=== PATIENT | male | born 1995 | race Caucasian/White ===

== ENCOUNTER → 2017-05-13 | Outpatient (CLI) | payer OTHER, SELFPAY | PROVIDERS: Family Provider Family Medicine; Visit Provider Family Medicine | DX: M79.641 Pain in right hand (principal) | CPT/HCPCS: 73130 ==

== ENCOUNTER 2017-08-09 09:43 | Emergency (ER) | payer OTHER, SELFPAY ==
[2017-08-09 09:54] VITALS: BMI 26.3
--- NOTE | 2017-08-09 09:55 | XR_ITS ---
XR wrist LT min 3V HISTORY: Pain following injury ITS.REASON: S/P FALL ORDERING PHYSICIAN: Misty Chase PATIENT AGE: 22 years COMPARISON: None FINDINGS: No acute fracture or dislocation. No lytic or blastic change. There is normal mineralization.. The joint spaces are well-preserved. No significant degenerative/arthritic changes. No erosive changes evident.. 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 IMPRESSION: 1. No acute fracture. 2. 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
--- NOTE | 2017-08-09 09:55 | XR_ITS ---
XR hand LT min 3V HISTORY: Pain following injury ITS.REASON: S/P FALL ORDERING PHYSICIAN: Misty Chase PATIENT AGE: 22 years COMPARISON: None FINDINGS: No fracture or dislocation. No lytic or blastic change. There is normal mineralization.. The joint spaces are well-preserved. No significant degenerative/arthritic changes. No erosive changes evident.. IMPRESSION: Negative, no acute finding
[2017-08-09 09:56] VITALS: BP 143/94; PULSE 96; RESP 20; TEMP 36.8; O2SAT 98; BMI 26.3
--- NOTE | 2017-08-09 10:28 | HMH.EDUTC ---
[facility] [place]ression: Wrist fracture, left Qualifiers: Encounter type: initial encounter Fracture type: closed Qualified Code(s): S62.102A - Fracture of unspecified carpal bone, left wrist, initial encounter for closed fracture Disposition: Home, Self-Care Condition on Discharge: Good Instructions: DI for Wrist Fracture, How To Perform RICE (Rest, Ice, Compress, Elevate) Additional Instructions: *RICE, Rest the extremity, Ice 15-20 minutes 3-4 times daily, Compress- wear the jeffy wrap as discussed as much as possible to help reduce swelling and pain, Elevate the extremity when at rest *Jeffy wrap is for support and help control swelling, use it except in the shower. Be sure that is not to tight but not to loose either *Elevate when resting *Ibuprofen every 6-8 hours as needed for pain an inflammation. If need something more can take Tylenol in between doses of Ibuprofen to help Immediately follow up for new or worsening of symptoms, or no noticeable improvement over the next 3-5 days I addded a lortab 7.5 mg po bid prn q 12 # 6 neurovasular check every hpur while awake. Call for appointment with Dr matthews at orthopedic in AM call Dr Granados in AM for a recheck on final x ray report. Referrals: Jignesh Granados MD [Primary Care Provider] - (On Thursday for further treatment/referral ) Yoseph Munoz MD [Staff Physician] - Ming Silva MD [Staff Physician] - Forms: Work/School Release Time of Disposition: 10:48 Medical Decision Making - Medical Records Medical records reviewed: Yes: I reviewed the patient's medical records. - Parviz Inquiry Pt receiving controlled substance: No Parviz was queried for this patient: No Vital Signs: 08/09/17 09:56 Temperature 98.2 F Temperature Source Oral Pulse Rate [Right Brachial] 96 H Respiratory Rate 20 Blood Pressure [Right Arm] 143/94 Blood Pressure Mean [Right Arm] 110 Blood Pressure Source [Right Arm] Automatic Cuff Blood Pressure Position [Right Arm] Sitting 02 Sat by Pulse Oximetry 98 Oxygen Delivery Method Room Air - Radiology Data #1 Image(s): Wrist ulna fracture (questionable new or old fracture) - Reevaluation(s) Time: 10:44 Reevaluation #1: Consulted with Dr Sadek ER physican and agreed apply velcro splint place patient in arm sling and have him follow up with orthopedics/hand surgery at where patient was previously seen for old fracture. Called hand awaiting call back for appointment and patient undergoing evaluation by Dr Waggoner [facility] [place] - General Stated complaint: ao [id number] hurt left hand Time Seen by Provider: 08/09/17 10:10 Mode of Arrival: Family Vehicle Source of Information: Patient Limitations: No Limitations Description of Symptoms (Recalled from Triage Doc. by RN): S/P FALL C/O PAIN LEFT WRIST/HAND HEENT Symptoms (Recalled from RN notes): No Resp Symptoms (Recalled from RN notes): No Skin Symptoms (Recalled from RN notes): No MS Symptoms (Recalled from RN notes): Yes Functional Status (Recalled from RN notes): N/A - History of Present Illness Provider Complaint: Patient was helping younger siblings and was playing in the snow with them when he slipped and fell and landed on his left hand/wrist State that he felt it pop state that he immediately begin to have swelling and tenderness in the wrist and knew he had broken it State that he has broken his arm before and this felt the same - Related Data Home Medications Medication Instructions Recorded Confirmed No Known Home Medications [No 08/09/17 08/09/17 Known Home Medications] Allergies Allergy/AdvReac Type Severity Reaction Status Date / Time No Known Allergies Allergy Verified 08/09/17 09:53 - Worker's Comp Is this a Worker's Comp case?: No [facility] History I have reviewed the patient's past medical history: Yes Laterality Cases: Bilateral: Tonsillectomy - Social History Alcohol Intake: never - Psychiatric Hist
--- NOTE | 2017-08-09 10:32 | ED_ITS ---
[facility] [place] Clinical Impression: Wrist fracture, left Qualifiers: Encounter type: initial encounter Fracture type: closed Qualified Code(s): S62.102A - Fracture of unspecified carpal bone, left wrist, initial encounter for closed fracture Disposition: Home, Self-Care Condition on Discharge: Good Instructions: DI for Wrist Fracture, How To Perform RICE (Rest, Ice, Compress, Elevate) Additional Instructions: *RICE, Rest the extremity, Ice 15-20 minutes 3-4 times daily, Compress- wear the jeffy wrap as discussed as much as possible to help reduce swelling and pain, Elevate the extremity when at rest *Jeffy wrap is for support and help control swelling, use it except in the shower. Be sure that is not to tight but not to loose either *Elevate when resting *Ibuprofen every 6-8 hours as needed for pain an inflammation. If need something more can take Tylenol in between doses of Ibuprofen to help Immediately follow up for new or worsening of symptoms, or no noticeable improvement over the next 3-5 days I addded a lortab 7.5 mg po bid prn q 12 # 6 neurovasular check every hpur while awake. Call for appointment with Dr matthews at orthopedic in AM call Dr Granados in AM for a recheck on final x ray report. Referrals: Jignesh Granados MD [Primary Care Provider] - (On Thursday for further treatment/ referral ) Yoseph Munoz MD [Staff Physician] - Ming Silva MD [Staff Physician] - Forms: Work/School Release Time of Disposition: 10:48 Medical Decision Making - Medical Records Medical records reviewed: Yes: I reviewed the patient's medical records. - Parviz Inquiry Pt receiving controlled substance: No Parviz was queried for this patient: No Vital Signs: 08/09/17 09:56 Temperature 98.2 F Temperature Source Oral Pulse Rate [Right Brachial] 96 H Respiratory Rate 20 Blood Pressure [Right Arm] 143/94 Blood Pressure Mean [Right Arm] 110 Blood Pressure Source [Right Arm] Automatic Cuff Blood Pressure Position [Right Arm] Sitting 02 Sat by Pulse Oximetry 98 Oxygen Delivery Method Room Air - Radiology Data #1 Image(s): Wrist ulna fracture (questionable new or old fracture) - Reevaluation(s) Time: 10:44 Reevaluation #1: Consulted with Dr Sadek ER physican and agreed apply velcro splint place patient in arm sling and have him follow up with orthopedics/hand surgery at where patient was previously seen for old fracture. Called hand awaiting call back for appointment and patient undergoing evaluation by Dr Waggoner [facility] [place] HPI - General Stated complaint: ao [id number] hurt left hand Time Seen by Provider: 08/09/17 10:10 Mode of Arrival: Family Vehicle Source of Information: Patient Limitations: No Limitations Description of Symptoms (Recalled from Triage Doc. by RN): S/P FALL C/O PAIN LEFT WRIST/HAND HEENT Symptoms (Recalled from RN notes): No Resp Symptoms (Recalled from RN notes): No Skin Symptoms (Recalled from RN notes): No MS Symptoms (Recalled from RN notes): Yes Functional Status (Recalled from RN notes): N/A - History of Present Illness Provider Complaint: Patient was helping younger siblings and was playing in the snow with them when he slipped and fell and landed on his left hand/wrist State that he felt it pop state that he immediately begin to have swelling and tenderness in the wrist and knew he had broken it State that he has broken his arm before and this felt the same - Related Data Home
--- NOTE | 2017-08-09 11:01 | HMH.EDUPEXT ---
ED Disposition Clinical Impression: Wrist fracture, left Qualifiers: Encounter type: initial encounter Fracture type: closed Qualified Code(s): S62.102A - Fracture of unspecified carpal bone, left wrist, initial encounter for closed fracture Disposition: Home, Self-Care Condition on Discharge: Fair Instructions: DI for Wrist Fracture, How To Perform RICE (Rest, Ice, Compress, Elevate) Additional Instructions: *RICE, Rest the extremity, Ice 15-20 minutes 3-4 times daily, Compress- wear the jeffy wrap as discussed as much as possible to help reduce swelling and pain, Elevate the extremity when at rest *Jeffy wrap is for support and help control swelling, use it except in the shower. Be sure that is not to tight but not to loose either *Elevate when resting *Ibuprofen every 6-8 hours as needed for pain an inflammation. If need something more can take Tylenol in between doses of Ibuprofen to help Immediately follow up for new or worsening of symptoms, or no noticeable improvement over the next 3-5 days I addded a lortab 7.5 mg po bid prn q 12 # 6 neurovasular check every hpur while awake. Call for appointment with Dr pete at orthopedic in AM call Dr Granados in AM for a recheck on final x ray report. Referrals: Yoseph Munoz MD [Staff Physician] - Ming Silva MD [Staff Physician] - Jignesh Granados MD [Primary Care Provider] - (On Thursday for further treatment/referral ) - Critical Care Critical Care Time: No Attestation: On 08/09/17, the high probability of a clinically significant, sudden or life threatening deterioration of the following system(s) required my full and direct attention, intervention and personal management. The time I documented below is in addition to time spent performing reported procedures but includes the following listed in this critical care notation. Medical Decision Making - Parviz Inquiry Pt receiving controlled substance: No Parviz was queried for this patient: No Vital Signs: 08/09/17 09:56 Temperature 98.2 F Temperature Source Oral Pulse Rate [Right Brachial] 96 H Respiratory Rate 20 Blood Pressure [Right Arm] 143/94 Blood Pressure Mean [Right Arm] 110 Blood Pressure Source [Right Arm] Automatic Cuff Blood Pressure Position [Right Arm] Sitting 02 Sat by Pulse Oximetry 98 Oxygen Delivery Method Room Air - Radiology Data #1 Image(s): Wrist, Hand Image Reviewed: Yes I reviewed the patient's radiology image Preliminary Findings: Abnormal Nondisplaced ulnar styloid fracture, carpal, metacarpal and phalangeal bones were intact. Intact radial ulnar lunate line. Medical Decision Narrative: Prior to discharge the patient was reevaluated he remained neurovascularly intact. Motor was 5/5, intact pinprick sensation, and cap refill was ne second. I spke with Dr Romero the hand surgeon who wanted me to discuss with [facility] trauma. I called Dr Pete who agreed to see the patient in the clinic [phone]. I faxed the patient face sheet to [facility] and gave the patient the contact number to call for an apppointment in am. Upper Extremity HPI - General Stated Complaint: ao [id number] hurt left hand Time Seen by Provider: 08/09/17 10:10 Mode of Arrival: Family Vehicle Source of Information: Patient Limitations: No Limitations Description of Symptoms (Recalled from ER Triage Doc. by RN): S/P FALL C/O PAIN LEFT WRIST/HAND - History of Present Illness HPI narrative: 22 years old white male with a prior history of for mild fracture is patient of Dr. Lindsay at orthopedic surgery. This morning, the patient was building a snowman with his brother and sister when he slipped on ice landed on the hyperextended wrist with a result of pain and swelling all over the left fifth metacarpal region. There is no loss of movement there is no color change. He complains of a small area of numbness over the left fourth middle phalanges. But he has intact sensation on t
--- NOTE | 2017-08-09 11:04 | ED_ITS ---
ED Disposition Clinical Impression: Wrist fracture, left Qualifiers: Encounter type: initial encounter Fracture type: closed Qualified Code(s): S62.102A - Fracture of unspecified carpal bone, left wrist, initial encounter for closed fracture Disposition: Home, Self-Care Condition on Discharge: Fair Instructions: DI for Wrist Fracture, How To Perform RICE (Rest, Ice, Compress, Elevate) Additional Instructions: *RICE, Rest the extremity, Ice 15-20 minutes 3-4 times daily, Compress- wear the jeffy wrap as discussed as much as possible to help reduce swelling and pain, Elevate the extremity when at rest *Jeffy wrap is for support and help control swelling, use it except in the shower. Be sure that is not to tight but not to loose either *Elevate when resting *Ibuprofen every 6-8 hours as needed for pain an inflammation. If need something more can take Tylenol in between doses of Ibuprofen to help Immediately follow up for new or worsening of symptoms, or no noticeable improvement over the next 3-5 days I addded a lortab 7.5 mg po bid prn q 12 # 6 neurovasular check every hpur while awake. Call for appointment with Dr pete at orthopedic in AM call Dr Granados in AM for a recheck on final x ray report. Referrals: Yoseph Munoz MD [Staff Physician] - Ming Silva MD [Staff Physician] - Jignesh Granados MD [Primary Care Provider] - (On Thursday for further treatment/ referral ) - Critical Care Critical Care Time: No Attestation: On 08/09/17, the high probability of a clinically significant, sudden or life threatening deterioration of the following system(s) required my full and direct attention, intervention and personal management. The time I documented below is in addition to time spent performing reported procedures but includes the following listed in this critical care notation. Medical Decision Making - Parviz Inquiry Pt receiving controlled substance: No Parviz was queried for this patient: No Vital Signs: 08/09/17 09:56 Temperature 98.2 F Temperature Source Oral Pulse Rate [Right Brachial] 96 H Respiratory Rate 20 Blood Pressure [Right Arm] 143/94 Blood Pressure Mean [Right Arm] 110 Blood Pressure Source [Right Arm] Automatic Cuff Blood Pressure Position [Right Arm] Sitting 02 Sat by Pulse Oximetry 98 Oxygen Delivery Method Room Air - Radiology Data #1 Image(s): Wrist, Hand Image Reviewed: Yes I reviewed the patient's radiology image Preliminary Findings: Abnormal Nondisplaced ulnar styloid fracture, carpal, metacarpal and phalangeal bones were intact. Intact radial ulnar lunate line. Medical Decision Narrative: Prior to discharge the patient was reevaluated he remained neurovascularly intact. Motor was 5/5, intact pinprick sensation, and cap refill was ne second. I spke with Dr Romero the hand surgeon who wanted me to discuss with [facility] trauma. I called Dr Pete who agreed to see the patient in the clinic [phone]. I faxed the patient face sheet to [facility] and gave the patient the contact number to call for an apppointment in am. Upper Extremity HPI - General Stated Complaint: ao [id number] hurt left hand Time Seen by Provider: 08/09/17 10:10 Mode of Arrival: Family Vehicle Source of Information: Patient Limitations: No Limitations Description of Symptoms (Recalled from ER Triage Doc. by RN): S/P FALL C/O PAIN LEFT WRIST/HAND - History of Present Illness HPI narrati
[2017-08-09 11:35] VITALS: BP 140/88; PULSE 90; RESP 20; TEMP 36.6; O2SAT 97
== END 2017-08-09 11:37 | disposition home or self-care (01) ==
PROVIDERS: Emergency Provider Nurse Practitioner; Family Provider Family Medicine; PCP Family Medicine
DX: S62.102A Fracture of unspecified carpal bone, left wrist, initial encounter for closed fracture (principal); W00.0XXA Fall on same level due to ice and snow, initial encounter; Y92.018 Other place in single-family (private) house as the place of occurrence of the external cause
CPT/HCPCS: 73110; 73130; 99203

== ENCOUNTER 2019-11-08 13:01 | Emergency (ER) | payer OTHER, SELFPAY ==
[2019-11-08 13:01] VITALS: BP 148/89; PULSE 86; RESP 16; TEMP 38.1; O2SAT 97; BMI 25.0
--- NOTE | 2019-11-08 13:17 | HMH.EDUTC ---
[facility] [place] Impression: Upper respiratory infection Qualifiers: URI type: unspecified URI Qualified Code(s): J06.9 - Acute upper respiratory infection, unspecified Disposition: Home, Self-Care Condition on Discharge: Good Instructions: Sore Throat, DI for Sinusitis, DI for Cough -- Adult, DI for Fever (Symptom) -- Adult, Preventing the Spread of Coronavirus Discharge Instructions Additional Instructions: *Monitor Temp, Over the counter Motrin or Tylenol as directed/as needed Tylenol every 4 hours and Motrin every 6 hours (as long as your family doctor has told you that you can take it) for fever or pain. and straight to ER if unable to lower temp less than 101.0 after medication given *Warm salt water gargles may help to soothe the throat *Throat Lozenges *Warm fluids like tea with honey may help to soothe the throat *Sleep elevated *Humidifier/Vaporizer Make sure to take medication as prescribed You may call back tomorrow evening for your test results of your COVID19 test Go home and self quarantine as advised in [facility], no return to work until COVID19 test back with a negative result You was given handout with instructions, make sure that you are at home self isolating and not being out around other people Your throat swab was sent for culture. Those results are typically sent to your primary care. Be sure to follow up in 2-3 days with your family doctor/primary care physician if no improvement so they can review those result and treat if necessary. If you don?t have a primary care doctor, I recommend you get one but in the mean time, you will have to return to a walk in clinic Follow up IMMEDIATELY for new or worsening symptoms or no Noticeable improvement over the next 48-72 hours. 911 for difficulty breathing or swallowing Prescriptions: Benzonatate [Tessalon Perle 100mg Cap*] 100 mg PO TID PRN #15 cap PRN Reason: Cough Transmission Status: Sent to [facility] Azithromycin [Z-Jose Juan 250mg Tab] 250 mg PO DIRECTED #6 tab Transmission Status: Sent to [facility] Referrals: Catracho Sage MD [Primary Care Provider] - As needed Forms: Work/School Release Time of Disposition: 13:36 Medical Decision Making - Parviz Inquiry Pt receiving controlled substance: No Parviz was queried for this patient: No Vital Signs: 11/08/19 13:01 Temperature 100.5 F H Temperature Source Oral Pulse Rate [Left Radial] 86 Respiratory Rate 16 Blood Pressure [Right Arm] 148/89 H Blood Pressure Mean [Right Arm] 108 Blood Pressure Source [Right Arm] Automatic Cuff Blood Pressure Position [Right Arm] Sitting 02 Sat by Pulse Oximetry 97 Oxygen Delivery Method Room Air - Lab Data Lab results reviewed: Yes: I reviewed the patient's lab results. Lab Results 11/08/19 13:14: Strep Scn Rapid Clinic Negative Orders (Tests/Meds): ED MEDICATIONS Discontinued Medications Generic Name Dose Route Start Last Admin Trade Name Aminata PRN Reason Stop Dose Admin Ibuprofen 600 mg 11/08/19 13:19 11/08/19 13:22 Motrin 600mg Tablet PO 11/08/19 13:20 Not Given ONCE ONE Ibuprofen 400 mg 11/08/19 13:21 11/08/19 13:22 Motrin 400mg Tablet PO 11/08/19 13:22 400 mg ONCE ONE Administration ORDERS Category Date Time Status SARS-CoV-2, TOMI Stat Lab 11/08/19 13:25 Ordered Strep Screen Confirmation Stat Micro 11/08/19 13:14 Ordered [facility] [place]PI - General Stated complaint: sore throat,vomiting Time Seen by Provider: 11/08/19 13:17 Mode of Arrival: Ambulatory Source of Information: Patient Limitations: No Limitations Description of Symptoms (Recalled from Triage Doc. by RN): pt stated he has had a sore throat and cough for the past two days and vomited once while in a coughing fit HEENT Symptoms (Recalled from RN notes): Yes Resp Symptoms (Recalled from RN notes): Yes Skin Symptoms (Recalled from RN notes): No MS Symptoms (Recalled from RN notes): No Functional Status (Recalled from RN
[2019-11-08 13:28] LABS: UTC Strep Screen (Rapid) Negative (Negative)
[2019-11-08 13:47] VITALS: BP 137/87; PULSE 87; RESP 16; TEMP 37.8; O2SAT 98
[2019-11-09 15:16] LABS: Covid-19 Nasal PCR Sendout Lex Not Detected
== END 2019-11-08 13:49 | disposition home or self-care (01) ==
PROVIDERS: Emergency Provider Nurse Practitioner; PCP Family Medicine
DX: J06.9 Acute upper respiratory infection, unspecified (principal)
CPT/HCPCS: 87880; 99201; U0004

== ENCOUNTER 2020-01-26 15:00 | Emergency (ER) | payer OTHER, SELFPAY ==
[2020-01-26 15:47] VITALS: BMI 25.7
--- NOTE | 2020-01-26 15:48 | XR_ITS ---
PROCEDURE: XR CHEST 2V CLINICAL HISTORY: PAIN WITH BREATHING COMPARISON: No exams were available for comparison FINDINGS: The cardiomediastinal silhouette and pulmonary vascularity are within normal limits. The lungs are clear without infiltrates, suspicious nodules, or pleural effusions. No acute bony abnormalities. IMPRESSION: No acute findings. Dictated by: Xiang Washington MD 01/26/2020 16:15 Xiang Washington MD in OV 01/26/2020 16:15
[2020-01-26 15:56] VITALS: BP 139/70; PULSE 88; RESP 16; TEMP 36.7; O2SAT 97; BMI 25.7
--- NOTE | 2020-01-26 16:02 | HMH.EDUTC ---
[facility] [place] Disposition Clinical Impression: Upper respiratory infection Qualifiers: URI type: unspecified URI Qualified Code(s): J06.9 - Acute upper respiratory infection, unspecified Disposition: Home, Self-Care Condition on Discharge: Good Instructions: DI for Acute Bronchitis, Acute Bronchitis, Sore Throat Additional Instructions: *Monitor Temp, Over the counter Motrin or Tylenol as directed/as needed Tylenol every 4 hours and Motrin every 6 hours (as long as your family doctor has told you that you can take it) for fever or pain. and straight to ER if unable to lower temp less than 101.0 after medication given *Warm salt water gargles may help to soothe the throat *Throat Lozenges *Warm fluids like tea with honey may help to soothe the throat *Sleep elevated *Humidifier/Vaporizer Take medication as prescribed Return if needed Follow up IMMEDIATELY for new or worsening symptoms or no Noticeable improvement over the next 48-72 hours. 911 for difficulty breathing or swallowing Prescriptions: methylPREDNISolone [Medrol 4mg tab] 4 mg PO DIRECTED #21 tab Transmission Status: Sent to [facility] Azithromycin [Z-Jose Juan 250mg Tab] 250 mg PO DIRECTED #6 tab Transmission Status: Sent to [facility] Referrals: Jignesh Granados MD [Primary Care Provider] - As needed Time of Disposition: 16:23 Medical Decision Making - Parviz Inquiry Pt receiving controlled substance: No Parviz was queried for this patient: No Vital Signs: 01/26/20 15:56 Temperature 98.1 F Temperature Source Oral Pulse Rate [Right Brachial] 88 Respiratory Rate 16 Blood Pressure [Right Arm] 139/70 Blood Pressure Mean [Right Arm] 93 Blood Pressure Source [Right Arm] Automatic Cuff Blood Pressure Position [Right Arm] Sitting 02 Sat by Pulse Oximetry 97 Oxygen Delivery Method Room Air [facility] [place] HPI - General Stated complaint: Chest congestion Time Seen by Provider: 01/26/20 16:02 Mode of Arrival: Ambulatory Source of Information: Patient Limitations: No Limitations Description of Symptoms (Recalled from Triage Doc. by RN): PATIENT STATES HE WAS EXPOSED TO CONCRETE DUST AT WORK APPROX 2 WEEKS AGO AND C/O PAIN IN HIS CHEST WITH DEEP BREATHS SINCE HEENT Symptoms (Recalled from RN notes): No Resp Symptoms (Recalled from RN notes): Yes Skin Symptoms (Recalled from RN notes): No MS Symptoms (Recalled from RN notes): No Functional Status (Recalled from RN notes): WNL - History of Present Illness Provider Complaint: Patient states that he was exposed to concrete dust about 2 weeks ago States that he has been having coughing and chest congestion and hurts at times when he takes a deep breath or coughs States that he was worried that he may have bronchitis - Related Data Previous Rx's Medication Instructions Recorded Azithromycin [Z-Jose Juan 250mg Tab] 250 mg PO DIRECTED #6 tab 01/26/20 methylPREDNISolone [Medrol 4mg 4 mg PO DIRECTED #21 tab 01/26/20 tab] Allergies Allergy/AdvReac Type Severity Reaction Status Date / Time No Known Allergies Allergy Verified 11/08/19 13:17 - Worker's Comp Is this a Worker's Comp case?: No [facility] History - Hepatitis A Screen Drug use history?: No High risk sexual behaviors?: No History of sexually transmitted infection?: No Currently employed?: No Childcare worker?: No Do you have indoor plumbing?: Yes Do you have electricity?: Yes Attestation statement:: This patient has been screened for Hepatitis A risk factors. I have reviewed the patient's past medical history: Yes Laterality Cases: Bilateral: Tonsillectomy - Social History Alcohol Intake: never Occupational Status: other ROS Obtained: Yes All systems reviewed & no additional complaints, Yes Systems reviewed as appropriate & no additional complaints - Constitutional Constitutional: Reports system reviewed and no additional complaints, except as docu - ENT Ears, Nose, Mouth, and Throat: Reports nasal congestio
[2020-01-26 16:31] VITALS: BP 139/70; PULSE 88; RESP 16; TEMP 36.7; O2SAT 97
== END 2020-01-26 16:34 | disposition home or self-care (01) ==
PROVIDERS: Emergency Provider Nurse Practitioner; PCP Family Medicine
DX: J06.9 Acute upper respiratory infection, unspecified (principal)
CPT/HCPCS: 71046; 99201

== ENCOUNTER 2020-03-19 09:25 | Emergency (ER) | payer SELFPAY ==
[2020-03-19 09:40] VITALS: BP 136/92; PULSE 75; RESP 20; TEMP 36.7; O2SAT 98; BMI 25.0
--- NOTE | 2020-03-19 09:59 | HMH.EDUTC ---
[facility] [place] Clinical Impression: Viral syndrome Pharyngitis Qualifiers: Pharyngitis/tonsillitis etiology: unspecified etiology Qualified Code(s): J02.9 - Acute pharyngitis, unspecified Disposition: Home, Self-Care Condition on Discharge: Good Instructions: DI for Viral Syndrome Additional Instructions: Drink plenty of fluids. Take tylenol for pain or fever. Take the medications as directed. Follow up with your regular doctor. GO TO THE ER FOR ANY WORSENING SYMPTOMS Prescriptions: Ondansetron [Zofran 4mg ODT] 4 mg PO Q8HP PRN #9 tab.rapdis PRN Reason: Nausea Transmission Status: Received by [facility] Azithromycin [Z-Jose Juan 250mg Tab*] 250 mg PO UD DOSE PK #6 tab Transmission Status: Received by [facility] Referrals: Jignesh Granados MD [Primary Care Provider] - Forms: Work/School Release Time of Disposition: 10:19 Medical Decision Making - Medical Records Medical records reviewed: No: I reviewed the patient's medical records. - Parviz Inquiry Pt receiving controlled substance: No Vital Signs: 03/19/20 09:40 03/19/20 10:23 Temperature 98.0 F 98.0 F Temperature Source Oral Pulse Rate 75 Pulse Rate [Right Brachial] 75 Respiratory Rate 20 20 Blood Pressure 136/92 H Blood Pressure [Right Arm] 136/92 H Blood Pressure Mean [Right Arm] 106 Blood Pressure Source [Right Arm] Automatic Cuff Blood Pressure Position [Right Arm] Sitting 02 Sat by Pulse Oximetry 98 Oxygen Delivery Method Room Air - Lab Data Lab results reviewed: Yes: I reviewed the patient's lab results. Orders (Tests/Meds): ORDERS Category Date Time Status Covid-19 Nasal PCR ([facility]) Routine Lab 03/19/20 10:24 Ordered [facility] [place] - General Stated complaint: possible covid exposure Time Seen by Provider: 03/19/20 09:59 - History of Present Illness Provider Complaint: He states that he began running a fever up to 100.5 and feeling bad for the past 3 days. His girlfriend has simialar symptoms. - Related Data Previous Rx's Medication Instructions Recorded Azithromycin [Z-Jose Juan 250mg Tab] 250 mg PO DIRECTED #6 tab 01/26/20 methylPREDNISolone [Medrol 4mg 4 mg PO DIRECTED #21 tab 01/26/20 tab] Azithromycin [Z-Jose Juan 250mg Tab*] 250 mg PO UD DOSE PK #6 tab 03/19/20 Ondansetron [Zofran 4mg ODT] 4 mg PO Q8HP PRN #9 tab.rapdis 03/19/20 Allergies Allergy/AdvReac Type Severity Reaction Status Date / Time No Known Allergies Allergy Verified 11/08/19 13:17 [facility] History - Hepatitis A Screen Attestation statement:: This patient has been screened for Hepatitis A risk factors. I have reviewed the patient's past medical history: Yes Laterality Cases: Bilateral: Tonsillectomy - Social History Alcohol Intake: never Occupational Status: other ROS Obtained: Yes All systems reviewed & no additional complaints - Constitutional Constitutional: Reports chills, Reports fever(s), Reports poor appetite, Reports malaise - Eyes Eyes: Denies eye discharge - ENT Ears, Nose, Mouth, and Throat: Denies dizziness, Denies otalgia, Reports sore throat - Cardiovascular Cardiovascular: Denies chest pain - Respiratory Respiratory: No chest congestion, Yes cough, No dyspnea, No stridor, No wheezing - Gastrointestinal Gastrointestingal: Reports: nausea. Denies: abdominal pain, diarrhea, vomiting Physical Exam - General General appearance: alert, in no apparent distress - Head Head exam: atraumatic, normocephalic, normal inspection - Eye Eye exam: Present: normal appearance, PERRL, EOMI - ENT ENT exam: Present: mucous membranes moist, normal external ear exam - Expanded ENT Exam TM/Canal exam: Bilateral TM: erythema, bulging Mouth exam: Present: normal external inspection Teeth exam: Present: normal inspection Throat exam: Present: tonsillar erythema, tonsillomegaly. Absent: tonsillar exudate, R peritonsillar mass, L peritonsillar mass - Neck Ne
[2020-03-19 10:23] VITALS: BP 136/92; PULSE 75; RESP 20; TEMP 36.7; O2SAT 98
[2020-03-19 19:02] LABS: UTC Influenza A Antigen Negative (Negative); UTC Strep Screen (Rapid) Negative (Negative)
[2020-03-19 19:03] LABS: UTC Influenza B Antigen Negative (Negative)
== END 2020-03-19 10:27 | disposition home or self-care (01) ==
PROVIDERS: Emergency Provider Nurse Practitioner Family; PCP Family Medicine
DX: Z20.828 Contact with and (suspected) exposure to other viral communicable diseases (principal); B34.9 Viral infection, unspecified; J02.9 Acute pharyngitis, unspecified
CPT/HCPCS: 87804; 87880; 99202; U0003

== ENCOUNTER 2020-05-08 11:50 | Emergency (ER) | payer SELFPAY ==
[2020-05-08 11:50] VITALS: BP 133/83; PULSE 79; RESP 18; TEMP 36.9; O2SAT 99; BMI 24.4
--- NOTE | 2020-05-08 12:01 | HMH.EDUTC ---
[facility] [place] Clinical Impression: Acute hemorrhoid Disposition: Home, Self-Care Condition on Discharge: Good Instructions: Hemorrhoids (Alternative Therapy), Hemorrhoids (Alternative Therapy), Hemorrhoids, Polyethylene Glycol 3350, Hydrocortisone Rectal Additional Instructions: Take a sitz bath. Fill a bathtub with 4 to 6 inches of warm water. You may also use a sitz bath moon that fits inside a toilet bowl. Sit in the sitz bath for 15 minutes. Do this 3 times a day, and after each bowel movement. The warm water can help decrease pain and swelling. Keep your anal area clean. Gently wash the area with warm water daily. Soap may irritate the area. After a bowel movement, wipe with moist towelettes or wet toilet paper. Dry toilet paper can irritate the area. Prevent hemorrhoids: Do not strain to have a bowel movement. Do not sit on the toilet too long. These actions can increase pressure on the tissues in your rectum and anus. Drink plenty of liquids. Liquids can help prevent constipation. Ask how much liquid to drink each day and which liquids are best for you. Eat a variety of high-fiber foods. Do not have anal sex. Anal sex can weaken the skin around your rectum and anus. Avoid heavy lifting. This can cause straining and increase your risk for another hemorrhoid. Over the counter Motrin may help with inflammation and pain Use medication as prescribed if no improvement follow up with your Family Doctor for further evaluation and examination Straight to ER if any life threatening symptoms Prescriptions: polyethylene glycoL 3350 [Miralax 17gm Packet] 17 gm PO DAILY #30 packet Transmission Status: Pending to [facility] Hydrocortisone [Proctosol-Hc] 1 applicatio TP BID #1 tube Transmission Status: Pending to [facility] Referrals: Jignesh Granados MD [Primary Care Provider] - As needed Forms: Work/School Release Time of Disposition: 12:10 Medical Decision Making - Parviz Inquiry Pt receiving controlled substance: No Parviz was queried for this patient: No Vital Signs: 05/08/20 11:50 Temperature 98.4 F Temperature Source Oral Pulse Rate [Left Brachial] 79 Respiratory Rate 18 Blood Pressure [Left Arm] 133/83 Blood Pressure Mean [Left Arm] 99 Blood Pressure Source [Left Arm] Automatic Cuff Blood Pressure Position [Left Arm] Sitting 02 Sat by Pulse Oximetry 99 Oxygen Delivery Method Room Air [facility] [place] - General Stated complaint: hemoroids Time Seen by Provider: 05/08/20 11:55 Mode of Arrival: Ambulatory Source of Information: Patient Limitations: No Limitations Description of Symptoms (Recalled from Triage Doc. by RN): PATIENT C/O HEMORRHOIDS X 1 WEEK HEENT Symptoms (Recalled from RN notes): No Resp Symptoms (Recalled from RN notes): No Skin Symptoms (Recalled from RN notes): No MS Symptoms (Recalled from RN notes): No Functional Status (Recalled from RN notes): WNL - History of Present Illness Provider Complaint: Patient states that he has had a hemorrhoid for about a week and has tried several over the counter medications and wipes and they have not helped so he come in to see if there was something else he could get States that today it was itching and felt swollen again - Related Data Previous Rx's Medication Instructions Recorded Hydrocortisone [Proctosol-Hc] 1 applicatio TP BID #1 tube 05/08/20 polyethylene glycoL 3350 [Miralax 17 gm PO DAILY #30 packet 05/08/20 17gm Packet] Allergies Allergy/AdvReac Type Severity Reaction Status Date / Time No Known Allergies Allergy Verified 11/08/19 13:17 - Worker's Comp Is this a Worker's Comp case?: No [facility] History - Hepatitis A Screen Drug use history?: No High risk sexual behaviors?: No History of sexually transmitted infection?: No Currently employed?: No Childcare worker?: No Do you have indoor plumbing?: Yes Do you have electricity?: Yes Attestation statement:: This patient has been screened for Hepatitis
[2020-05-08 12:14] VITALS: BP 133/83; PULSE 79; RESP 18; TEMP 36.9; O2SAT 99
== END 2020-05-08 12:15 | disposition home or self-care (01) ==
PROVIDERS: Emergency Provider Nurse Practitioner; PCP Family Medicine
DX: K64.4 Residual hemorrhoidal skin tags (principal)
CPT/HCPCS: 99201

== ENCOUNTER 2021-06-26 18:13 | Emergency (ER) | payer OTHER, SELFPAY ==
--- NOTE | 2021-06-26 18:10 | ECG_ITS ---
APPROVED REPORT Exam: Resting ECG HR:94 bpm ECG Measurements Heart Rate 94 AXES PA 153 P 73 QRSd 102 QRS 62 QT 344 T 50 QTc 396 Conclusion SINUS RHYTHM NORMAL ECG UNCONFIRMED REPORT Electronically signed by : Jignesh Crawford MD 06/27/2021 18:49:07
[2021-06-26 18:14] VITALS: BP 154/100; PULSE 94; RESP 18; TEMP 36.7; O2SAT 99; BMI 58.1
--- NOTE | 2021-06-26 18:25 | XR_ITS ---
PROCEDURE INFORMATION: Exam: XR Chest Exam date and time: 06/26/2021 6:25 PM Age: 26 years old Clinical indication: Pain; Chest pressure; Additional info: Cp , PT suzanne TECHNIQUE: Imaging protocol: XR of the chest. Views: 1 view. COMPARISON: CR XR CHEST 2V 01/26/2020 3:52 PM FINDINGS: Lungs: Lungs are clear. Pleural spaces: No pleural effusion. No pneumothorax. Heart/Mediastinum: Cardiomediastinal silouhette is within normal limits. Bones/joints: No acute osseous abnormality. Soft tissues: Unremarkable. IMPRESSION: No acute findings.
--- NOTE | 2021-06-26 18:26 | HMH.EDGENADL ---
ED Disposition Condition on Discharge: Good - Critical Care Critical Care Time: No <Sebastien Liao - Last Filed: 06/26/21 19:14> <Bradly Kelly - Last Filed: 06/26/21 21:54> Clinical Impression: Atypical chest pain Disposition: Home, Self-Care Instructions: DI for Atypical Chest Pain Additional Instructions: see pcp for follow up Referrals: Provider,Referral, MD [Primary Care Provider] - Attestation: On 06/26/21, the high probability of a clinically significant, sudden or life threatening deterioration of the following system(s) required my full and direct attention, intervention and personal management. The time I documented below is in addition to time spent performing reported procedures but includes the following listed in this critical care notation. Medical Decision Making - Medical Records Medical records reviewed: Yes: I reviewed the patient's medical records. - Parviz Inquiry Pt receiving controlled substance: No Parviz was queried for this patient: No - Lab Data Result diagrams: 06/26/21 18:16 06/26/21 18:16 <YanniSebastien - Last Filed: 06/26/21 19:14> - Lab Data Lab results reviewed: Yes: I reviewed the patient's lab results. Result diagrams: 06/26/21 18:16 06/26/21 18:16 - Radiology Data #1 Image(s): Chest Image Reviewed: Yes I have reviewed radiologist's interpretation Preliminary Findings: Normal/NAD - DEXTER Score for Non-Stemi Age of Patient: <30 years old Heart Rate: 90-109 bpm Systolic Blood Pressure: 140-159 mmHg Serum Creatinine: 0.80-1.19 mg/dl CHF Killip Class: I-No CHF Other Risk Factors: None Non-Stemi Risk Score: 46 <Bradly Kelly - Last Filed: 06/26/21 21:54> Vital Signs: 06/26/21 18:14 06/26/21 18:30 06/26/21 19:00 Temperature 98.0 F Temperature Source Oral Pulse Rate 85 75 Pulse Rate [Right Brachial] 94 H Respiratory Rate 18 14 14 Blood Pressure 145/98 H 135/91 H Blood Pressure [Right Arm] 154/100 H Blood Pressure Mean Blood Pressure Mean [Right Arm] 118 Blood Pressure Source [Right Arm] Automatic Cuff Blood Pressure Position [Right Arm] Supine 02 Sat by Pulse Oximetry 99 97 95 Oxygen Delivery Method Room Air 06/26/21 20:30 06/26/21 21:00 Temperature Temperature Source Pulse Rate 73 84 Pulse Rate [Right Brachial] Respiratory Rate 16 Blood Pressure 131/91 H 137/80 Blood Pressure [Right Arm] Blood Pressure Mean 94 Blood Pressure Mean [Right Arm] Blood Pressure Source [Right Arm] Blood Pressure Position [Right Arm] 02 Sat by Pulse Oximetry 96 97 Oxygen Delivery Method Room Air - Lab Data Lab Results 06/26/21 18:16: WBC 8.2, RBC 5.24, Hgb 16.0, Hct 47.9, MCV 91.4, MCH 30.5, MCHC 33.4, RDW 13.1, Plt Count 210, MPV 9.7, Neut % (Auto) 68.2, Lymph % (Auto) 25.0, Sully % (Auto) 5.1, Eos % (Auto) 1.0, Baso % (Auto) 0.7, Neut # (Auto) 5.6, Lymph # (Auto) 2.0, Sully # (Auto) 0.4, Eos # (Auto) 0.1, Baso # (Auto) 0.1 06/26/21 18:16: Sodium 139, Potassium 4.1, Chloride 96 L, Carbon Dioxide 28, Anion Gap 19.1 H, BUN 17, Creatinine 0.90, Estimated Creat Clear 139, Estimated GFR 101, Est GFR ( Amer) 122, Glucose 101 H, Calcium 10.3 H, Total Bilirubin 0.8, AST 64 H, ALT 58, Alkaline Phosphatase 81, Troponin I < 0.01, Total Protein 8.6 H, Albumin 5.5 H, Globulin 3.1, Albumin/Globulin Ratio 1.8 06/26/21 20:55: Troponin I < 0.01 Orders (Tests/Meds): ED MEDICATIONS Discontinued Medications Generic Name Dose Route Start Last Admin Trade Name Freq PRN Reason Stop Dose Admin Belladonna Alkaloids 60 ml 06/26/21 18:25 06/26/21 18:40 Gi Cocktail 60ml Udc PO 06/26/21 18:26 60 ml ONCE ONE Administration Ketorolac Tromethamine 30 mg 06/26/21 19:13 06/26/21 19:47 Ketorolac 30mg/Ml Vial IV 06/26/21 19:14 30 mg ONCE ONE Administration ORDERS Category Date Time Status Troponin I Q3H Lab 06/27/21 00:30 Ordered Medical Decision Narrative: ekg by me nsr, qr
[2021-06-26 18:30] VITALS: BP 145/98; PULSE 85; RESP 14; O2SAT 97
[2021-06-26 18:32] LABS: Basophils # 0.1 K/mm3 (0-0.2); Basophils % 0.7 % (0.1-2.0); Eosinophils # 0.1 K/mm3 (0.0-0.4); Hematocrit 47.9 % (42.0-52.0); Mean Corpuscular HGB Conc 33.4 g/dL (31.8-35.4); Mean Corpuscular Hemoglobin 30.5 pg (27.0-31.2); Mean Corpuscular Volume 91.4 fl (80-94); Mean Platelet Volume 9.7 fl (7.4-10.4); Monocytes # 0.4 K/mm3 (0.1-1.0); Monocytes % 5.1 % (1.7-9.3); Neutrophils # 5.6 K/mm3 (1.8-7.8); Neutrophils % 68.2 % (37.0-80.0); Platelet Count 210 K/mm3 (142-424); Red Blood Count 5.24 M/mm3 (4.60-6.20); Red Cell Distribution Width 13.1 % (11.5-17.5); White Blood Count 8.2 K/mm3 (4.8-10.8)
[2021-06-26 18:42] LABS: Alanine Aminotransferase 58 U/L (12-78); Albumin Level 5.5 g/dl (3.5-5.0); Albumin/Globulin Ratio 1.8 (1.1-1.8); Alkaline Phosphatase 81 U/L (38-126); Anion Gap 19.1 mEq/L (5-15); Aspartate Amino Transferase 64 U/L (17-59); Bilirubin,Total 0.8 mg/dl (0.2-1.3); Blood Urea Nitrogen 17 mg/dl (9-20); Calcium 10.3 mg/dl (8.4-10.2); Carbon Dioxide 28 mmol/L (22.0-30.0); Chloride 96 mmol/L (98-107); Creatinine Clearance Estimated 139 mL/min (50-200); Estimated Glomerular Filt Rate 101 ml/min (>60); GFR (African American) 122 ML/MIN (>60); Globulin 3.1 g/dL (1.3-3.2); Glucose 101 mg/dl (74-100); Potassium 4.1 mmoL/L (3.5-5.1); Sodium 139 mmol/L (136-145); Total Protein,Serum 8.6 g/dl (6.3-8.2)
[2021-06-26 18:57] LABS: Troponin I < 0.01 ng/ml (0.00-0.034)
[2021-06-26 19:00] VITALS: BP 135/91; PULSE 75; RESP 14; O2SAT 95
[2021-06-26 20:30] VITALS: BP 131/91; PULSE 73; RESP 16; O2SAT 96
[2021-06-26 21:00] VITALS: BP 137/80; PULSE 84; O2SAT 97
[2021-06-26 21:52] LABS: Troponin I < 0.01 ng/ml (0.00-0.034)
[2021-06-26 22:00] VITALS: BP 125/78; PULSE 80; RESP 20; TEMP 36.8; O2SAT 98
== END 2021-06-26 22:05 | disposition home or self-care (01) ==
PROVIDERS: Emergency Medicine; Emergency Provider Emergency Medicine
DX: R07.89 Other chest pain (principal)
CPT/HCPCS: 36415; 71045; 80053; 84484; 85025; 93005; 96375; 99282

== ENCOUNTER 2021-10-29 07:05 | Emergency (ER) | payer OTHER, SELFPAY ==
[2021-10-29] VITALS (8 sets, daily range): BP systolic 140–174; BP diastolic 88–116; PULSE 74–136; RESP 18–20; TEMP 36.9; O2SAT 98–99; BMI 24.4
--- NOTE | 2021-10-29 07:19 | CT_ITS ---
FINAL REPORT CLINICAL HISTORY: abd pain, vomiting COMPARISON: February 03, 2016 FINDINGS: CT OF THE ABDOMEN AND PELVIS WITH CONTRAST Axial CT images of the abdomen and pelvis were obtained after the administration of intravenous contrast. Coronal reformatted images were also obtained and reviewed.This study was performed with techniques to keep radiation doses as low as reasonably achievable (ALARA). Individualized dose reduction techniques using automated exposure control or adjustment of mA and/or kV according to the patient's size were employed. Abdomen: There is a calcified granuloma in the left lung base. The heart is normal in size. The liver is mildly fatty infiltrated. There is no evidence of mass or biliary ductal dilatation. There are questionable stones or sludge in the gallbladder. The spleen is unremarkable. No adrenal mass is present. The pancreas has an unremarkable appearance. The kidneys are normal, without evidence of mass or hydronephrosis. The aorta is normal in caliber. There is no free fluid or adenopathy. No mass or abnormal fluid collection is seen. There is mild wall thickening of the ascending colon and hepatic flexure of uncertain significance. Pelvis: The appendix is normal. The urinary bladder is unremarkable. No inflammatory process is seen. There is no evidence of mass or adenopathy. There is no evidence of bowel obstruction. IMPRESSION: Questionable stones or sludge in the gallbladder. Mild wall thickening of the ascending colon and hepatic flexure of uncertain significance may represent mild colitis. Mild fatty infiltration of the liver. Reviewed, Interpreted and Dictated by Bolivar Ojeda III, MD Transcribed by Heladio Miner Authenticated and [facility]
[2021-10-29 07:27] LABS: Microscopic, Urine URINE MICROSCOPIC (MICROSCOPIC)
[2021-10-29 07:28] LABS: Appearance,Urine CLEAR (Clear); Bilirubin,Urine Negative (Negative); Blood, Urine Negative (Negative); Color,Urine YELLOW (Yellow); Glucose,Urine (UA) Negative (Negative); Ketones,Urine Negative (Negative); Leukocyte Esterase,Urine Negative (Negative); Nitrate,Urine Negative (Negative); Protein,Urine Negative (Negative); Urobilinogen,Urine 0.2 EU/dl (0.2)
[2021-10-29 07:30] LABS: Chloride 100 mmol/L (98-107)
[2021-10-29 07:31] LABS: Potassium 3.8 mmoL/L (3.5-5.1); Sodium 135 mmol/L (136-145)
--- NOTE | 2021-10-29 07:31 | HMH.EDNVD ---
ED Disposition Clinical Impression: Colitis Abdominal pain Qualifiers: Abdominal location: upper abdomen, unspecified Qualified Code(s): R10.10 - Upper abdominal pain, unspecified Disposition: Home, Self-Care Condition on Discharge: Good Instructions: DI for Colitis Additional Instructions: fluids and trial of meds Prescriptions: Dicyclomine HCl [Bentyl 10mg capsule] 10 mg PO TID #21 cap Transmission Status: Pending to [facility] levoFLOXacin [Levaquin 500mg tab] 500 mg PO DAILY #7 tab Transmission Status: Pending to [facility] metroNIDAZOLE [metroNIDAZOLE 500mg Tablet] 500 mg PO TID #30 tab Transmission Status: Pending to [facility] Referrals: Provider,Referral, MD [Primary Care Provider] - - Critical Care Critical Care Time: No Attestation: On 10/29/21, the high probability of a clinically significant, sudden or life threatening deterioration of the following system(s) required my full and direct attention, intervention and personal management. The time I documented below is in addition to time spent performing reported procedures but includes the following listed in this critical care notation. Medical Decision Making - Medical Records Medical records reviewed: Yes: I reviewed the patient's medical records. - Parviz Inquiry Pt receiving controlled substance: No Vital Signs: 10/29/21 07:06 10/29/21 07:24 10/29/21 07:30 Temperature 98.4 F Temperature Source Oral Pulse Rate 89 86 Pulse Rate [Radial] 136 H Respiratory Rate 20 Blood Pressure 174/104 H 167/104 H Blood Pressure [Right Arm] 173/116 H Blood Pressure Mean 125 Blood Pressure Mean [Right Arm] 135 Blood Pressure Position Sitting Blood Pressure Position [Right Arm] Sitting 02 Sat by Pulse Oximetry 98 98 Oxygen Delivery Method Room Air Room Air 10/29/21 08:00 10/29/21 08:30 10/29/21 09:00 Temperature Temperature Source Pulse Rate 78 81 74 Pulse Rate [Radial] Respiratory Rate Blood Pressure 140/100 H 144/101 H 149/98 H Blood Pressure [Right Arm] Blood Pressure Mean 113 118 113 Blood Pressure Mean [Right Arm] Blood Pressure Position Blood Pressure Position [Right Arm] 02 Sat by Pulse Oximetry 99 99 99 Oxygen Delivery Method Room Air Room Air Room Air 10/29/21 10:47 Temperature Temperature Source Pulse Rate 78 Pulse Rate [Radial] Respiratory Rate Blood Pressure 140/88 Blood Pressure [Right Arm] Blood Pressure Mean 106 Blood Pressure Mean [Right Arm] Blood Pressure Position Blood Pressure Position [Right Arm] 02 Sat by Pulse Oximetry 99 Oxygen Delivery Method - Lab Data Lab results reviewed: Yes: I reviewed the patient's lab results. Lab Results 10/29/21 07:10: Urine Color Yellow, Urine Appearance Clear, Urine pH 6.0, Ur Specific [place] 1.020, Urine Protein Negative, Urine Glucose (UA) Negative, Urine Ketones Negative, Urine Blood Negative, Urine Nitrate Negative, Urine Bilirubin Negative, Urine Urobilinogen 0.2, Ur Leukocyte Esterase Negative, Urine RBC None, Urine WBC None, Ur Squamous Epith Cells Occasional, Urine Bacteria Trace 10/29/21 07:20: WBC 6.2, RBC 5.19, Hgb 16.5, Hct 48.0, MCV 92.6, MCH 31.7 H, MCHC 34.2, RDW 13.0, Plt Count 228, MPV 9.1, Neut % (Auto) 47.8, Lymph % (Auto) 42.2, [place] % (Auto) 7.4, Eos % (Auto) 1.4, Baso % (Auto) 1.2, Neut # (Auto) 2.9, Lymph # (Auto) 2.6, [place] # (Auto) 0.5, Eos # (Auto) 0.1, Baso # (Auto) 0.1 10/29/21 07:20: Sodium 135 L, Potassium 3.8, Chloride 100, Carbon Dioxide 26, Anion Gap 12.8, BUN 10, Creatinine 1.00, Estimated Creat Clear 132, Estimated GFR 90, Est GFR ( Amer) 108, Glucose 108 H, Calcium 9.7, Total Bilirubin 1.2, AST 123 H, ALT 81 H, Alkaline Phosphatase 83, Total Protein 7.7, Albumin 4.7, Globulin 3.0, Albumin/Globulin Ratio 1.6, Lipase 49 Result diagrams: 10/29/21 07:20 10/29/21 07:20 Orders (Tests/Meds): ED MEDICATIONS Generic Name Dose Route Start Last Admin
[2021-10-29 07:32] LABS: Basophils # 0.1 K/mm3 (0-0.2); Basophils % 1.2 % (0.1-2.0); Eosinophils # 0.1 K/mm3 (0.0-0.4); Eosinophils % 1.4 % (0.1-12.0); Hemoglobin 16.5 g/dL (14.1-18.0); Lymphocytes # 2.6 K/mm3 (0.7-4.5); Lymphocytes % 42.2 % (10-50); Mean Corpuscular HGB Conc 34.2 g/dL (31.8-35.4); Mean Corpuscular Hemoglobin 31.7 pg (27.0-31.2); Mean Corpuscular Volume 92.6 fl (80-94); Mean Platelet Volume 9.1 fl (7.4-10.4); Monocytes # 0.5 K/mm3 (0.1-1.0); Monocytes % 7.4 % (1.7-9.3); Neutrophils # 2.9 K/mm3 (1.8-7.8); Neutrophils % 47.8 % (37.0-80.0); Platelet Count 228 K/mm3 (142-424); Red Blood Count 5.19 M/mm3 (4.60-6.20); White Blood Count 6.2 K/mm3 (4.8-10.8)
[2021-10-29 07:33] LABS: Alanine Aminotransferase 81 U/L (12-78); Alkaline Phosphatase 83 U/L (38-126); Anion Gap 12.8 mEq/L (5-15); Aspartate Amino Transferase 123 U/L (17-59); Bilirubin,Total 1.2 mg/dl (0.2-1.3); Blood Urea Nitrogen 10 mg/dl (9-20); Carbon Dioxide 26 mmol/L (22.0-30.0); Creatinine Clearance Estimated 132 mL/min (50-200); Estimated Glomerular Filt Rate 90 ml/min (>60); GFR (African American) 108 ML/MIN (>60); Lipase 49 U/L (23-300)
[2021-10-29 07:34] LABS: Albumin Level 4.7 g/dl (3.5-5.0); Albumin/Globulin Ratio 1.6 (1.1-1.8); Calcium 9.7 mg/dl (8.4-10.2); Glucose 108 mg/dl (74-100); Total Protein,Serum 7.7 g/dl (6.3-8.2)
[2021-10-29 07:41] LABS: Bacteria,Urine Trace /lpf; Squamous Epithelial Cell,Urine Occasional #/hpf (0-5)
--- NOTE | 2021-10-29 07:43 | PC.NURSE ---
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
--- NOTE | 2021-10-29 07:47 | PC.NURSE ---
to ct per wheelchair
--- NOTE | 2021-10-29 08:03 | PC.NURSE ---
checked on pt at this time, pt states no needs at this time.
--- NOTE | 2021-10-29 08:31 | PC.NURSE ---
pt states improvement in pain. updated on plan of care
--- NOTE | 2021-10-29 09:28 | US_ITS ---
FINAL REPORT CLINICAL HISTORY: pain FINDINGS: Sonographic images of the right upper quadrant were obtained. The pancreas is obscured.The liver has increased echogenicity.The gallbladder appears normal without evidence of gallstones.There is no evidence of biliary ductal dilatation.The common duct measures 3 mm. Limited images of the right kidney are unremarkable. IMPRESSION: Fatty liver. Reviewed, Interpreted and Dictated by Bolivar Ojeda III, MD Transcribed by Heladio Miner Authenticated and [facility]
--- NOTE | 2021-10-29 09:50 | PC.NURSE ---
ultrasound staff at
--- NOTE | 2021-10-29 09:55 | PC.NURSE ---
waiting financial institution treasurer back from dr. mcbride from office. Rad staff stated gallbladder u/s was negative was calling to update dr. mcbride
--- NOTE | 2021-10-29 10:47 | PC.NURSE ---
Pt updated on POC, denies any pain at this time
--- NOTE | 2021-10-29 11:22 | PC.NURSE ---
Talked with Dr. Kelly, pt needs to fu with primary care doctor, list giving to pt for physicians
[2021-10-29 12:11] LABS: C-Reactive Protein < 0.3 mg/L (0-4)
[2021-10-29 12:14] LABS: Erythrocyte Sedimentation Rate 4 mm/hr (0-15)
== END 2021-10-29 11:44 | disposition home or self-care (01) ==
PROVIDERS: Emergency Provider Emergency Medicine
DX: R10.10 Upper abdominal pain, unspecified (principal); R11.2 Nausea with vomiting, unspecified; Z79.82 Long term (current) use of aspirin; Z79.899 Other long term (current) drug therapy
CPT/HCPCS: 74177; 76705; 80053; 81001; 83690; 85025; 85651; 86140; 96361; 96374; 96375; 99285; J2405; Q9967

== ENCOUNTER 2022-01-16 08:44 | Observation (INO) | payer OTHER, SELFPAY ==
[2022-01-16] VITALS (16 sets, daily range): BP systolic 117–175; BP diastolic 82–101; PULSE 101–134; RESP 14–18; TEMP -7.7–37.1; O2SAT 96–100; BMI 23.7; BMI 23.1
[2022-01-16 09:14] LABS: Microscopic, Urine URINE MICROSCOPIC (MICROSCOPIC)
--- NOTE | 2022-01-16 09:15 | HMH.EDGENADL ---
Discharge Plan Disposition Patient Disposition: Admitted As Inpatient Condition: Good Chief Complaint: PAIN Prescriptions Prescriptions: No Action polyethylene glycol 3350 17 GM powder in packet 17 gm PO DAILY Qty: 30 0RF hydrocortisone 28.35 GM cream with perineal applicator 1 applicatio TP BID Qty: 1 0RF metronidazole 500 MG tablet 500 mg PO TID Qty: 30 0RF levofloxacin 500 MG tablet 500 mg PO DAILY Qty: 7 0RF dicyclomine 10 MG capsule 10 mg PO TID Qty: 21 0RF Referrals Follow up/Referrals: Jignesh Granados MD [Primary Care Provider] - See instructions Clinical Impressions Clinical Impression: Acute alcoholic pancreatitis, Abdominal pain Discharge ED Provider: Ernst Candelaria General Adult HPI General Chief complaint: PAIN Stated complaint: abd pain,vomiting,headache Time Seen by Provider: 01/16/22 09:00 Mode of Arrival: Ambulatory Source of Information: Patient Limitations: No Limitations Description of Symptoms (Recalled from ER Triage Doc. by RN): pt to ed c/o epigastric pain that radiates to bilateral flank. pt reports thursday he had diarrhea and one episode of emesis. pt denies nausea on arrival to ed. pt reports standing makes the pain betterand movement makes the pain worse. History of Present Illness HPI narrative: This is a 26-year-old male with history of colitis who is presenting with acute onset abdominal pain. Patient states that 3 days prior to arrival, he began having abdominal pain while he was sitting on the couch. It was mild, burning at first, but has progressed to 10 out of 10, stabbing/burning pain that radiates to his back and bilateral flanks. He is presenting to the ED today because he has had inability to tolerate any food or drink by mouth. Denies bilious or bloody vomiting. Has associated dark urine without hematuria or dysuria. Patient has not had diarrhea, fevers, chills, constipation, blood in his stool, cough, shortness of breath, chest pain, recent travel, or any other concerning history. Related Data Previous Rx's Medication Instructions Recorded hydrocortisone 2.5 % topical cream 1 applicatio TP BID #1 tube 05/08/20 with perineal applicator polyethylene glycol 3350 17 gram 17 gm PO DAILY #30 packets 05/08/20 oral powder packet dicyclomine 10 mg capsule 10 mg PO TID #21 caps 10/29/21 levofloxacin 500 mg tablet 500 mg PO DAILY #7 tabs 10/29/21 metronidazole 500 mg tablet 500 mg PO TID #30 tabs 10/29/21 Allergies Allergy/AdvReac Type Severity Reaction Status Date / Time No Known Allergies Allergy Verified 11/08/19 13:17 [facility] Social History Smoking Status: Never smoker alcohol intake: never current occupational status: other Travel in the last 8 weeks: None ROS Obtained: Yes All systems reviewed & no additional complaints except as documented Physical Exam General General appearance: alert and in no apparent distress Head Head exam: atraumatic, normocephalic and normal inspection Eye Eye exam: Present normal appearance, PERRL and EOMI ENT ENT exam: Present normal exam, normal oropharynx, mucous membranes moist, TM's normal bilaterally and normal external ear exam Neck Neck exam: Present normal inspection, full ROM and trachea midline; Absent meningismus or lymphadenopathy Chest Chest inspection: Present normal inspection and symmetric chest wall rise; Absent tenderness Respiratory Respiratory exam: Present normal lung sounds bilaterally; Absent respiratory distress Cardiovascular Cardiovascular exam: Present regular rate and normal rhythm; Absent JVD Abdominal Exam Abdominal exam: Present soft, tenderness, guarding and normal bowel sounds; Absent distention, rebound or rigidity Abdominal tenderness: Present epigastrium and moderate Extremities Exam Extremities exam: Present normal inspection, full ROM and normal capillary refill; Absent calf tenderness Back Exam Back exam: Present normal inspection; Absent t
--- NOTE | 2022-01-16 09:16 | CT_ITS ---
FINAL REPORT CLINICAL HISTORY: severe epigastric and periumbillical pain COMPARISON: October 29, 2021 FINDINGS: CT OF THE ABDOMEN AND PELVIS WITH CONTRAST Axial CT images of the abdomen and pelvis were obtained after the administration of contrast. Coronal reformatted images were also obtained and reviewed.This study was performed with techniques to keep radiation doses as low as reasonably achievable (ALARA). Individualized dose reduction techniques using automated exposure control or adjustment of mA and/or kV according to the patient's size were employed. Abdomen: The lung bases are clear. The heart is normal in size. The liver is fatty infiltrated. The gallbladder is present. There is peripancreatic fat stranding and fluid which extends into the anterior para renal space, left greater than right. Findings are consistent with acute pancreatitis. There is no evidence of pancreatic necrosis, abscess, or pseudocyst. No adrenal mass is present. The spleen is normal size. The kidneys are normal, without evidence of mass or hydronephrosis. The aorta is normal in caliber. There are areas of wall thickening of the colon that is likely secondary inflammatory change. No mass or abnormal fluid collection is seen. Pelvis: The appendix is normal The urinary bladder is unremarkable. No inflammatory process is seen. There is no evidence of mass or adenopathy. There is no evidence of bowel obstruction. IMPRESSION: Acute pancreatitis without pancreatic necrosis, abscess or pseudocyst. Reviewed, Interpreted and Dictated by Bolivar Ojeda III, MD Transcribed by Heladio Miner Authenticated and [facility]
[2022-01-16 09:26] LABS: Basophils % 0.3 % (0.1-2.0); Eosinophils # 0.1 K/mm3 (0.0-0.4); Eosinophils % 0.7 % (0.1-12.0); Hematocrit 48.2 % (42.0-52.0); Hemoglobin 15.9 g/dL (14.1-18.0); Lymphocytes # 1.2 K/mm3 (0.7-4.5); Lymphocytes % 9.8 % (10-50); Mean Corpuscular Hemoglobin 32.2 pg (27.0-31.2); Mean Corpuscular Volume 97.5 fl (80-94); Mean Platelet Volume 10.3 fl (7.4-10.4); Monocytes # 0.5 K/mm3 (0.1-1.0); Monocytes % 3.6 % (1.7-9.3); Neutrophils # 10.7 K/mm3 (1.8-7.8); Neutrophils % 85.6 % (37.0-80.0); Platelet Count 162 K/mm3 (142-424); Red Blood Count 4.95 M/mm3 (4.60-6.20); Red Cell Distribution Width 14.4 % (11.5-17.5); White Blood Count 12.5 K/mm3 (4.8-10.8)
[2022-01-16 09:27] LABS: MANUAL DIFFERENTIAL MANUAL DIFFERENTIAL (MANUAL DIFF)
[2022-01-16 09:29] LABS: Appearance,Urine CLEAR (Clear); Bilirubin,Urine Negative (Negative); Blood, Urine TRACE-I (Negative); Color,Urine YELLOW (Yellow); Glucose,Urine (UA) Negative (Negative); Ketones,Urine Negative (Negative); Leukocyte Esterase,Urine Negative (Negative); Nitrate,Urine Negative (Negative); Protein,Urine 1+ (Negative); Specific Gravity, Urine 1.015 (1.005-1.030); Urobilinogen,Urine 0.2 EU/dl (0.2)
[2022-01-16 09:46] LABS: Alanine Aminotransferase 132 U/L (12-78); Albumin Level 3.8 g/dl (3.5-5.0); Albumin/Globulin Ratio 1.1 (1.1-1.8); Alkaline Phosphatase 179 U/L (38-126); Anion Gap 18.6 mEq/L (5-15); Aspartate Amino Transferase 122 U/L (17-59); Bilirubin,Total 1.9 mg/dl (0.2-1.3); Blood Urea Nitrogen 5 mg/dl (9-20); Calcium 8.8 mg/dl (8.4-10.2); Carbon Dioxide 21 mmol/L (22.0-30.0); Chloride 95 mmol/L (98-107); Creatinine Clearance Estimated 128 mL/min (50-200); Estimated Glomerular Filt Rate 90 ml/min (>60); GFR (African American) 108 ML/MIN (>60); Globulin 3.6 g/dL (1.3-3.2); Glucose 143 mg/dl (74-100); Lipase 339 U/L (23-300); Potassium 3.6 mmoL/L (3.5-5.1); Sodium 131 mmol/L (136-145); Total Protein,Serum 7.4 g/dl (6.3-8.2)
[2022-01-16 09:51] LABS: Bacteria,Urine Trace /lpf; RBC,Urine Occasional #/hpf (0-3); Squamous Epithelial Cell,Urine Occasional #/hpf (0-5)
[2022-01-16 10:00] LABS: Lymphocytes % 12 % (10-50); Monocytes % 2 % (2-9); Neutrophils % 86 % (42-76); Platelet Estimate Normal; RBC Morphology Normal; Total Cells Counted 100
--- NOTE | 2022-01-16 10:30 | PC.NURSE ---
PT AMBULATED TO BR
--- NOTE | 2022-01-16 10:36 | PC.NURSE ---
ALEAH MEDINA SPEAKING WITH RADIOLOGIST
--- NOTE | 2022-01-16 10:45 | PC.NURSE ---
LAB CALLED FOR ADDITIONAL LAB TEST
--- NOTE | 2022-01-16 10:58 | PC.NURSE ---
DR CHAMBERS PAGED FOR SERVICE PATIENT
--- NOTE | 2022-01-16 11:07 | PC.NURSE ---
CARE MANAGEMENT NOTIFIED OF ADMISSION
[2022-01-16 11:11] LABS: Triglycerides 2488 mg/dl (30-150)
[2022-01-16 11:31] LABS: Coronavirus 19, PCR Not Detected (NotDetected); Influenza A, PCR Not Detected (NotDetected); Influenza B, PCR Not Detected (NotDetected)
--- NOTE | 2022-01-16 11:38 | HMH.EDGENADL ---
Discharge Plan Disposition Patient Disposition: Admitted As Inpatient Condition: Good Clinical Impressions Clinical Impression: Acute alcoholic pancreatitis Qualifiers: Acute pancreatitis complication: no infection or necrosis Qualified Code(s): K85.20 - Alcohol induced acute pancreatitis without necrosis or infection Abdominal pain Qualifiers: Abdominal location: epigastric Qualified Code(s): R10.13 - Epigastric pain Discharge ED Provider: Ernst Candelaria General Adult HPI General Chief complaint: PAIN Stated complaint: abd pain,vomiting,headache Time Seen by Provider: 01/16/22 09:00 Mode of Arrival: Ambulatory Source of Information: Patient Limitations: No Limitations Description of Symptoms (Recalled from ER Triage Doc. by RN): pt to ed c/o epigastric pain that radiates to bilateral flank. pt reports thursday he had diarrhea and one episode of emesis. pt denies nausea on arrival to ed. pt reports standing makes the pain betterand movement makes the pain worse. Related Data Home Medications Medication Instructions Recorded Confirmed No Known Home Medications 01/16/22 01/16/22 Allergies Allergy/AdvReac Type Severity Reaction Status Date / Time No Known Allergies Allergy Verified 11/08/19 13:17 [facility] Social History (Updated 01/16/22 @ 13:37 by Stephy Stevenson RN) Smoking Status: Current some day smoker tobacco type: cigarettes and e-cigarettes alcohol intake: current current occupational status: employed and other Travel in the last 8 weeks: None household members: significant other housing: apartment lives independently: Yes marital status: single education level: high school service: No long-term: No well-balanced diet: daily or most days caffeine: No ROS Obtained: Yes All systems reviewed & no additional complaints except as documented Physical Exam General General appearance: alert and in no apparent distress Medical Decision Making Vital Signs: 01/16/22 09:04 01/16/22 09:00 01/16/22 09:31 Temperature 97.9 F Temperature Source Oral Pulse Rate 121 H 106 H Pulse Rate [Left Radial] 134 H Respiratory Rate 18 18 18 Blood Pressure 161/100 H 175/98 H Blood Pressure [Right Arm] 136/101 H Blood Pressure Mean 123 121 Blood Pressure Mean [Right Arm] 112 Blood Pressure Source [Right Arm] Blood Pressure Position [Right Arm] 02 Sat by Pulse Oximetry 96 98 100 Oxygen Delivery Method 01/16/22 10:00 01/16/22 10:35 01/16/22 11:00 Temperature Temperature Source Pulse Rate 108 H 107 H 114 H Pulse Rate [Left Radial] Respiratory Rate 18 18 Blood Pressure 160/94 H 161/98 H 157/100 H Blood Pressure [Right Arm] Blood Pressure Mean 116 116 107 Blood Pressure Mean [Right Arm] Blood Pressure Source [Right Arm] Blood Pressure Position [Right Arm] 02 Sat by Pulse Oximetry 99 100 98 Oxygen Delivery Method 01/16/22 11:30 01/16/22 12:00 01/16/22 13:13 Temperature 98.5 F Temperature Source Oral Pulse Rate 110 H 104 H Pulse Rate [Left Radial] 111 H Respiratory Rate 18 18 16 Blood Pressure 151/91 H 155/98 H Blood Pressure [Right Arm] 123/93 H Blood Pressure Mean 106 106 Blood Pressure Mean [Right Arm] 103 Blood Pressure Source [Right Arm] Automatic Cuff Blood Pressure Position [Right Arm] Supine 02 Sat by Pulse Oximetry 98 98 98 Oxygen Delivery Method Room Air 01/16/22 12:30 01/16/22 13:00 01/16/22 13:07 Temperature Temperature Source Pulse Rate 104 H 101 H 104 H Pulse Rate [Left Radial] Respiratory Rate 18 18 18 Blood Pressure 169/94 H 143/94 H 123/93 H Blood Pressure [Right Arm] Blood Pressure Mean 112 107 103 Blood Pressure Mean [Right Arm] Blood Pressure Source [Right Arm] Blood Pressure Position [Right Arm] 02 Sat by Pulse Oximetry 98 98 99 Oxygen Delivery Method Lab Data Lab Results 01/16/22 08:45: Urine Color Yellow, Urine Appearance
--- NOTE | 2022-01-16 13:20 | PC.NURSE ---
patient arrived to floor from ED in wheelchair at 13:11
--- NOTE | 2022-01-16 14:41 | P.CONPHA_ITS ---
[facility] Pharmacy VTE Monitoring Patient Demographics Admission date: 01/16/22 Report Date: 01/16/22 Time: 14:42 Patient Allergies No Known Allergies Allergy (Verified 11/08/19 13:17) Height: 1.85 m Weight: 79.605 kg Current Active Problems (Updated 01/16/22 @ 11:13 by Ernst Candelaria MD) Abdominal pain (Acute) Acute alcoholic pancreatitis (Acute) VTE Risk Labs: VTE Related Lab Results Hgb 15.9 g/dL (14.1-18.0) 01/16/22 09:00 Hct 48.2 % (42.0-52.0) 01/16/22 09:00 Plt Count 162 K/mm3 (142-424) 01/16/22 09:00 BUN 5 mg/dl (9-20) L 01/16/22 09:00 Creatinine 1.00 mg/dl (0.66-1.25) 01/16/22 09:00 Estimated Creat Clear 128 mL/min (50-200) 01/16/22 09:00 VTE Risk Level: Very Low Risk Clinical Trial Participant: No Prophylaxis VTE Prophylaxis Ordered?: Yes Types of VTE Prophylaxis: TEDS Knee High
--- NOTE | 2022-01-16 14:44 | P.CONPHA_ITS ---
[facility] Pharmacy VTE Monitoring Patient Demographics Admission date: 01/16/22 Report Date: 01/16/22 Time: 14:44 Patient Allergies No Known Allergies Allergy (Verified 11/08/19 13:17) Height: 1.85 m Weight: 79.605 kg Current Active Problems (Updated 01/16/22 @ 11:13 by Ernst Candelaria MD) Abdominal pain (Acute) Acute alcoholic pancreatitis (Acute) VTE Risk Labs: VTE Related Lab Results Hgb 15.9 g/dL (14.1-18.0) 01/16/22 09:00 Hct 48.2 % (42.0-52.0) 01/16/22 09:00 Plt Count 162 K/mm3 (142-424) 01/16/22 09:00 BUN 5 mg/dl (9-20) L 01/16/22 09:00 Creatinine 1.00 mg/dl (0.66-1.25) 01/16/22 09:00 Estimated Creat Clear 128 mL/min (50-200) 01/16/22 09:00 Was VTE Risk Assessment Performed: Yes VTE Risk Level: Very Low Risk Clinical Trial Participant: No Prophylaxis VTE Prophylaxis Ordered?: Yes Types of VTE Prophylaxis: TEDS Knee High Location of Applied Device: Bilateral Lower Extremeties
--- NOTE | 2022-01-16 16:00 | PC.NURSE ---
Patient VSS, pain level 11 states is better after receiving Protonix. Patient CIWA score <2, visitor at bedside and watching sports on TV. Shows no s/s of acute distress noted, bed is at lowest level for safety, call light within reach; will continue to monitor.
--- NOTE | 2022-01-16 20:48 | EXP.HP ---
History of Present Illness *Admission Date: 01/16/22 *Reason for visit:: Abdominal pain *History of present illness: Alfonso is a 26-year-old male who presented to the ER with a 3 day hx of abdominal pain.? Patient states that 3 days prior to arrival, he began having abdominal pain while he was sitting on the couch.? It was mild, burning at first, but has progressed to 10 out of 10, stabbing/burning pain that radiates to his back and bilateral flanks.? He has been unable tolerate any food or drink.? Denies bilious or bloody vomiting.? Has associated dark urine without hematuria or dysuria.? Patient has not had diarrhea, fevers, chills, constipation, blood in his stool, cough, shortness of breath, chest pain, recent travel, or any other concerning history. He does admit to drinking 1/2 to 1 pint of hard liquor per day. Report the findings consistent with pancreatitis. White count was mildly elevated as were his liver functions. Lipase elevated at 334. CT scan is consistent with acute pancreatitis with no necrosis or cystic formation. Also noted to have elevated triglycerides of 2200. [facility] Social History (Updated 01/16/22 @ 13:37 by Stephy Stevenson RN) Smoking Status: Current some day smoker tobacco type: cigarettes and e-cigarettes alcohol intake: current current occupational status: employed and other Travel in the last 8 weeks: None household members: significant other housing: apartment lives independently: Yes marital status: single education level: high school service: No chcf: No well-balanced diet: daily or most days caffeine: No Review of Systems Constitutional Constitutional: Reports system reviewed and no additional complaints, except as documented Eyes Eyes: Reports system reviewed and no additional complaints, except as documented ENT Ears, Nose, Mouth, and Throat: Reports system reviewed and no additional complaints, except as documented *Cardiovascular Cardiovascular: Denies chest pain and Denies dyspnea *Respiratory Respiratory: Denies chest congestion, Denies cough and Denies dyspnea *Gastrointestinal Gastrointestinal: Reports as per HPI *Genitourinary Genitourinary: Reports system reviewed and no additional complaints, except as documented *Musculoskeletal Musculoskeletal: Reports system reviewed and no additional complaints, except as documented *Neurologic Neurologic: Reports system reviewed and no additional complaints, except as documented Psychiatric Psychiatric: Reports system reviewed and no additional complaints, except as documented Meds Home Medications and Allergies Home Medications Medication Instructions Recorded Confirmed Type No Known Home Medications 01/16/22 01/16/22 History New Prescriptions to Start Prescriptions: Allergies Allergy/AdvReac Type Severity Reaction Status Date / Time No Known Allergies Allergy Verified 11/08/19 13:17 Exam Data for Last 24 hours Vital signs and Labs for Last 24 Hours: Temp Pulse Resp BP Pulse Ox 98.8 F 107 H 18 138/86 100 01/16/22 19:56 01/16/22 19:56 01/16/22 19:56 01/16/22 19:56 01/16/22 19:56 Laboratory Results - last 24 hr 01/16/22 08:45: Urine Color Yellow, Urine Appearance Clear, Urine pH 6.0, Ur Specific [place] 1.015, Urine Protein 1+, Urine Glucose (UA) Negative, Urine Ketones Negative, Urine Blood Trace-i, Urine Nitrate Negative, Urine Bilirubin Negative, Urine Urobilinogen 0.2, Ur Leukocyte Esterase Negative, Urine RBC Occasional, Urine WBC None, Ur Squamous Epith Cells Occasional, Urine Bacteria Trace 01/16/22 09:00: WBC 12.5 H, RBC 4.95, Hgb 15.9, Hct 48.2, MCV 97.5 H, MCH 32.2 H, MCHC 33.0, RDW 14.4, Plt Count 162, MPV 10.3, Neut % (Auto) 85.6 H, Lymph % (Auto) 9.8 L, [place] % (Auto) 3.6, Eos % (Auto) 0.7, Baso % (Auto) 0.3, Neut # (Auto) 10.7 H, Lymph # (Auto) 1.2, [place] # (Auto) 0.5, Eos # (Auto) 0.1, Baso # (Auto) 0.0, Total Counted 100, Neutrophils % (Manual) 86 H,
[2022-01-17 03:22] VITALS: BP 148/74; PULSE 106; RESP 18; TEMP 37.1; O2SAT 97
[2022-01-17 05:00] VITALS: BMI 23.3
--- NOTE | 2022-01-17 07:47 | PC.NURSE ---
Pt has remained a/ox4 t/o shift. Pt c/o LUQ abdominal pain 3x during shift rating it 10/10. Pt also c/o nausea 1x. PRN pain and nausea medication administered with favorable results. Around 0100, this RN entered room, pt states I think im going insane. When asked why he states he cannot stop moving his legs and every time he falls asleep, he jerks himself awake. With further assessment, pt also states he is a little nauseous, has a headache rating 4/10, and feels very anxious. Pt scored an 8 on CIWA scale. 1mg Ativan IV administered, pt states favorable results. Call light within reach.
[2022-01-17 07:49] LABS: Basophils % 0.4 % (0.1-2.0); Eosinophils # 0.1 K/mm3 (0.0-0.4); Eosinophils % 0.9 % (0.1-12.0); Hematocrit 43.1 % (42.0-52.0); Lymphocytes # 0.9 K/mm3 (0.7-4.5); Lymphocytes % 11.3 % (10-50); Mean Corpuscular HGB Conc 30.8 g/dL (31.8-35.4); Mean Corpuscular Hemoglobin 31.9 pg (27.0-31.2); Mean Corpuscular Volume 103.4 fl (80-94); Mean Platelet Volume 10.4 fl (7.4-10.4); Monocytes # 0.4 K/mm3 (0.1-1.0); Monocytes % 4.8 % (1.7-9.3); Neutrophils # 6.4 K/mm3 (1.8-7.8); Neutrophils % 82.5 % (37.0-80.0); Platelet Count 123 K/mm3 (142-424); Red Blood Count 4.17 M/mm3 (4.60-6.20); Red Cell Distribution Width 14.4 % (11.5-17.5); White Blood Count 7.8 K/mm3 (4.8-10.8)
[2022-01-17 08:00] VITALS: BP 141/86; PULSE 106; RESP 20; TEMP 37.9; O2SAT 96
[2022-01-17 08:15] LABS: Chloride 101 mmol/L (98-107); Potassium 3.9 mmoL/L (3.5-5.1); Sodium 135 mmol/L (136-145)
[2022-01-17 08:17] LABS: Alanine Aminotransferase 62 U/L (12-78); Aspartate Amino Transferase 77 U/L (17-59); Blood Urea Nitrogen 6 mg/dl (9-20); Creatinine Clearance Estimated 126 mL/min (50-200); Estimated Glomerular Filt Rate 90 ml/min (>60); GFR (African American) 108 ML/MIN (>60)
[2022-01-17 08:18] LABS: Albumin Level 3.2 g/dl (3.5-5.0); Albumin/Globulin Ratio 1.1 (1.1-1.8); Alkaline Phosphatase 130 U/L (38-126); Anion Gap 10.9 mEq/L (5-15); Bilirubin,Total 1.6 mg/dl (0.2-1.3); Calcium 8.3 mg/dl (8.4-10.2); Carbon Dioxide 27 mmol/L (22.0-30.0); Glucose 94 mg/dl (74-100); HDL Cholesterol 42 mg/dl (40-60); Lipase 83 U/L (23-300); Total Protein,Serum 6.2 g/dl (6.3-8.2)
--- NOTE | 2022-01-17 08:24 | EXP.PN ---
Subjective *Date: 01/17/22 *Time: 08:15 Interval history: Patient states he does not feel very well. He became anxious last night and received some Ativan which did help. He continues to have abdominal and left flank pain. He is voiding QS and urine is dark. Bowels have not moved. He would like to try some clear liquids. Lipase has normalized today. Triglycerides have improved to 480. Exam Data for Last 24 hours Vital signs and Labs for Last 24 Hours: Temp Pulse Resp BP Pulse Ox 98.7 F 106 H 18 148/74 H 97 01/17/22 03:22 01/17/22 03:22 01/17/22 03:22 01/17/22 03:22 01/17/22 03:22 Laboratory Results - last 24 hr 01/16/22 08:45: Urine Color Yellow, Urine Appearance Clear, Urine pH 6.0, Ur Specific [place] 1.015, Urine Protein 1+, Urine Glucose (UA) Negative, Urine Ketones Negative, Urine Blood Trace-i, Urine Nitrate Negative, Urine Bilirubin Negative, Urine Urobilinogen 0.2, Ur Leukocyte Esterase Negative, Urine RBC Occasional, Urine WBC None, Ur Squamous Epith Cells Occasional, Urine Bacteria Trace 01/16/22 09:00: WBC 12.5 H, RBC 4.95, Hgb 15.9, Hct 48.2, MCV 97.5 H, MCH 32.2 H, MCHC 33.0, RDW 14.4, Plt Count 162, MPV 10.3, Neut % (Auto) 85.6 H, Lymph % (Auto) 9.8 L, [place] % (Auto) 3.6, Eos % (Auto) 0.7, Baso % (Auto) 0.3, Neut # (Auto) 10.7 H, Lymph # (Auto) 1.2, [place] # (Auto) 0.5, Eos # (Auto) 0.1, Baso # (Auto) 0.0, Total Counted 100, Neutrophils % (Manual) 86 H, Lymphocytes % (Manual) 12, Monocytes % (Manual) 2, Platelet Estimate Normal, RBC Morphology Normal 01/16/22 09:00: Sodium 131 L, Potassium 3.6, Chloride 95 L, Carbon Dioxide 21 L, Anion Gap 18.6 H, BUN 5 L, Creatinine 1.00, Estimated Creat Clear 128, Estimated GFR 90, Est GFR ( Amer) 108, Glucose 143 H, Calcium 8.8, Total Bilirubin 1.9 H, AST 122 H, ALT 132 H, Alkaline Phosphatase 179 H, Total Protein 7.4, Albumin 3.8, Globulin 3.6 H, Albumin/Globulin Ratio 1.1, Lipase 339 H 01/16/22 09:00: Triglycerides 2488 H 01/16/22 09:50: Lactate 2.0 01/16/22 11:25: SARS-CoV-2 (PCR) Not detected, Influenza A Untype (PCR) Not detected, Influenza Type B (PCR) Not detected I & O for Last 24 hours: Intake & Output 01/14/22 01/15/22 01/16/22 01/17/22 11:59 11:59 11:59 11:59 Intake Total 2929 / 2929 Output Total 800 / 800 Balance 2128 / 2128 Weight 180 lb 176 lb 9 oz Constitutional Constitutional: no acute distress Comments: Seems to be uncomfortable with any movement. *Routine Respiratory Exam Respiratory: Present CTA bilaterally ( Anteriorly and posteriorly) *Routine Cardiovascular Exam Cardiovascular: Present RRR *Routine Abdominal Exam Abdominal: Present soft, normoactive bowel sounds ( hyperactive), tenderness, distended and guarding Comments: greater in the epigastrium and left upper quadrant and left flank. *Routine Extremities Exam Extremities: Present full ROM; Absent edema *Routine Neurological Exam Neurological: Present alert and oriented X3 Routine Psychiatric Exam Psychiatric: Present normal thought process, cooperative and anxious; Absent auditory hallucinations or visual hallucinations Assessment and Plan *Assessment and plan (1) Acute alcoholic pancreatitis: Status: Acute Qualifiers: Acute pancreatitis complication: no infection or necrosis Qualified Code(s): K85.20 - Alcohol induced acute pancreatitis without necrosis or infection Category: Medical Code(s): K85.20 - Alcohol induced acute pancreatitis without necrosis or infection (2) ETOH abuse: Status: Acute Category: Social Hx Code(s): F10.10 - Alcohol abuse, uncomplicated (3) Hypertriglyceridemia: Status: Acute Category: Medical Code(s): E78.1 - Pure hyperglyceridemia (4) Colitis: Status: Acute Category: Medical Code(s): K52.9 - Noninfective gastroenteritis and colitis, unspecified Plan Continue with IV fluids, Pain and nausea management, and Ativan for anxiety.
[2022-01-17 08:27] LABS: Chol/HDL Ratio 10.5 (1-3.5); Cholesterol 443 mg/dl (140-200); Triglycerides 480 mg/dl (30-150)
[2022-01-17 08:34] LABS: Hemoglobin 13.3 g/dL (14.1-18.0)
[2022-01-17 15:56] VITALS: BP 138/81; PULSE 108; RESP 18; TEMP 36.9; O2SAT 99
--- NOTE | 2022-01-17 17:00 | PC.NURSE ---
VSS, patient had 1 dose of Ativan for CIWA score >8 tolerated well; next CIWA <8. Patient had family at bedside this afternoon, took shower and tolerated clear liquid diet for supper. No acute distress noted at this time, call light within reach, bed at lowest level; will continue to monitor.
[2022-01-17 20:00] VITALS: BP 148/99; PULSE 112; RESP 16; TEMP 36.6; O2SAT 99
[2022-01-18 04:00] VITALS: BP 141/93; PULSE 91; RESP 16; TEMP 37.4; O2SAT 97
--- NOTE | 2022-01-18 04:26 | PC.NURSE ---
Pt is alert and oriented x4, pt has complained of pain 2 times this shift, treated prn per jul. Pt CIWA scored 8 on first score of shift, pt medicated prn per jul. Latest CIWA score of 1. Pt has slept most of the night. Pt is receiving NS @ 150. Pt O2 sat >90% on room air. Lung sounds clear, bowel sounds active, abdomen soft and nontender. Pt has had no complaints of nausea/vomiting this far in shift. Pt is independent in room. Call light in reach and functioning.
[2022-01-18 05:00] VITALS: BMI 24.3
[2022-01-18 07:55] LABS: Chloride 102 mmol/L (98-107); Potassium 4.2 mmoL/L (3.5-5.1); Sodium 136 mmol/L (136-145)
[2022-01-18 07:58] LABS: Alanine Aminotransferase 45 U/L (12-78); Alkaline Phosphatase 148 U/L (38-126); Anion Gap 9.2 mEq/L (5-15); Aspartate Amino Transferase 75 U/L (17-59); Bilirubin,Total 1.5 mg/dl (0.2-1.3); Blood Urea Nitrogen 4 mg/dl (9-20); Carbon Dioxide 29 mmol/L (22.0-30.0); Creatinine Clearance Estimated 163 mL/min (50-200); Estimated Glomerular Filt Rate 116 ml/min (>60); GFR (African American) 140 ML/MIN (>60)
[2022-01-18 07:59] LABS: Calcium 8.4 mg/dl (8.4-10.2); Glucose 102 mg/dl (74-100)
[2022-01-18 08:00] VITALS: BP 127/91; PULSE 103; RESP 16; TEMP 37.3; O2SAT 97; O2SAT 98
--- NOTE | 2022-01-18 09:08 | P.PN_ITS ---
Subjective *Date: 01/18/22 *Time: 08:35 Interval history: He slept better last night although states he had nightmares which she attributes to the IV Ativan. He required 1 dose of morphine through the night. Still complaining of pain mostly in left upper quadrant. He is tolerating the c lear liquids with no vomiting. No bowel movement Exam Data for Last 24 hours Vital signs and Labs for Last 24 Hours: Temp Pulse Resp BP Pulse Ox 99.2 F 103 H 16 127/91 H 98 01/18/22 08:00 01/18/22 08:00 01/18/22 08:00 01/18/22 08:00 01/18/22 08:00 Laboratory Results - last 24 hr 01/18/22 06:35: Sodium 136, Potassium 4.2, Chloride 102, Carbon Dioxide 29, Anion Gap 9.2, BUN 4 L D, Creatinine 0.80, Estimated Creat Clear 163, Estimated GFR 116, Est GFR ( Amer) 140 D, Glucose 102 H, Calcium 8.4, Total Bilirubin 1.5 H, AST 75 H, ALT 45 D, Alkaline Phosphatase 148 H, Total Protein 6.0 L, Albumin 3.0 L, Globulin 3.0, Albumin/Globulin Ratio 1.0 L I & O for Last 24 hours: Intake & Output 01/15/22 01/16/22 01/17/22 01/18/22 11:59 11:59 11:59 11:59 Intake Total 2929 / 2929 3179 / 3179 Output Total 800 / 800 1902 / 1902 Balance 2129 / 2129 1277 / 1277 Weight 180 lb 176 lb 9 oz 183 lb 3.2 oz Constitutional Comments: Awake and alert. Appears uncomfortable with movement. Lungs are clear. Abdomen is soft and nondistended. Normal bowel sounds. Moderate left upper quadrant tenderness with voluntary guarding Assessment and Plan *Assessment and plan (1) Acute alcoholic pancreatitis: Status: Acute Qualifiers: Acute pancreatitis complication: no infection or necrosis Qualified Code(s): K85.20 - Alcohol induced acute pancreatitis without necrosis or infection Category: Medical Code(s): K85.20 - Alcohol induced acute pancreatitis without necrosis or infection (2) ETOH abuse: Status: Acute Category: Social Hx Code(s): F10.10 - Alcohol abuse, uncomplicated (3) Hypertriglyceridemia: Status: Acute Category: Medical Code(s): E78.1 - Pure hyperglyceridemia Assessment and plan all Dx Assessment and Plan All Dx:: Slow clinical improvement but still having significant pain and requiring regular doses of IV morphine. He has tolerated the clear liquids and will advance to full liquid diet today. Possibly discharge home tomorrow
[2022-01-18 15:46] VITALS: BP 126/87; PULSE 98; RESP 14; TEMP 37.4; O2SAT 97
--- NOTE | 2022-01-18 18:51 | PC.NURSE ---
Patient VSS, still continues to have moderate to severe pain with burning; pain medication given per MAR and Mylanta. States chicken broth does not settle well due to spices. Call light in reach, bed at lowest level for safety; will continue to monitor.
[2022-01-18 20:00] VITALS: BP 118/89; PULSE 94; RESP 16; TEMP 38.3; O2SAT 97; O2SAT 98
--- NOTE | 2022-01-19 03:34 | PC.NURSE ---
Pt is alert and oriented x4, pt has complained of pain several times through the night. outbound call center representative MD notified of unrelieved pain, new order received for pain medicine, order read back and carried out with relief. Pt CIWA scores have been 3 and 1 this shift. Pt has not rested well through the night, has showered. Pt O2 sat >95% on room air. Lung sounds are clear, bowel sounds active, abdomen soft and nontender to touch. Pt independent in the room. Call light in reach and working.
[2022-01-19 03:59] VITALS: BP 102/66; PULSE 62; RESP 16; TEMP 37.1; O2SAT 95
[2022-01-19 05:00] VITALS: BMI 24.5
[2022-01-19 07:47] LABS: Alanine Aminotransferase 47 U/L (12-78); Albumin Level 2.8 g/dl (3.5-5.0); Alkaline Phosphatase 154 U/L (38-126); Anion Gap 5.7 mEq/L (5-15); Aspartate Amino Transferase 69 U/L (17-59); Bilirubin,Total 1.4 mg/dl (0.2-1.3); Blood Urea Nitrogen 2 mg/dl (9-20); Calcium 8.3 mg/dl (8.4-10.2); Carbon Dioxide 29 mmol/L (22.0-30.0); Chloride 105 mmol/L (98-107); Creatinine Clearance Estimated 220 mL/min (50-200); Estimated Glomerular Filt Rate 162 ml/min (>60); GFR (African American) 196 ML/MIN (>60); Globulin 2.8 g/dL (1.3-3.2); Glucose 93 mg/dl (74-100); Potassium 3.7 mmoL/L (3.5-5.1); Sodium 136 mmol/L (136-145); Total Protein,Serum 5.6 g/dl (6.3-8.2)
[2022-01-19 08:00] VITALS: BP 135/93; PULSE 86; RESP 16; TEMP 36.6; O2SAT 100
--- NOTE | 2022-01-19 09:28 | EXP.PN ---
Subjective *Date: 01/19/22 *Time: 09:28 Interval history: States his pain was worse throughout the day yesterday and through the night. May have been triggered by advancing his diet. Some nausea but no vomiting. States he is passing gas. No bowel movement Exam Data for Last 24 hours Vital signs and Labs for Last 24 Hours: Temp Pulse Resp BP Pulse Ox 97.9 F 86 16 135/93 H 100 01/19/22 08:00 01/19/22 08:00 01/19/22 08:00 01/19/22 08:00 01/19/22 08:00 Laboratory Results - last 24 hr 01/19/22 07:00: Sodium 136, Potassium 3.7, Chloride 105, Carbon Dioxide 29, Anion Gap 5.7, BUN 2 L D, Creatinine 0.60 L D, Estimated Creat Clear 220, Estimated GFR 162, Est GFR ( Amer) 196 D, Glucose 93, Calcium 8.3 L, Total Bilirubin 1.4 H, AST 69 H, ALT 47, Alkaline Phosphatase 154 H, Total Protein 5.6 L, Albumin 2.8 L, Globulin 2.8, Albumin/Globulin Ratio 1.0 L I & O for Last 24 hours: Intake & Output 01/16/22 01/17/22 01/18/22 01/19/22 11:59 11:59 11:59 11:59 Intake Total 2929 / 2929 3539 / 3539 3632 / 3632 Output Total 800 / 800 2602 / 2602 4200 / 4200 Balance 2129 / 2129 937 / 937 -568 / -568 Weight 180 lb 176 lb 9 oz 183 lb 3.2 oz 185 lb 6.4 oz Constitutional Comments: He appears uncomfortable but no acute distress. Lungs are clear. Abdomen is soft and nondistended with marked epigastric and left upper quadrant tenderness. Minimal bowel sounds. Assessment and Plan *Assessment and plan (1) Acute alcoholic pancreatitis: Status: Acute Qualifiers: Acute pancreatitis complication: no infection or necrosis Qualified Code(s): K85.20 - Alcohol induced acute pancreatitis without necrosis or infection Category: Medical Code(s): K85.20 - Alcohol induced acute pancreatitis without necrosis or infection (2) ETOH abuse: Status: Acute Category: Social Hx Code(s): F10.10 - Alcohol abuse, uncomplicated (3) Hypertriglyceridemia: Status: Acute Category: Medical Code(s): E78.1 - Pure hyperglyceridemia Assessment and plan all Dx Assessment and Plan All Dx:: Worsening pain likely from advancing his diet too early. We will back off to clear liquids today. Will order IV Phenergan to give along with his morphine dose to potentiate the effect. Labs continue to show steady improvement although alkaline phosphatase increased slightly.
[2022-01-19 15:48] VITALS: BP 131/80; PULSE 86; RESP 14; TEMP 36.8; O2SAT 98
--- NOTE | 2022-01-19 17:00 | PC.NURSE ---
Patient VSS, still continue to require coverage for pain and nausea. Patient shows no s/s of acute distress noted, call light within reach, bed at lowest level for safety; will continue to monitor.
[2022-01-19 20:00] VITALS: BP 134/98; PULSE 97; RESP 16; TEMP 36.6; O2SAT 98
[2022-01-20 04:00] VITALS: BP 132/68; PULSE 66; RESP 16; TEMP 36.9; O2SAT 96
[2022-01-20 05:00] VITALS: BMI 24.5
[2022-01-20 06:25] LABS: Basophils % 0.4 % (0.1-2.0); Eosinophils # 0.1 K/mm3 (0.0-0.4); Eosinophils % 0.9 % (0.1-12.0); Hematocrit 38.7 % (42.0-52.0); Hemoglobin 11.4 g/dL (14.1-18.0); Lymphocytes # 1.2 K/mm3 (0.7-4.5); Lymphocytes % 18.5 % (10-50); Mean Corpuscular HGB Conc 29.5 g/dL (31.8-35.4); Mean Corpuscular Hemoglobin 31.5 pg (27.0-31.2); Mean Corpuscular Volume 106.7 fl (80-94); Mean Platelet Volume 9.1 fl (7.4-10.4); Monocytes # 0.7 K/mm3 (0.1-1.0); Monocytes % 10.8 % (1.7-9.3); Neutrophils # 4.6 K/mm3 (1.8-7.8); Neutrophils % 69.4 % (37.0-80.0); Platelet Count 203 K/mm3 (142-424); Red Blood Count 3.62 M/mm3 (4.60-6.20); Red Cell Distribution Width 14.3 % (11.5-17.5); White Blood Count 6.6 K/mm3 (4.8-10.8)
[2022-01-20 06:33] LABS: Microscopic, Urine URINE MICROSCOPIC (MICROSCOPIC)
[2022-01-20 06:35] LABS: Appearance,Urine CLEAR (Clear); Bilirubin,Urine Negative (Negative); Blood, Urine Negative (Negative); Color,Urine YELLOW (Yellow); Glucose,Urine (UA) Negative (Negative); Ketones,Urine Negative (Negative); Leukocyte Esterase,Urine Negative (Negative); Nitrate,Urine Negative (Negative); PH,Urine 7.5 (5.0-8.5); Protein,Urine Negative (Negative); Specific Gravity, Urine 1.015 (1.005-1.030); Urobilinogen,Urine 0.2 EU/dl (0.2)
[2022-01-20 06:40] LABS: Alanine Aminotransferase 54 U/L (12-78); Albumin Level 3.1 g/dl (3.5-5.0); Alkaline Phosphatase 180 U/L (38-126); Anion Gap 7.8 mEq/L (5-15); Aspartate Amino Transferase 76 U/L (17-59); Bilirubin,Total 1.1 mg/dl (0.2-1.3); Blood Urea Nitrogen 3 mg/dl (9-20); Calcium 8.8 mg/dl (8.4-10.2); Carbon Dioxide 29 mmol/L (22.0-30.0); Chloride 105 mmol/L (98-107); Creatinine Clearance Estimated 220 mL/min (50-200); Estimated Glomerular Filt Rate 162 ml/min (>60); GFR (African American) 196 ML/MIN (>60); Globulin 3.2 g/dL (1.3-3.2); Glucose 95 mg/dl (74-100); Potassium 3.8 mmoL/L (3.5-5.1); Sodium 138 mmol/L (136-145); Total Protein,Serum 6.3 g/dl (6.3-8.2)
[2022-01-20 06:44] LABS: Amorphous Sediment,Urine Trace /lpf; Mucus,Urine Trace /lpf; Squamous Epithelial Cell,Urine Occasional #/hpf (0-5); WBC,Urine Occasional #/hpf (0-3)
--- NOTE | 2022-01-20 06:53 | PC.NURSE ---
Pt tolerated clear liquid well t/o night. Pt c/o pain 2x t/o shift, PRN Morphine administered per MAR with favorable results. Pt did c/o some anxiety t/o night and had moderate tremors. Ativan administered x1 with favorable results. Girlfriend at bedside. Call light within reach.
[2022-01-20 08:00] VITALS: BP 141/88; PULSE 77; RESP 16; TEMP 36.8; O2SAT 97
--- NOTE | 2022-01-20 09:48 | P.PN_ITS ---
Subjective *Date: 01/20/22 *Time: 09:48 Interval history: Patient progressing his diet to clear liquids, his pain has subjectively been a little better. Still requiring frequent doses of IV morphine. Some nausea but no vomiting. No bowel movement but passing gas. Exam Data for Last 24 hours Vital signs and Labs for Last 24 Hours: Temp Pulse Resp BP Pulse Ox 98.2 F 77 16 141/88 H 97 01/20/22 08:00 01/20/22 08:00 01/20/22 08:00 01/20/22 08:00 01/20/22 08:00 Laboratory Results - last 24 hr 01/20/22 00:49: Urine Color Yellow, Urine Appearance Clear, Urine pH 7.5, Ur Specific [place] 1.015, Urine Protein Negative, Urine Glucose (UA) Negative, Urine Ketones Negative, Urine Blood Negative, Urine Nitrate Negative, Urine Bilirubin Negative, Urine Urobilinogen 0.2, Ur Leukocyte Esterase Negative, Urine WBC Occasional, Ur Squamous Epith Cells Occasional, Amorphous Sediment Trace, Urine Mucus Trace 01/20/22 05:40: WBC 6.6, RBC 3.62 L, Hgb 11.4 L, Hct 38.7 L, MCV 106.7 H, MCH 31.5 H, MCHC 29.5 L, RDW 14.3, Plt Count 203 D, MPV 9.1, Neut % (Auto) 69.4, Lymph % (Auto) 18.5, [place] % (Auto) 10.8 H, Eos % (Auto) 0.9, Baso % (Auto) 0.4, Neut # (Auto) 4.6, Lymph # (Auto) 1.2, [place] # (Auto) 0.7, Eos # (Auto) 0.1, Baso # (Auto) 0.0 01/20/22 05:40: Sodium 138, Potassium 3.8, Chloride 105, Carbon Dioxide 29, Anion Gap 7.8, BUN 3 L D, Creatinine 0.60 L, Estimated Creat Clear 220, Estimated GFR 162, Est GFR ( Amer) 196, Glucose 95, Calcium 8.8, Total Bilirubin 1.1, AST 76 H, ALT 54, Alkaline Phosphatase 180 H, Total Protein 6.3, Albumin 3.1 L D, Globulin 3.2, Albumin/Globulin Ratio 1.0 L I & O for Last 24 hours: Intake & Output 09/02/22 09/03/22 09/04/22 09/05/22 11:59 11:59 11:59 11:59 Intake Total 2929 / 2929 3539 / 3539 3632 / 3632 3343 / 3343 Output Total 800 / 800 2602 / 2602 4200 / 4200 1225 / 1225 Balance 2128 / 2128 937 / 937 -568 / -568 2117 / 2117 Weight 176 lb 9 oz 183 lb 3.2 oz 185 lb 6.4 oz 185 lb 6.399 oz Constitutional Comments: He appears to feel a little better. Abdomen is soft and nondistended. Moderate epigastric and left upper quadrant tenderness with voluntary guarding. Bowel sounds present but diminished. Assessment and Plan *Assessment and plan (1) Acute alcoholic pancreatitis: Status: Acute Qualifiers: Acute pancreatitis complication: no infection or necrosis Qualified Code(s): K85.20 - Alcohol induced acute pancreatitis without necrosis or infection Category: Medical Code(s): K85.20 - Alcohol induced acute pancreatitis without necrosis or infection (2) ETOH abuse: Status: Acute Category: Social Hx Code(s): F10.10 - Alcohol abuse, uncomplicated (3) Hypertriglyceridemia: Status: Acute Category: Medical Code(s): E78.1 - Pure hyperglyceridemia Assessment and plan all Dx Assessment and Plan All Dx:: Subjectively feels a little better. Bilirubin is now normal but it is concerning that his alkaline phosphatase continues to increase. Will schedule for MRCP
--- NOTE | 2022-01-20 11:33 | DIET.NUTRFU ---
Admitted with Acute alcoholic pancreatitis secondary to EtOH. He does not trigger for nutritional consult. Diet was upgraded to clear liquids. Continue to advance as medically feasible to avoid wt loss. Continues on IVF and compazine. AST and alkaline phosphate elevated, most other labs improving. Will continue to monitor diet advancement and po intake.
[2022-01-20 15:59] VITALS: BP 152/98; PULSE 95; RESP 16; TEMP 37.2; O2SAT 99
--- NOTE | 2022-01-20 18:00 | PC.NURSE ---
Patient VSS, A&O x4, family came to visit. CIWA score >8 x 1 mostly for increased nausea, no vomiting note, pain medication has been administered per MAR every 4 hours. Patient did not like the way the [place] made him feel very cranky. Did recv v.o. from Dr. Yoon for Zofran 8mg IVP every 8 hours. No acute distress noted, call light within reach, bed at lowest level for safety; will continue to monitor.
[2022-01-20 20:00] VITALS: BP 136/96; PULSE 90; RESP 17; TEMP 37.3; O2SAT 99
[2022-01-21 04:00] VITALS: BP 135/75; PULSE 65; RESP 16; TEMP 37.1; O2SAT 98
[2022-01-21 04:34] VITALS: BMI 23.8
--- NOTE | 2022-01-21 05:01 | PC.NURSE ---
pt is alert and oriented X4. pt ambulates to and from bathroom independently. complaints of pain X1 this shift, given morphine per mar with satisfactory results. pt. has been NPO since midnight for upcoming ERCP today. pt had some tremors and anxiety, scoring 8 on CIWA, ativan was administered per mar. pt has rested well since then. CB in reach
[2022-01-21 07:14] LABS: Alanine Aminotransferase 52 U/L (12-78); Albumin Level 3.2 g/dl (3.5-5.0); Alkaline Phosphatase 171 U/L (38-126); Aspartate Amino Transferase 62 U/L (17-59); Bilirubin,Direct 0.8 mg/dl (0.0-0.4); Bilirubin,Indirect 0.2 mg/dL (0.0-0.9); Bilirubin,Unconjugated 0.2 mg/dL (0.0-1.1); Total Protein,Serum 6.3 g/dl (6.3-8.2)
[2022-01-21 08:00] VITALS: BP 145/75; PULSE 71; RESP 17; TEMP 36.7; O2SAT 98
--- NOTE | 2022-01-21 08:10 | MR_ITS ---
FINAL REPORT CLINICAL HISTORY: PANCREATITIS, ABD PAIN. COMPARISON: CT dated January 16, 2022 FINDINGS: Multiplanar MR imaging of the abdomen was performed using the MRCP protocol. 3-D images were also obtained and reviewed. No gallstones are seen within the gallbladder. There is no evidence of biliary ductal dilatation. No filling defect is seen within the biliary system to suggest a bile duct stone. There is no evidence of bile duct stricture. No abnormalities seen of the pancreatic duct. Review of the remainder of the abdomen reveals small right and small to moderate left pleural effusions at of increased in size since the prior CT. There is abnormal fluid in the anterior para renal spaces, left greater than right, partially surrounding the tail of the pancreas. Findings are similar to the prior CT and are consistent with acute pancreatitis. IMPRESSION: Acute pancreatitis. Left greater than right pleural effusions, increased from prior. Reviewed, Interpreted and Dictated by Bolivar Ojeda III, MD Transcribed by Heladio Miner Authenticated and [facility]
--- NOTE | 2022-01-21 08:51 | EXP.PN ---
Subjective *Date: 01/21/22 *Time: 08:25 Interval history: patient is n.p.o. for MRCP today. He states the pain is gradually improving but still requires medication. He is ambulated in the room. His bowels did move yesterday. He states they were quite difficult. He is voiding QS. Exam Data for Last 24 hours Vital signs and Labs for Last 24 Hours: Temp Pulse Resp BP Pulse Ox 98.0 F 71 17 145/75 H 98 01/21/22 08:00 01/21/22 08:00 01/21/22 08:00 01/21/22 08:00 01/21/22 08:00 Laboratory Results - last 24 hr 01/21/22 05:47: Total Bilirubin 1.0, Direct Bilirubin 0.8 H, Conjugated Bilirubin 0.0, Indirect Bilirubin 0.2, Unconjugated Bilirubin 0.2, AST 62 H, ALT 52, Alkaline Phosphatase 171 H, Total Protein 6.3, Albumin 3.2 L I & O for Last 24 hours: Intake & Output 01/18/22 01/19/22 01/20/22 01/21/22 11:59 11:59 11:59 11:59 Intake Total 3539 / 3539 3632 / 3632 3343 / 3343 4348 / 4348 Output Total 2602 / 2602 4200 / 4200 2525 / 2525 0 / 0 Balance 937 / 937 -568 / -568 818 / 818 4348 / 4348 Weight 183 lb 3.2 oz 185 lb 6.4 oz 185 lb 6.399 oz 180 lb Constitutional Constitutional: no acute distress Comments: appears comfortable *Routine Respiratory Exam Respiratory: Present CTA bilaterally ( anteriorly and posteriorly) *Routine Cardiovascular Exam Cardiovascular: Present RRR *Routine Abdominal Exam Abdominal: Present soft, normoactive bowel sounds and tenderness; Absent distended *Routine Extremities Exam Extremities: Absent edema or calf tenderness *Routine Neurological Exam Neurological: Present alert and oriented X3 Assessment and Plan *Assessment and plan (1) Acute alcoholic pancreatitis: Status: Acute Qualifiers: Acute pancreatitis complication: no infection or necrosis Qualified Code(s): K85.20 - Alcohol induced acute pancreatitis without necrosis or infection Category: Medical Code(s): K85.20 - Alcohol induced acute pancreatitis without necrosis or infection (2) ETOH abuse: Status: Acute Category: Social Hx Code(s): F10.10 - Alcohol abuse, uncomplicated (3) Hypertriglyceridemia: Status: Acute Category: Medical Code(s): E78.1 - Pure hyperglyceridemia Plan patient has made gradual improvement. Continues with some abdominal pain. We will do MRCP Today. Assessment and plan all Dx Assessment and Plan All Dx:: MRCP pending. Alk phos trending downward today. Decrease IVF.
--- NOTE | 2022-01-21 14:44 | PC.NURSE ---
rounded on patient. questions about labs and these results given to patient. no specific concerns. did request a change in diet, and primary nurse has call placed for md. states pain has remained consistent but he has tolerated his clears well. encouraged him to ring out with any needs or concerns.
[2022-01-21 16:00] VITALS: BP 143/80; PULSE 85; RESP 16; TEMP 37.1; O2SAT 97
--- NOTE | 2022-01-21 16:30 | PC.NURSE ---
Patient VSS, seems to have had better day, CIWA <8 x 4. Patient still c/o pain 11/24 medication seems to be given further apart; c/o increased nausea x 1 medication administered per JUL. Patient requested to have diet advanced, recvd v.o. from Dr. Sellers to advance diet to Full Liquid for Dinner. Patient shows no s/s of acute distress, call light within reach, bed at lowest level for safety; will continue to monitor.
[2022-01-21 20:00] VITALS: BP 144/96; PULSE 91; RESP 16; TEMP 36.6; O2SAT 100
[2022-01-22 04:00] VITALS: BP 123/80; PULSE 67; RESP 16; TEMP 36.6; O2SAT 98
[2022-01-22 05:00] VITALS: BMI 23.4
--- NOTE | 2022-01-22 05:12 | PC.NURSE ---
pt has complained of pain two times this shift and nausea once, was treated per JUL, CIWA score at 8 one time this shift and was treated per JUL, next CIWA score was 0, remains on room air
[2022-01-22 07:18] LABS: Alanine Aminotransferase 47 U/L (12-78); Alkaline Phosphatase 168 U/L (38-126); Aspartate Amino Transferase 55 U/L (17-59); Bilirubin,Direct 0.6 mg/dl (0.0-0.4); Bilirubin,Total 0.6 mg/dl (0.2-1.3); Bilirubin,Unconjugated 0.1 mg/dL (0.0-1.1); Total Protein,Serum 5.5 g/dl (6.3-8.2)
[2022-01-22 08:00] VITALS: BP 138/94; PULSE 74; RESP 16; TEMP 36.6; O2SAT 99
--- NOTE | 2022-01-22 08:20 | P.PN_ITS ---
Subjective *Date: 01/22/22 *Time: 13:28 Interval history: Patient states he is feeling a little bit better today. He did sleep well last night and has not had pain medication since midnight. He does have some epigastric abdominal discomfort this morning. He has not tried to eat any demond kfast. Medical Exam Vital signs and Labs for Last 24 Hours: Temp Pulse Resp BP Pulse Ox 98 F 67 16 123/80 98 01/22/22 04:00 01/22/22 04:00 01/22/22 04:00 01/22/22 04:00 01/22/22 04:00 Laboratory Results - last 24 hr 01/22/22 06:20: Total Bilirubin 0.6, Direct Bilirubin 0.6 H, Conjugated Bilirubin 0.0, Indirect Bilirubin 0.0, Unconjugated Bilirubin 0.1, AST 55, ALT 47, Alkaline Phosphatase 168 H, Total Protein 5.5 L, Albumin 3.0 L I & O for Labs for Last 24 Hours: Intake & Output 01/19/22 01/20/22 01/21/22 01/22/22 11:59 11:59 11:59 11:59 Intake Total 3632 / 3632 3343 / 3343 4348 / 4348 3220 / 3220 Output Total 4200 / 4200 2525 / 2525 0 / 0 500 / 500 Balance -568 / -568 818 / 818 4348 / 4348 2720 / 2720 Weight 185 lb 6.4 oz 185 lb 6.399 oz 180 lb 176 lb 12.8 oz Constitutional: no acute distress Respiratory: CTA bilaterally Cardiac: Reg Rate and Rhythm GI: soft, tenderness (epigastric area), guarding or rebound Extremities: tenderness or edema Assessment and Plan *Assessment and plan (1) Acute alcoholic pancreatitis: Status: Acute Qualifiers: Acute pancreatitis complication: no infection or necrosis Qualified Code(s): K85.20 - Alcohol induced acute pancreatitis without necrosis or infection Category: Medical Code(s): K85.20 - Alcohol induced acute pancreatitis without necrosis or infection (2) ETOH abuse: Status: Acute Category: Social Hx Code(s): F10.10 - Alcohol abuse, uncomplicated (3) Hypertriglyceridemia: Status: Acute Category: Medical Code(s): E78.1 - Pure hyperglyceridemia Plan Assessment and plan all Dx Assessment and Plan All Dx:: Abdominal MRI from yesterday continues to show changes of acute pancreatitis but no dilatation of the biliary or pancreatic ducts. No cysts or abscesses or necrosis.. The patient's bilirubin is decreasing and alk phos continues to trend down. Will discuss further care with Dr. Sellers. Patient seen and examined. Concur with above. He rested better overnight but still has pain this morning. We will try advancing his diet further today.
[2022-01-22 09:45] VITALS: BMI 23.4
--- NOTE | 2022-01-22 11:45 | PC.NURSE ---
I was notified by application development director that patient would like to advance his diet. I called Dr Sellers's office who stated that Dr Pete is delivery consultant for Dr Sellers today. I spoke with Dr Wilcox nurse and relayed patients request to advance diet. Awaiting call back at this time.
--- NOTE | 2022-01-22 14:46 | PC.NURSE ---
rounded on patient. no concerns or needs voiced. encouraged him to ring out as needed. patient is independent with call light within reach.
[2022-01-22 16:00] VITALS: BP 153/88; PULSE 78; RESP 16; TEMP 36.7; O2SAT 100
--- NOTE | 2022-01-22 16:53 | PC.NURSE ---
Pt is alert and oriented x4. He reports having some loose stools today. He requested immodium so Dr Sellers notified and immodium ordered prn. He also requested advancing his diet, bland diet ordered per Dr Sellers. PRN pain meds administered approx q4hrs for pt reports of pain. Zofran administered once for nausea. He reported relief on reassessments of both pain and nausea. He also reports having some anxiety about everyday life. He states he works 70 hours a week and just bought a house and is stressed about these things. He is currently resting in bed watching TV. Bed is locked and in the lowest position, call light is within reach.
[2022-01-22 18:58] LABS: Direct LDL Cholesterol 219 mg/dL (100-129)
[2022-01-22 20:00] VITALS: BP 122/76; PULSE 62; RESP 16; TEMP 36.6; O2SAT 99
[2022-01-23 04:00] VITALS: BP 119/80; PULSE 62; RESP 16; TEMP 36.6; O2SAT 100
--- NOTE | 2022-01-23 04:04 | PC.NURSE ---
Pt is alert and oriented x4, pt has been resting in the bed throughout the night. Pt has complained of pain one time, treated prn per jul. CIWA score of 0, then 8, treated with prn med per jul. Pt has had no other complaints this shift. Pt is independent in the room. Lung sounds clear, abdomen tender and soft, bowel sounds active. Pt remains on room air, O2 sat >90%. Call light in reach and functioning.
[2022-01-23 05:00] VITALS: BMI 23.3
[2022-01-23 08:00] VITALS: BP 140/100; PULSE 86; RESP 18; TEMP 36.7; O2SAT 100
[2022-01-23 08:07] VITALS: BP 138/85
--- NOTE | 2022-01-23 09:02 | EXP.ACUTE.PN ---
Subjective *Date: 01/23/22 *Time: 10:03 Interval history: Patient states he feels about the same today. He did tolerate food last night. He states the eggs this morning made him nauseated and he required some pain medication and Zofran. He is still having epigastric pain, but is anxious to go home as today is his birthday. He is also having diarrhea. Medical Exam Vital signs and Labs for Last 24 Hours: Temp Pulse Resp BP Pulse Ox 98.0 F 86 18 138/85 100 01/23/22 08:00 01/23/22 08:00 01/23/22 08:00 01/23/22 08:07 01/23/22 08:00 Laboratory Results - last 24 hr 01/17/22 07:40: LDL Cholesterol Direct 219 H I & O for Labs for Last 24 Hours: Intake & Output 01/20/22 01/21/22 01/22/22 01/23/22 11:59 11:59 11:59 11:59 Intake Total 3343 / 3343 4348 / 4348 3460 / 3460 3124 / 3124 Output Total 2525 / 2525 0 / 0 500 / 500 200 / 200 Balance 818 / 818 4348 / 4348 2960 / 2960 2924 / 2924 Weight 185 lb 6.399 oz 180 lb 176 lb 12.795 oz 176 lb 9.6 oz Constitutional: no acute distress Respiratory: CTA bilaterally Cardiac: Reg Rate and Rhythm GI: soft, tenderness (epigastric and LUQ), guarding, rebound and normal bowel sounds Assessment and Plan *Assessment and plan (1) Acute alcoholic pancreatitis: Status: Acute Qualifiers: Acute pancreatitis complication: no infection or necrosis Qualified Code(s): K85.20 - Alcohol induced acute pancreatitis without necrosis or infection Category: Medical Code(s): K85.20 - Alcohol induced acute pancreatitis without necrosis or infection (2) ETOH abuse: Status: Acute Category: Social Hx Code(s): F10.10 - Alcohol abuse, uncomplicated (3) Hypertriglyceridemia: Status: Acute Category: Medical Code(s): E78.1 - Pure hyperglyceridemia Plan Will discuss further care with Dr. Sellers. Patient may be able to discharge today. Assessment and plan all Dx Assessment and Plan All Dx:: Abdominal pain is improving daily. He is tolerating diet. Bowels are moving. He is stable for discharge and will f/u with his PCP.
--- NOTE | 2022-01-23 09:54 | HMH.PHAINT1 ---
Pharmacy Intervention Comments: DISCHARGE MEDICATION COUNSELING PROVIDED. DISCUSSED NEW OMEPRAZOLE (FOR REFLUX/UPSET STOMACH, TAKE DAILY PREFERRABLY 30-60 MINUTES BEFORE BREAKFAST, CAN CAUSE HEADACHE, GI UPSET) AND ZOFRAN (FOR NAUSEA/VOMITING, TAKE EVERY 6 HOURS NEEDED. PATIENT VERBALIZED NO QUESTIONS AT THIS TIME.
--- NOTE | 2022-01-23 17:01 | EXP.DC.SUM ---
General Admission date:: 01/16/22 Discharge date: 01/23/22 HPI HPI HPI: Alfonso is a 26-year-old male who presented to the ER with a 3 day hx of abdominal pain.? Patient states that 3 days prior to arrival, he began having abdominal pain while he was sitting on the couch.? It was mild, burning at first, but has progressed to 10 out of 10, stabbing/burning pain that radiates to his back and bilateral flanks.? He has been unable tolerate any food or drink.? Denies bilious or bloody vomiting.? Has associated dark urine without hematuria or dysuria.? Patient has not had diarrhea, fevers, chills, constipation, blood in his stool, cough, shortness of breath, chest pain, recent travel, or any other concerning history. He does admit to drinking 1/2 to 1 pint of hard liquor per day. Report the findings consistent with pancreatitis.? White count was mildly elevated as were his liver functions.? Lipase elevated at 334.? CT scan is consistent with acute pancreatitis with no necrosis or cystic formation.? Also noted to have elevated triglycerides of 2200. Hospital Course Hospital Course Hospital Course: The patient was admitted for treatment of his pancreatitis with IV fluids, bowel rest, pain medication, and antiemetics. It was felt he was at risk for alcohol withdrawal protocol and [facility] protocol was in place with as needed Ativan. His triglycerides did begin improving and his lipase normalized. He continued to have significant pain requiring pain medication. He was started on a clear liquid diet and had no vomiting. His diet was advanced to a full liquid diet. He did begin having some worsening pain after starting a diet. He was taken back to clear liquids and IV Phenergan was ordered to give along with his morphine. His alkaline phosphatase did begin increasing and he was scheduled for an MRCP. His MRCP showed changes of acute pancreatitis, but no dilatation of the biliary or pancreatic ducts. His bilirubin began decreasing as did his alk phos. His diet was advanced and he tolerated this with only minimal nausea. By 01/23/2022 he was feeling better and wanted to go home. He had developed some diarrhea. He was stable for discharge and will need to follow-up with his PCP. Exam Data for Last 24 hours Vital signs and Labs for Last 24 Hours: Temp Pulse Resp BP Pulse Ox 98.0 F 86 18 138/85 100 01/23/22 08:00 01/23/22 08:00 01/23/22 08:00 01/23/22 08:07 01/23/22 08:00 Laboratory Results - last 24 hr 01/17/22 07:40: LDL Cholesterol Direct 219 H I & O for Last 24 hours: Intake & Output 01/21/22 01/22/22 01/23/22 01/24/22 11:59 11:59 11:59 11:59 Intake Total 4348 / 4348 3460 / 3460 3124 / 3124 Output Total 0 / 0 500 / 500 200 / 200 Balance 4348 / 4348 2960 / 2960 2924 / 2924 Weight 180 lb 176 lb 12.795 oz 176 lb 9.6 oz Narrative: Constitutional: no acute distress Respiratory: CTA bilaterally Cardiac: Reg Rate and Rhythm GI: soft, tenderness (epigastric and LUQ), no guarding, no rebound and normal bowel sounds Results Data Completed and Pending Labs on day of discharge: Labs from last 24 hours 01/17/22 07:40 LDL Cholesterol Direct 219 H DS: Diagnosis Discharge Diagnosis (1) Acute alcoholic pancreatitis: Status: Acute (2) ETOH abuse: Status: Acute (3) Hypertriglyceridemia: Status: Acute Meds Home Medications and Allergies Home Medications Medication Instructions Recorded Confirmed Type omeprazole 40 mg capsule,delayed 40 mg PO DAILY 14 days #14 caps 01/23/22 Rx release ondansetron 4 mg disintegrating 4 mg PO Q6H PRN nausea and 01/23/22 Rx tablet vomiting #20 tabs New Prescriptions to Start Prescriptions: omeJason Leal ondansetron Jason Sellers Allergies Allergy/AdvReac Type Severity Reaction Status Date / Time No Known Allergies Allergy Verified 11/08/19 13:1
--- NOTE | 2022-01-24 13:29 | CARE MANAGER ---
Spoke with patient for post-discharge phone interview. Patient is ok and is aware of follow-up appointment.
== END 2022-01-23 09:53 | disposition home or self-care (01) ==
LOC: ER 11:13 → 2ND 12:05
PROVIDERS: Family Medicine; Admitting Provider Family Medicine; Emergency Provider Emergency Medicine; PCP Family Medicine; Visit Provider Family Medicine
DX: K85.20 Alcohol induced acute pancreatitis without necrosis or infection (principal); E78.1 Pure hyperglyceridemia; F10.10 Alcohol abuse, uncomplicated; F17.210 Nicotine dependence, cigarettes, uncomplicated
CPT/HCPCS: 36415; 74177; 74181; 76376; 80053; 80061; 80076; 81001; 83605; 83690; 84478; 85007; 85025; 99285; C9803; G0378; J2405; Q9967; U0003; U0005

== ENCOUNTER 2022-02-03 13:11 | Emergency (ER) | payer OTHER, SELFPAY ==
[2022-02-03] VITALS (8 sets, daily range): BP systolic 115–155; BP diastolic 73–91; PULSE 76–103; RESP 16–20; TEMP 36.8–37.1; O2SAT 97–100; BMI 24.1; BMI 23.1
[2022-02-03 13:39] LABS: UTC Strep Screen (Rapid) Negative (Negative)
--- NOTE | 2022-02-03 13:40 | EXP.UTC ---
Discharge Plan Disposition Patient Disposition: Home, Self-Care Condition: Good Prescriptions Prescriptions: No Action ondansetron 4 mg tablet,disintegrating 4 mg PO Q6H PRN (Reason: nausea and vomiting) Qty: 20 0RF lorazepam 0.5 mg tablet 0.5 mg PO DAILY omeprazole 40 mg capsule,delayed release(DR/EC) 40 mg PO DAILY Referrals Follow up/Referrals: Catracho Sage MD [Primary Care Provider] - See instructions Clinical Impressions Clinical Impression: Acute chest wall pain Instructions Patient Instructions: DI for Acute Abdominal Pain Print Language Print Language: [place] Islander Discharge ED Provider: Markus White [facility] [place] HPI <Misty Storm Salvatore, DANIELLA - Last Filed: 02/03/22 21:05> General Chief complaint: Abdominal Pain Stated complaint: side and lung pain Mode of Arrival: Ambulatory Source of Information: Patient Limitations: No Limitations Time Seen by Provider: 02/03/22 13:45 Description of Symptoms (Recalled from Triage Doc. by RN): pt comes in with c/o back pain on left side wrapping aroun from back to front. sore throat and pancreatic pain. symptoms began yesterday HEENT Symptoms (Recalled from RN notes): Yes Resp Symptoms (Recalled from RN notes): No Skin Symptoms (Recalled from RN notes): No MS Symptoms (Recalled from RN notes): No Functional Status (Recalled from RN notes): n/a History of Present Illness Provider Complaint: Patient states that he was recently in the hospital for pancreatitis and just got out about 11 days ago States that he started having pain in his left side that radiates around to his mid upper abdomen states that he is tender again in his upper abdomen like he was when he had pancreatitis a few weeks back and worried that it is back again Reports he is 19 days sober and pain has continued to get worse Related Data Home Medications Medication Instructions Recorded Confirmed lorazepam 0.5 mg tablet 0.5 mg PO DAILY Anxiety 02/03/22 02/03/22 omeprazole 40 mg capsule,delayed 40 mg PO DAILY GERD 02/03/22 02/03/22 release Previous Rx's Medication Instructions Recorded ondansetron 4 mg disintegrating 4 mg PO Q6H PRN nausea and 01/23/22 tablet vomiting #20 tabs Allergies Allergy/AdvReac Type Severity Reaction Status Date / Time No Known Allergies Allergy Verified 02/03/22 13:38 Worker's Comp Is this a Worker's Comp case?: No PFSH <Misty Chase APRN - Last Filed: 02/03/22 21:05> PFSH Medical History Acute hemorrhoid Wrist fracture, left Social History Smoking Status: Current every day smoker tobacco type: cigarettes and e-cigarettes alcohol intake: current current occupational status: employed and other Travel in the last 8 weeks: None household members: significant other housing: apartment lives independently: Yes marital status: single education level: high school service: No senior care: No well-balanced diet: daily or most days caffeine: No <Misty Chase APRN - Last Filed: 02/03/22 21:05> ROS Obtained: Yes All systems reviewed & no additional complaints except as documented ENT Ears, Nose, Mouth, and Throat: Reports system reviewed and no additional complaints, except as documented and Reports as per HPI <Markus White MD - Last Filed: 02/03/22 19:09> ROS Obtained: Yes Systems reviewed as appropriate & no additional complaints except as documented Constitutional Constitutional: Reports system reviewed and no additional complaints, except as documented Eyes Eyes: Reports system reviewed and no additional complaints, except as documented ENT Ears, Nose, Mouth, and Throat: Reports system reviewed and no additional complaints, except as documented Cardiovascular Cardiovascular: Reports system reviewed and no additional complaints, except as documented Respiratory Respiratory: Reports system reviewed and no
--- NOTE | 2022-02-03 14:11 | XR_ITS ---
FINAL REPORT TECHNIQUE: Chest PA & Lateral CLINICAL HISTORY: left chest wall pain COMPARISON: June 26, 2021 FINDINGS: TWO-VIEW CHEST 2 views of the chest were performed. The heart size is normal. The mediastinum is within normal limits. There is no acute cardiopulmonary process. There are no pleural effusions. There is no pneumothorax. The bony thorax appears intact. IMPRESSION: No acute cardiopulmonary process. Reviewed, Interpreted and Dictated by Yobani Vega MD Transcribed by Yovana Dunham Authenticated and [facility]
[2022-02-03 14:14] LABS: Microscopic, Urine URINE MICROSCOPIC (MICROSCOPIC)
[2022-02-03 14:17] LABS: Appearance,Urine CLEAR (Clear); Bilirubin,Urine Negative (Negative); Blood, Urine Negative (Negative); Color,Urine YELLOW (Yellow); Glucose,Urine (UA) Negative (Negative); Ketones,Urine Negative (Negative); Leukocyte Esterase,Urine Negative (Negative); Nitrate,Urine Negative (Negative); Protein,Urine Negative (Negative); Specific Gravity, Urine 1.015 (1.005-1.030); Urobilinogen,Urine 0.2 EU/dl (0.2)
[2022-02-03 14:40] LABS: Squamous Epithelial Cell,Urine Occasional #/hpf (0-5)
[2022-02-03 15:29] LABS: Alanine Aminotransferase 50 U/L (12-78); Albumin Level 4.3 g/dl (3.5-5.0); Albumin/Globulin Ratio 1.5 (1.1-1.8); Alkaline Phosphatase 107 U/L (38-126); Anion Gap 15.7 mEq/L (5-15); Aspartate Amino Transferase 45 U/L (17-59); Bilirubin,Total 0.2 mg/dl (0.2-1.3); Blood Urea Nitrogen 10 mg/dl (9-20); Calcium 9.1 mg/dl (8.4-10.2); Carbon Dioxide 28 mmol/L (22.0-30.0); Chloride 100 mmol/L (98-107); Creatinine Clearance Estimated 206 mL/min (50-200); Estimated Glomerular Filt Rate 160 ml/min (>60); GFR (African American) 194 ML/MIN (>60); Globulin 2.8 g/dL (1.3-3.2); Glucose 98 mg/dl (74-100); Lipase 98 U/L (23-300); Potassium 3.7 mmoL/L (3.5-5.1); Sodium 140 mmol/L (136-145); Total Protein,Serum 7.1 g/dl (6.3-8.2)
[2022-02-03 15:30] LABS: Basophils # 0.1 K/mm3 (0-0.2); Basophils % 0.6 % (0.1-2.0); Eosinophils # 0.1 K/mm3 (0.0-0.4); Hematocrit 35.3 % (42.0-52.0); Hemoglobin 11.4 g/dL (14.1-18.0); Lymphocytes # 1.4 K/mm3 (0.7-4.5); Lymphocytes % 17.5 % (10-50); Mean Corpuscular HGB Conc 32.1 g/dL (31.8-35.4); Mean Corpuscular Hemoglobin 31.5 pg (27.0-31.2); Mean Platelet Volume 8.8 fl (7.4-10.4); Monocytes # 0.5 K/mm3 (0.1-1.0); Monocytes % 5.8 % (1.7-9.3); Neutrophils # 5.9 K/mm3 (1.8-7.8); Platelet Count 400 K/mm3 (142-424); Red Blood Count 3.61 M/mm3 (4.60-6.20); Red Cell Distribution Width 13.6 % (11.5-17.5); White Blood Count 7.9 K/mm3 (4.8-10.8)
[2022-02-03 15:34] LABS: D-Dimer 0.81 ug/mL (0.0-0.5)
--- NOTE | 2022-02-03 15:37 | CT_ITS ---
FINAL REPORT TECHNIQUE: Thin section axial CT images were obtained from the lung apices to the upper abdomen. IV contrast was administered. MIP 3-D reformats were obtained. This study was performed with techniques to keep radiation doses as low as reasonably achievable (ALARA). Individualized dose reduction techniques using automated exposure control or adjustment of mA and/or kV according to the patient's size were employed. CLINICAL HISTORY: chest pain, elevated d-dimer FINDINGS: The heart size is normal. There is no adenopathy. There is no filling defect to suggest PE. There is no aortic dissection. There is no pericardial effusion. There is no suspicious infiltrate or nodule. No pleural effusion. Limited images of the upper abdomen demonstrate no acute abnormality. IMPRESSION: No pulmonary embolism or aortic dissection. Reviewed, Interpreted and Dictated by Yobani Vega MD Transcribed by Heladio Miner Authenticated and . [facility]
--- NOTE | 2022-02-03 16:48 | PC.NURSE ---
ED MD AT BEDSIDE TO DISCUSS POC WITH PT
== END 2022-02-03 17:25 | disposition home or self-care (01) ==
LOC: UTC 13:46 → ER 13:55
PROVIDERS: Nurse Practitioner; Emergency Provider Emergency Medicine; PCP Family Medicine
DX: R07.89 Other chest pain (principal)
CPT/HCPCS: 71046; 71275; 80053; 81001; 83690; 85025; 85378; 87880; 96361; 96374; 99284; Q9967

== ENCOUNTER 2022-03-26 12:08 | Inpatient (IN) | payer OTHER, SELFPAY ==
[2022-03-26] VITALS (10 sets, daily range): BP systolic 130–186; BP diastolic 96–125; PULSE 84–108; RESP 18–20; TEMP 36.7–37.2; O2SAT 98–100; BMI 22.4; BMI 23.6
--- NOTE | 2022-03-26 14:07 | HMH.EDGENADL ---
Discharge Plan Disposition Patient Disposition: Admitted As Inpatient Condition: Good Prescriptions Prescriptions: No Action omeprazole 40 mg capsule,delayed release(DR/EC) 40 mg PO DAILY Referrals Follow up/Referrals: Catracho Sage MD [Primary Care Provider] - See instructions Clinical Impressions Clinical Impression: Pancreatitis, alcoholic, acute Instructions Patient Instructions: DI for Diarrhea and Traveler's Diarrhea -- Adult, DI for Diarrhea and Traveler's Diarrhea -- Child, DI for Nausea -- Adult, DI for Nausea -- Child Discharge ED Provider: Enedelia Goins General Adult HPI General Chief complaint: Nausea/Vomiting/Diarrhea Stated complaint: Vomitting blood Time Seen by Provider: 03/26/22 13:45 Mode of Arrival: Ambulatory Source of Information: Patient Limitations: No Limitations Description of Symptoms (Recalled from ER Triage Doc. by RN): Pt reports vomited bright red blood this morning. Pt c/o upper abd pain and nausea. Pt reports unable to keep down food x4 days. Pt reports constant nausea. Pt reports has been drinking daily for approx 3 weeks. Pt reports he was previosly sober for 44 days and had been diagnosed with pancreatitis and hospitalized. Pt BUE is tremulous in nature. History of Present Illness HPI narrative: This patient is a 27-year-old male with a history of alcoholism and chronic alcoholic pancreatitis presenting to the emergency department for evaluation of epigastric pain, nausea, and vomiting x4 days. He states that he vomited up blood-streaked emesis this morning. He was previously sober for 44 days, but he has been drinking daily for the past 3 weeks. Last drink was last night. He states that this feels exactly the same as his prior bouts of pancreatitis. It is severe, constant, and nothing makes it better or worse. He denies any chest pain, shortness of breath, rashes, or swelling. Related Data Home Medications Medication Instructions Recorded Confirmed omeprazole 40 mg capsule,delayed 40 mg PO DAILY GERD 02/03/22 03/26/22 release Allergies Allergy/AdvReac Type Severity Reaction Status Date / Time No Known Allergies Allergy Verified 02/03/22 13:38 [facility] Medical History Acute hemorrhoid Wrist fracture, left Social History Smoking Status: Current every day smoker tobacco type: cigarettes and e-cigarettes alcohol intake: current current occupational status: employed and other Travel in the last 8 weeks: None household members: significant other housing: apartment lives independently: Yes marital status: single education level: high school service: No fdc: No well-balanced diet: daily or most days caffeine: No ROS Obtained: Yes All systems reviewed & no additional complaints except as documented 14 point review of systems obtained and negative except otherwise mentioned in HPI. Physical Exam General General appearance: alert and in no apparent distress Head Head exam: atraumatic and normocephalic Eye Eye exam: Present normal appearance, PERRL and EOMI ENT ENT exam: Present normal exam, normal oropharynx and mucous membranes moist Neck Neck exam: Present normal inspection and full ROM Chest Chest inspection: Present normal inspection and symmetric chest wall rise Respiratory Respiratory exam: Present normal lung sounds bilaterally; Absent respiratory distress or wheezes Cardiovascular Cardiovascular exam: Present regular rate and normal rhythm Abdominal Exam Abdominal exam: Present soft and tenderness (Epigastric); Absent distention, guarding, rebound or rigidity Extremities Exam Extremities exam: Present normal inspection, full ROM and tenderness Back Exam Back exam: Present normal inspection and full ROM; Absent tenderness Neurological Exam Neurological exam: Present alert, oriented X3 and
--- NOTE | 2022-03-26 14:25 | PC.NURSE ---
notified ER pt just reported to me that he has also been having blood in his stool for approx 1 week.
--- NOTE | 2022-03-26 14:45 | ECG_ITS ---
APPROVED REPORT Exam: Resting ECG HR:82 bpm ECG Measurements Heart Rate 82 AXES LA 151 P 50 QRSd 95 QRS 77 QT 358 T 75 QTc 397 Conclusion SINUS RHYTHM NORMAL ECG UNCONFIRMED REPORT Electronically signed by : Jignesh Crawford MD 03/27/2022 19:50:29
--- NOTE | 2022-03-26 14:59 | HMH.PHAINT1 ---
Pharmacy Intervention Comments: MEDICATION RECONCILIATION COMPLETED ON PATIENT USING EXTERNAL FILL HISTORY FROM PHARMACY AND [facility] REPORT. -MICHAEL CHAPIN, SUSAND
[2022-03-26 15:02] LABS: Alanine Aminotransferase 50 U/L (12-78); Albumin Level 4.8 g/dl (3.5-5.0); Albumin/Globulin Ratio 1.5 (1.1-1.8); Alkaline Phosphatase 281 U/L (38-126); Anion Gap 24.3 mEq/L (5-15); Aspartate Amino Transferase 111 U/L (17-59); Blood Urea Nitrogen 10 mg/dl (9-20); Calcium 9.2 mg/dl (8.4-10.2); Carbon Dioxide 17 mmol/L (22.0-30.0); Chloride 98 mmol/L (98-107); Creatinine Clearance Estimated 133 mL/min (50-200); Estimated Glomerular Filt Rate 100 ml/min (>60); GFR (African American) 122 ML/MIN (>60); Globulin 3.2 g/dL (1.3-3.2); Glucose 117 mg/dl (74-100); Potassium 4.3 mmoL/L (3.5-5.1); Sodium 135 mmol/L (136-145)
[2022-03-26 15:26] LABS: Lactic Acid 2.7 mmol/L (0.7-2.1)
[2022-03-26 15:45] LABS: Basophils % 0.6 % (0.1-2.0); Eosinophils # 0.1 K/mm3 (0.0-0.4); Eosinophils % 1.5 % (0.1-12.0); Hematocrit 49.1 % (42.0-52.0); Hemoglobin 16.1 g/dL (14.1-18.0); Lymphocytes # 1.5 K/mm3 (0.7-4.5); Lymphocytes % 27.5 % (10-50); Mean Corpuscular HGB Conc 32.8 g/dL (31.8-35.4); Mean Corpuscular Hemoglobin 30.1 pg (27.0-31.2); Mean Corpuscular Volume 91.8 fl (80-94); Mean Platelet Volume 10.5 fl (7.4-10.4); Monocytes # 0.2 K/mm3 (0.1-1.0); Monocytes % 3.9 % (1.7-9.3); Neutrophils # 3.7 K/mm3 (1.8-7.8); Neutrophils % 66.5 % (37.0-80.0); Platelet Count 177 K/mm3 (142-424); Red Blood Count 5.34 M/mm3 (4.60-6.20); Red Cell Distribution Width 13.4 % (11.5-17.5); White Blood Count 5.5 K/mm3 (4.8-10.8)
--- NOTE | 2022-03-26 16:48 | PC.NURSE ---
contacted lab to check on status of lipase results, states has approx 8 minutes left until result.
--- NOTE | 2022-03-26 16:52 | PC.NURSE ---
covid swab sent to lab at this time.
[2022-03-26 16:55] LABS: Coronavirus 19, PCR Not Detected (NotDetected); Influenza A, PCR Not Detected (NotDetected); Influenza B, PCR Not Detected (NotDetected)
[2022-03-26 17:33] LABS: Lipase 219 U/L (23-300)
--- NOTE | 2022-03-26 18:02 | CT_ITS ---
PROCEDURE INFORMATION: Exam: CT Abdomen And Pelvis With Contrast Exam date and time: 03/26/2022 7:30 PM Age: 27 years old Clinical indication: Abdominal pain; Generalized; Additional info: Possible pancreatitis TECHNIQUE: Imaging protocol: Computed tomography of the abdomen and pelvis with contrast. Radiation optimization: All CT scans at this facility use at least one of these dose optimization techniques: automated exposure control; mA and/or kV adjustment per patient size (includes targeted exams where dose is matched to clinical indication); or iterative reconstruction. Contrast material: ISOVUE; Contrast volume: 75 ml; Contrast route: IV; COMPARISON: MR ABDOMEN WO CON 01/21/2022 8:29 AM FINDINGS: Lungs: Lung bases are unremarkable. Liver: No focal hepatic lesions. Gallbladder and bile ducts: Normal. No calcified stones. No ductal dilation. Pancreas: Improved but persistent minimal peripancreatic inflammatory changes particularly along the pancreatic head. No peripancreatic collection. Spleen: Click gallbladderNo splenomegaly. Adrenal glands: Normal. No mass. Kidneys and ureters: Normal. No hydronephrosis. Stomach and bowel: Unremarkable. No obstruction. No mucosal thickening. Appendix: A normal appendix is identified. Intraperitoneal space: Unremarkable. No free air. No significant fluid collection. Vasculature: Superior mesenteric vein is patent. Splenic portal confluence is unremarkable. Aorta is nonaneurysmal. Lymph nodes: Unremarkable. No enlarged lymph nodes. Urinary bladder: Urinary bladder is unremarkable. Reproductive: Unremarkable as visualized. Bones/joints: Unremarkable. No acute fracture. Soft tissues: Unremarkable. IMPRESSION: Improved but persistent minimal peripancreatic inflammatory changes. No discrete collection.
[2022-03-26 18:08] LABS: Ethyl Alcohol 113 mg/dl (0-10)
[2022-03-26 18:42] LABS: Reflex Lactic Add Lactic Reflex
[2022-03-26 19:36] LABS: Barbiturates Screen,Urine Positive ng/ml (<200)
[2022-03-26 19:37] LABS: Amphetamine/Metha Screen,Urine Negative ng/ml (<1000); Benzodiazepines Screen,Urine Negative ng/ml (<200)
[2022-03-26 19:38] LABS: Cocaine Screen,Urine Negative ng/ml (<300)
[2022-03-26 19:39] LABS: Cannabinoid Screen,Urine Negative ng/ml (<50); Methadone Screen,Urine Negative ng/ml (<300)
[2022-03-26 19:40] LABS: Opiate Screen,Urine Positive ng/ml (<300); Phencyclidine Screen,Urine Negative ng/ml (<25)
--- NOTE | 2022-03-26 19:50 | PC.NURSE ---
per hospitalist assistant reading teacher states admitting pt for alcohol withdraw
--- NOTE | 2022-03-26 19:51 | PC.NURSE ---
vat house laborer notified of admission
--- NOTE | 2022-03-26 20:03 | PC.NURSE ---
shift change report given to jeanrn
--- NOTE | 2022-03-26 20:28 | PC.NURSE ---
pt report called to Cecily LAMB @2010
--- NOTE | 2022-03-26 20:31 | PC.NURSE ---
pastient up to floor via wheelchair @ this time.
[2022-03-26 20:39] LABS: Chol/HDL Ratio 3.6 (1-3.5); Cholesterol 183 mg/dl (140-200); HDL Cholesterol 51 mg/dl (40-60)
[2022-03-26 20:52] LABS: Direct LDL Cholesterol < 30.00 mg/dL (100-129); Triglycerides 1398 mg/dl (30-150)
--- NOTE | 2022-03-26 22:21 | EXP.HP ---
History of Present Illness *Admission Date: 03/26/22 *Reason for visit:: abdominal pain *History of present illness: This is a 27-year-old male with a past medical history of alcoholic pancreatitis who presents emergency department today with complaints of abdominal pain. He reports being hospitalized approximately 1 month ago for 8 days secondary to alcohol withdrawal and pancreatitis. He reports at that time he was sober for approximately 42 days but has been drinking 1/5 of fireball a day recently. He reports his last drink was last night. He presents today with continued epigastric pain, anorexia and generalized unwell feeling. Emergency department work-up mostly unremarkable. Anion gap 24, lactic of 2.7. CT of the abdomen shows continued inflammatory changes around the pancreas but improved from prior imaging. Due to patient's tremulousness, tachycardia and mild hallucinations he will be admitted to the hospital service for further evaluation and management. [facility] Medical History Acute hemorrhoid Wrist fracture, left Family History Other Family history of hypertension Social History Smoking Status: Current every day smoker tobacco type: cigarettes and e-cigarettes alcohol intake: current current occupational status: employed and other Travel in the last 8 weeks: None household members: significant other housing: apartment lives independently: Yes marital status: single education level: high school service: No fpc: No well-balanced diet: daily or most days caffeine: No Review of Systems Constitutional Constitutional: Reports body ache(s), Reports chills, Reports excessive sweating and Reports poor appetite Eyes Eyes: Reports system reviewed and no additional complaints, except as documented ENT Ears, Nose, Mouth, and Throat: Reports system reviewed and no additional complaints, except as documented *Cardiovascular Cardiovascular: Reports palpitations *Respiratory Respiratory: Reports system reviewed and no additional complaints, except as documented *Gastrointestinal Gastrointestinal: Reports abdominal pain and Reports cramping *Genitourinary Genitourinary: Reports system reviewed and no additional complaints, except as documented *Musculoskeletal Musculoskeletal: Reports system reviewed and no additional complaints, except as documented Integumentary/Breasts Skin/Breast: Reports system reviewed and no additional complaints, except as documented *Neurologic Comments: Visual hallucinations Psychiatric Psychiatric: Reports anxiety, Reports irritability and Reports visual hallucinations Endocrine Endocrine: Reports excessive sweating and Reports palpitations Meds Home Medications and Allergies Home Medications Medication Instructions Recorded Confirmed Type omeprazole 40 mg capsule,delayed 40 mg PO DAILY GERD 02/03/22 03/26/22 History release New Prescriptions to Start Prescriptions: Allergies Allergy/AdvReac Type Severity Reaction Status Date / Time No Known Allergies Allergy Verified 02/03/22 13:38 Exam Data for Last 24 hours Vital signs and Labs for Last 24 Hours: Temp Pulse Resp BP Pulse Ox 98.3 F 108 H 18 186/125 H 98 03/26/22 20:35 03/26/22 20:35 03/26/22 20:35 03/26/22 20:35 03/26/22 20:35 Laboratory Results - last 24 hr 03/26/22 14:30: Sodium 135 L, Potassium 4.3, Chloride 98, Carbon Dioxide 17 L, Anion Gap 24.3 H, BUN 10, Creatinine 0.90, Estimated Creat Clear 133, Estimated GFR 100, Est GFR ( Amer) 122, Glucose 117 H, Calcium 9.2, Total Bilirubin 2.0 H, AST 111 H, ALT 50, Alkaline Phosphatase 281 H, Total Protein 8.0, Albumin 4.8, Globulin 3.2, Albumin/Globulin Ratio 1.5, Lipase 219 03/26/22 14:30: Lactate 2.7 H 03/26/22 15:37: WBC 5.5, RB
[2022-03-27] VITALS: BP 158/104; PULSE 94; RESP 18; TEMP 37.3; O2SAT 98
--- NOTE | 2022-03-27 01:48 | PC.NURSE ---
pt is now resting after medication administratin for withdrawal symptoms. pt reports he drinks 1/5 of fireball daily for the last three weeks but has been unable to maintain any length of sobriety in prior attempts. C/o poor appetite and not being able to keep liquids down. He is resting comfortably at this time. latest CIWA was a 9.
[2022-03-27 03:59] VITALS: BP 188/88; PULSE 83; RESP 18; TEMP 36.8; O2SAT 100
[2022-03-27 05:22] LABS: Chloride 96 mmol/L (98-107); Potassium 3.3 mmoL/L (3.5-5.1); Sodium 136 mmol/L (136-145)
[2022-03-27 05:24] LABS: Lipase 324 U/L (23-300)
[2022-03-27 05:25] LABS: Anion Gap 17.3 mEq/L (5-15); Blood Urea Nitrogen 6 mg/dl (9-20); Calcium 9.1 mg/dl (8.4-10.2); Carbon Dioxide 26 mmol/L (22.0-30.0); Creatinine Clearance Estimated 140 mL/min (50-200); Estimated Glomerular Filt Rate 100 ml/min (>60); GFR (African American) 122 ML/MIN (>60); Glucose 97 mg/dl (74-100); Magnesium 1.8 mg/dl (1.6-2.3); Phosphorous 3.5 mg/dl (2.5-4.5)
[2022-03-27 07:08] LABS: Basophils % 0.6 % (0.1-2.0); Eosinophils % 0.4 % (0.1-12.0); Hemoglobin 15.3 g/dL (14.1-18.0); Lymphocytes # 2.3 K/mm3 (0.7-4.5); Lymphocytes % 30.2 % (10-50); Mean Corpuscular HGB Conc 33.4 g/dL (31.8-35.4); Mean Corpuscular Volume 92.8 fl (80-94); Mean Platelet Volume 10.4 fl (7.4-10.4); Monocytes # 0.4 K/mm3 (0.1-1.0); Neutrophils # 4.8 K/mm3 (1.8-7.8); Neutrophils % 63.9 % (37.0-80.0); Platelet Count 165 K/mm3 (142-424); Red Blood Count 4.95 M/mm3 (4.60-6.20); Red Cell Distribution Width 13.4 % (11.5-17.5); White Blood Count 7.5 K/mm3 (4.8-10.8)
[2022-03-27 07:15] LABS: Alanine Aminotransferase 50 U/L (12-78); Albumin Level 4.3 g/dl (3.5-5.0); Albumin/Globulin Ratio 1.7 (1.1-1.8); Alkaline Phosphatase 101 U/L (38-126); Anion Gap 17.3 mEq/L (5-15); Aspartate Amino Transferase 65 U/L (17-59); Bilirubin,Total 1.1 mg/dl (0.2-1.3); Blood Urea Nitrogen 6 mg/dl (9-20); Carbon Dioxide 25 mmol/L (22.0-30.0); Chloride 96 mmol/L (98-107); Creatinine Clearance Estimated 140 mL/min (50-200); Estimated Glomerular Filt Rate 100 ml/min (>60); GFR (African American) 122 ML/MIN (>60); Globulin 2.5 g/dL (1.3-3.2); Glucose 102 mg/dl (74-100); Potassium 3.3 mmoL/L (3.5-5.1); Sodium 135 mmol/L (136-145); Total Protein,Serum 6.8 g/dl (6.3-8.2)
[2022-03-27 07:24] LABS: Triglycerides 782 mg/dl (30-150)
[2022-03-27 08:00] VITALS: BP 149/106; PULSE 109; RESP 18; TEMP 36.9; O2SAT 100
[2022-03-27 08:04] LABS: Ethyl Alcohol < 10 mg/dl (0-10)
--- NOTE | 2022-03-27 09:32 | SW/DCPLANNER ---
Addendum entered by Vivienne Vicente 03/27/22 10:52: Lana cortes/ [facility] has called back stating that she has reviewing patient information and asked that I follow up with her first thing tomorrow morning. Lana [phone] Original Note: Patient has expressed an interest in [facility] at time of discharge. stated that pending no setbacks patient could be medically stable for discharge tomorrow. I will fax patient information to [facility] this AM and follow up with facility and patient.
--- NOTE | 2022-03-27 09:34 | DIET.NUTRFU ---
Rounded with provider who okayed clear liquids. Kitchen notified
[2022-03-27 11:34] VITALS: BP 165/93; PULSE 114; RESP 20; TEMP 36.7; O2SAT 100
--- NOTE | 2022-03-27 12:26 | EXP.PN ---
Subjective *Date: 03/27/22 *Time: 12:26 Interval history: Patient reports he overall feels a little better today, however he does have significant epigastric abdominal pain and a headache. He reports having some hallucinations overnight, possibly seeing shadows of people in his peripheral vision, but no formed or specific auditory or visual hallucinations. He does feel somewhat tremulous as well. Exam Data for Last 24 hours Vital signs and Labs for Last 24 Hours: Temp Pulse Resp BP Pulse Ox 98.1 F 114 H 20 165/93 H 100 03/27/22 11:34 03/27/22 11:34 03/27/22 11:34 03/27/22 11:34 03/27/22 11:34 Laboratory Results - last 24 hr 03/26/22 14:30: Sodium 135 L, Potassium 4.3, Chloride 98, Carbon Dioxide 17 L, Anion Gap 24.3 H, BUN 10, Creatinine 0.90, Estimated Creat Clear 133, Estimated GFR 100, Est GFR ( Amer) 122, Glucose 117 H, Calcium 9.2, Total Bilirubin 2.0 H, AST 111 H, ALT 50, Alkaline Phosphatase 281 H, Total Protein 8.0, Albumin 4.8, Globulin 3.2, Albumin/Globulin Ratio 1.5, Lipase 219 03/26/22 14:30: Lactate 2.7 H 03/26/22 15:37: WBC 5.5, RBC 5.34, Hgb 16.1, Hct 49.1, MCV 91.8, MCH 30.1, MCHC 32.8, RDW 13.4, Plt Count 177, MPV 10.5 H, Neut % (Auto) 66.5, Lymph % (Auto) 27.5, [place] % (Auto) 3.9, Eos % (Auto) 1.5, Baso % (Auto) 0.6, Neut # (Auto) 3.7, Lymph # (Auto) 1.5, [place] # (Auto) 0.2, Eos # (Auto) 0.1, Baso # (Auto) 0.0 03/26/22 15:37: Plasma/Serum Alcohol 113 H 03/26/22 15:37: Triglycerides 1398 H, Cholesterol 183, LDL Cholesterol Direct < 30.00 L, HDL Cholesterol 51, Cholesterol/HDL Ratio 3.6 H 03/26/22 15:59: Urine Opiates Screen Positive H, Urine Methadone Screen Negative, Ur Barbituates Screen Positive H, Ur Phencyclidine Scrn Negative, Ur Amphetamines Screen Negative, U Benzodiazepines Scrn Negative, Urine Cocaine Screen Negative, U Marijuana (THC) Screen Negative 03/26/22 16:50: SARS-CoV-2 (PCR) Not detected, Influenza A Untype (PCR) Not detected, Influenza Type B (PCR) Not detected 03/27/22 05:00: Sodium 136, Potassium 3.3 L D, Chloride 96 L, Carbon Dioxide 26, Anion Gap 17.3 H, BUN 6 L D, Creatinine 0.90, Estimated Creat Clear 140, Estimated GFR 100, Est GFR ( Amer) 122, Glucose 97, Calcium 9.1, Phosphorus 3.5, Magnesium 1.8 03/27/22 05:00: Lipase 324 H 03/27/22 05:00: WBC 7.5 D, RBC 4.95, Hgb 15.3, Hct 46.0, MCV 92.8, MCH 31.0, MCHC 33.4, RDW 13.4, Plt Count 165, MPV 10.4, Neut % (Auto) 63.9, Lymph % (Auto) 30.2, [place] % (Auto) 5.0, Eos % (Auto) 0.4, Baso % (Auto) 0.6, Neut # (Auto) 4.8, Lymph # (Auto) 2.3, [place] # (Auto) 0.4, Eos # (Auto) 0.0, Baso # (Auto) 0.0 03/27/22 05:00: Sodium 135 L, Potassium 3.3 L, Chloride 96 L, Carbon Dioxide 25, Anion Gap 17.3 H, BUN 6 L, Creatinine 0.90, Estimated Creat Clear 140, Estimated GFR 100, Est GFR ( Amer) 122, Glucose 102 H, Calcium 9.0, Total Bilirubin 1.1, AST 65 H D, ALT 50, Alkaline Phosphatase 101, Total Protein 6.8, Albumin 4.3 D, Globulin 2.5, Albumin/Globulin Ratio 1.7, Triglycerides 782 H 03/27/22 05:00: Plasma/Serum Alcohol < 10 I & O for Last 24 hours: Intake & Output 03/24/22 03/25/22 03/26/22 03/27/22 23:59 23:59 23:59 23:59 Intake Total 480 / 480 Output Total 0 / 0 Balance 480 / 480 Weight 80.768 kg Constitutional Constitutional: no acute distress, average body habitus and cooperative Comments: somewhat tremulous *Routine HEENT Exam Head: Present normocephalic and atraumatic Eye: Present EOMI and PERRL ENT: Present mucous membranes moist *Routine Neck Exam Neck: Present supple and full ROM *Routine Respiratory Exam Respiratory: Present CTA bilaterally and normal respiratory effort; Absent accessory muscle use, respiratory distress, rhonchi, stridor, wheezes or crackles *Routine Cardiovascular Exam Cardiovascular: Present tachycardia (regular rhythm ); Absent murmur *Routine Abdominal Exam Abdominal: Present soft, normoactive bowel sounds and tenderness (epigastric, very tender to light palpation); Absent distended, alcira
[2022-03-27 15:24] VITALS: BP 148/84; PULSE 82; RESP 16; TEMP 36.9; O2SAT 100
[2022-03-27 17:58] LABS: Chloride 100 mmol/L (98-107); Potassium 4.1 mmoL/L (3.5-5.1); Sodium 135 mmol/L (136-145)
[2022-03-27 18:01] LABS: Amylase 62 U/L (30-110); Blood Urea Nitrogen 4 mg/dl (9-20); Creatinine Clearance Estimated 157 mL/min (50-200); Estimated Glomerular Filt Rate 115 ml/min (>60); GFR (African American) 139 ML/MIN (>60)
[2022-03-27 18:03] LABS: Alanine Aminotransferase 44 U/L (12-78); Albumin Level 4.3 g/dl (3.5-5.0); Albumin/Globulin Ratio 1.8 (1.1-1.8); Alkaline Phosphatase 77 U/L (38-126); Anion Gap 17.1 mEq/L (5-15); Aspartate Amino Transferase 78 U/L (17-59); Carbon Dioxide 22 mmol/L (22.0-30.0); Globulin 2.4 g/dL (1.3-3.2); Glucose 106 mg/dl (74-100); Lipase 277 U/L (23-300); Total Protein,Serum 6.7 g/dl (6.3-8.2)
[2022-03-27 18:04] LABS: Triglycerides 411 mg/dl (30-150)
--- NOTE | 2022-03-27 18:06 | EXP.DC.SUM ---
General Admission date:: 03/26/22 Discharge date: 03/27/22 HPI HPI HPI: This is a 27-year-old male with a past medical history of alcoholic pancreatitis who presents emergency department today with complaints of abdominal pain. He reports being hospitalized approximately 1 month ago for 8 days secondary to alcohol withdrawal and pancreatitis. He reports at that time he was sober for approximately 42 days but has been drinking 1/5 of fireball a day recently. He reports his last drink was last night. He presents today with continued epigastric pain, anorexia and generalized unwell feeling. Emergency department work-up mostly unremarkable. Anion gap 24, lactic of 2.7. CT of the abdomen shows continued inflammatory changes around the pancreas but improved from prior imaging. Due to patient's tremulousness, tachycardia and mild hallucinations he will be admitted to the hospital service for further evaluation and management. Hospital Course Hospital Course Hospital Course: Patient is a 27-year-old male with past medical history of alcohol abuse with acute on chronic pancreatitis. Patient was admitted last night with symptoms concerning for alcohol withdrawal, as well as severe epigastric abdominal pain and findings on CT abdomen and pelvis compatible with pancreatitis. Patient was treated with aggressive fluid resuscitation, pain meds as needed, CIWA scoring, and benzodiazepines as needed. Triglycerides were elevated at 1398 on admission, this improved to 782 this morning. Patient requested to be discharged this afternoon around 5 PM, saying he has spoken with his sponsor at and they are arranging for him to be admitted to an inpatient rehab facility for alcoholism. Patient's labs were rechecked and his triglycerides had improved to 411, lipase had trended down from 324-277, although his AST did increase from 65 this morning to 78 this afternoon. Unclear significance of this AST increase, however overall trend is down from 111 on admission yesterday. Additionally, patient is clinically improved, his tremors have resolved and patient is voicing a clear plan to help him gain sobriety. I think it is reasonable to discharge patient home so he can pursue this plan. Exam Data for Last 24 hours Vital signs and Labs for Last 24 Hours: Temp Pulse Resp BP Pulse Ox 98.4 F 82 16 148/84 H 100 03/27/22 15:24 03/27/22 15:24 03/27/22 15:24 03/27/22 15:24 03/27/22 15:24 Laboratory Results - last 24 hr 03/26/22 15:37: Plasma/Serum Alcohol 113 H 03/26/22 15:37: Triglycerides 1398 H, Cholesterol 183, LDL Cholesterol Direct < 30.00 L, HDL Cholesterol 51, Cholesterol/HDL Ratio 3.6 H 03/26/22 15:59: Urine Opiates Screen Positive H, Urine Methadone Screen Negative, Ur Barbituates Screen Positive H, Ur Phencyclidine Scrn Negative, Ur Amphetamines Screen Negative, U Benzodiazepines Scrn Negative, Urine Cocaine Screen Negative, U Marijuana (THC) Screen Negative 03/27/22 05:00: Sodium 136, Potassium 3.3 L D, Chloride 96 L, Carbon Dioxide 26, Anion Gap 17.3 H, BUN 6 L D, Creatinine 0.90, Estimated Creat Clear 140, Estimated GFR 100, Est GFR ( Amer) 122, Glucose 97, Calcium 9.1, Phosphorus 3.5, Magnesium 1.8 03/27/22 05:00: Lipase 324 H 03/27/22 05:00: WBC 7.5 D, RBC 4.95, Hgb 15.3, Hct 46.0, MCV 92.8, MCH 31.0, MCHC 33.4, RDW 13.4, Plt Count 165, MPV 10.4, Neut % (Auto) 63.9, Lymph % (Auto) 30.2, Bureau % (Auto) 5.0, Eos % (Auto) 0.4, Baso % (Auto) 0.6, Neut # (Auto) 4.8, Lymph # (Auto) 2.3, Bureau # (Auto) 0.4, Eos # (Auto) 0.0, Baso # (Auto) 0.0 03/27/22 05:00: Sodium 135 L, Potassium 3.3 L, Chloride 96 L, Carbon Dioxide 25, Anion Gap 17.3 H, BUN 6 L, Creatinine 0.90, Estimated Creat Clear 140, Estimated GFR 100, Est GFR ( Amer) 122, Glucose 102 H, Calcium 9.0, Total Bilirubin 1.1, AST 65 H D, ALT 50, Alkaline Phosphatase 101, Total Protein 6.8, Albumin 4.3 D, Globulin 2.5, Albumin/Globulin Ratio 1.7, Triglycerides 782 H 03/27/22 05:00: Plasma/S
--- NOTE | 2022-03-31 13:30 | CARE MANAGER ---
Attempted to contact patient x2 related to hospital discharge. No Vm option/
== END 2022-03-27 19:47 | disposition home or self-care (01) | DRG 897 ==
LOC: ER 19:02 → 2ND 20:14
PROVIDERS: Nurse Practitioner Acute Care; Admitting Provider Emergency Medicine; Emergency Provider Emergency Medicine; PCP Family Medicine; Visit Provider Emergency Medicine
DX: F10.251 Alcohol dependence with alcohol-induced psychotic disorder with hallucinations (principal); K86.0 Alcohol-induced chronic pancreatitis; Y90.5 Blood alcohol level of 100-119 mg/100 ml; F10.229 Alcohol dependence with intoxication, unspecified; F17.210 Nicotine dependence, cigarettes, uncomplicated; F13.239 Sedative, hypnotic or anxiolytic dependence with withdrawal, unspecified
CPT/HCPCS: 36415; 74177; 80048; 80053; 80061; 80305; 82150; 83605; 83690; 83735; 84100; 84478; 85025; 93005; 99285; C9803; J2405; Q9967; U0003; U0005

== ENCOUNTER 2022-12-23 13:09 | Inpatient (IN) | payer OTHER, SELFPAY ==
[2022-12-23] VITALS (8 sets, daily range): BP systolic 144–166; BP diastolic 09–125; PULSE 99–139; RESP 18–24; TEMP 36.5–37.3; O2SAT 95–98; BMI 23.1; BMI 24.2
--- NOTE | 2022-12-23 13:28 | PC.NURSE ---
Dr. Key at [facility]
--- NOTE | 2022-12-23 13:33 | CT_ITS ---
FINAL REPORT TECHNIQUE: Postcontrast axial images through the abdomen and pelvis were performed. This study was performed with techniques to keep radiation doses as low as reasonably achievable, (ALARA). Individualized dose reduction techniques using automated exposure control or adjustment of mA and/or kV according to the patient's size were employed. CLINICAL HISTORY: diffuse abd pain and ttp, melena, n/v COMPARISON: March 2022 FINDINGS: Abdomen: The lung bases are clear. The liver is fatty infiltrated. The gallbladder is present. The spleen is unremarkable. The adrenals are normal. The pancreas is unremarkable. The kidneys enhance appropriately. The aorta is normal in caliber. No free fluid or adenopathy is identified. No findings for mechanical bowel obstruction are identified. There is diffuse wall thickening of the colon and distal ileum, stable from prior. Pelvis: The appendix is normal. The urinary bladder is unremarkable. No free fluid, free air, abscess or adenopathy is identified. IMPRESSION: Diffuse but stable wall thickening of the distal ileum and colon may represent enteritis or inflammatory bowel disease. Reviewed, Interpreted and Dictated by Bolivar Ojeda III, MD Transcribed by Heladio Miner Authenticated and [facility]
--- NOTE | 2022-12-23 13:37 | HMH.EDGENADL ---
Discharge Plan Disposition Patient Disposition: Admitted Referrals Follow up/Referrals: Catracho Sage MD [Primary Care Provider] - See instructions Clinical Impressions Clinical Impression: Alcohol withdrawal, Acute epigastric pain, Nausea & vomiting, Alcoholic ketoacidosis, Acute alcoholic hepatitis Instructions Patient Instructions: DI for Acute Abdominal Pain Discharge ED Provider: Emperatriz Key General Adult HPI General Chief complaint: Abdominal Pain Stated complaint: abd pain, vomiting, diarrhea Time Seen by Provider: 12/23/22 13:26 Mode of Arrival: Family Vehicle Source of Information: Patient Limitations: No Limitations Description of Symptoms (Recalled from ER Triage Doc. by RN): Pt c/o upper abd pain that radiates to his mid-back. He also reports n/v/d, chills, shaking, and anxiety. He reports a long hx of alcholism and is recently trying to quit and self withdrawl slowly. His last alsholic drink was last night but he has been unable to keep and fluids, medications, or food down. He also reports a hx of pancreatitis almost 1 yr ago. Denies any fever. Tenderness noted to upper ABD. Pt states he was drinking a large bottle of vodka daily for years. He reports he is supposed to get the shot to help with alcoholism but his insurance has not approved it yet. History of Present Illness HPI narrative: Patient is a 27-year-old male with a history of alcohol abuse has been drinking heavily for the last few years greater than 1 pint of vodka daily presents today with multiple complaints. States that his only other effort to attempt to stop drinking in the past was when he had an episode of pancreatitis. He has been drinking heavily up until about 5 days ago when he attempted to stop at which point he started having epigastric abdominal pain nausea and vomiting has been vomiting since that time. Nonbloody nonbilious emesis however he has had some melena from historical standpoint. No history of ulcers. No sudden component of his abdominal pain has been slowly worsening. He tried to drink some yesterday to alleviate some of his symptoms but was unable to given the pain. States he has severe epigastric abdominal pain right now and still having some tremors associated withdrawal he states. No liver disease that he is aware of. No other medical problems. Related Data Allergies Allergy/AdvReac Type Severity Reaction Status Date / Time No Known Allergies Allergy Verified 02/03/22 13:38 [facility] Disclaimer: The information contained in this section may have been updated after the patient was seen, as this information can be updated by other users. Medical History Acute hemorrhoid Wrist fracture, left Family History Other Family history of hypertension Social History Smoking Status: Current every day smoker tobacco type: cigarettes and e-cigarettes alcohol intake: current current occupational status: employed and other Travel in the last 8 weeks: None household members: significant other housing: apartment lives independently: Yes marital status: single education level: high school service: No penitentiary: No well-balanced diet: daily or most days caffeine: No ROS Obtained: Yes All systems reviewed & no additional complaints except as documented Physical Exam General General appearance: other (In mild distress with some shaking tremors) Respiratory Respiratory exam: Present normal lung sounds bilaterally Cardiovascular Cardiovascular exam: Present tachycardia Abdominal Exam Abdominal exam: Present tenderness (Epigastric tenderness palpation there is some tenderness in other quadrants with some involuntary guarding) Neurological Exam Neurological exam: Present alert and oriented X3 Medical Decision Making
--- NOTE | 2022-12-23 13:43 | PC.NURSE ---
pt to ct scan via wheelchair
[2022-12-23 13:50] LABS: Alanine Aminotransferase 199 U/L (12-78); Albumin Level 4.7 g/dl (3.5-5.0); Albumin/Globulin Ratio 1.3 (1.1-1.8); Alkaline Phosphatase 137 U/L (38-126); Anion Gap 21.9 mEq/L (5-15); Aspartate Amino Transferase 410 U/L (17-59); Bilirubin,Total 1.5 mg/dl (0.2-1.3); Blood Urea Nitrogen 18 mg/dl (9-20); Calcium 9.4 mg/dl (8.4-10.2); Carbon Dioxide 19 mmol/L (22.0-30.0); Chloride 95 mmol/L (98-107); Creatinine Clearance Estimated 127 mL/min (50-200); Estimated Glomerular Filt Rate 89 ml/min (>60); GFR (African American) 108 ML/MIN (>60); Globulin 3.6 g/dL (1.3-3.2); Glucose 137 mg/dl (74-100); Potassium 3.9 mmoL/L (3.5-5.1); Sodium 132 mmol/L (136-145); Total Protein,Serum 8.3 g/dl (6.3-8.2)
[2022-12-23 13:57] LABS: Basophils % 0.5 % (0.1-2.0); Eosinophils % 0.4 % (0.1-12.0); Hematocrit 49.3 % (42.0-52.0); Hemoglobin 16.5 g/dL (14.1-18.0); Lymphocytes # 1.2 K/mm3 (0.7-4.5); Lymphocytes % 24.5 % (10-50); Mean Corpuscular HGB Conc 33.4 g/dL (31.8-35.4); Mean Corpuscular Hemoglobin 29.8 pg (27.0-31.2); Mean Corpuscular Volume 89.4 fl (80-94); Mean Platelet Volume 9.3 fl (7.4-10.4); Monocytes # 0.2 K/mm3 (0.1-1.0); Neutrophils # 3.3 K/mm3 (1.8-7.8); Neutrophils % 69.6 % (37.0-80.0); Platelet Count 194 K/mm3 (142-424); Red Blood Count 5.52 M/mm3 (4.60-6.20); Red Cell Distribution Width 13.6 % (11.5-17.5); White Blood Count 4.8 K/mm3 (4.8-10.8)
[2022-12-23 14:15] LABS: Activated Partial Thrombo Time 20.8 seconds (22.8-30.6); INR 1.01 (0.9-1.1); Prothrombin Time 10.9 seconds (10.1-12.5)
[2022-12-23 15:03] LABS: Lipase 102 U/L (23-300)
--- NOTE | 2022-12-23 15:12 | PC.NURSE ---
called CM for admission
--- NOTE | 2022-12-23 16:59 | EXP.HP ---
History of Present Illness *Admission Date: 12/23/22 *Reason for visit:: Abdominal pain, tremors *History of present illness: Mr. Menard is a 27-year-old male with a history of alcohol dependence. Previously heavy drinker for the past few years, 1 pint of liquor a day. Decided to quit drinking about 5 days ago. Has attempted to stop but developed significant nausea, abdominal pain, vomiting. Was having nonbloody/nonbilious emesis. Got to the point that he had nothing else to throw up and just had dry heaves. Decided to try and drink a little bit over the past 2 days but was unable to drink more than a few sips of water or alcohol. Presented to the ER today due to tremor, abdominal pain, feeling weak. Pain predominantly in the epigastrium. Denies any noted jaundice, fever, chills, sweats, melena, blood in stool. Of note has had an episode of pancreatitis in the past. Denies any history of gastritis or ulcers. Work-up in the ER positive for mild hepatitis with AST: AST ratio 2:1. Bilirubin mildly elevated. Coags normal. CT abdomen no perforation or free air. As patient still having significant pain, alcohol withdrawal symptoms, and unable to tolerate p.o. intake, ER consulted medicine for admission. On evaluation after arriving to the floor, patient is stable on room air. Has mild tremor in his hands. Tolerating rally pack. Would like to try to eat something but complaining of epigastric pain. We will trial GI cocktail. Denies any francisca emesis since admission. [facility] Disclaimer: The information contained in this section may have been updated after the patient was seen, as this information can be updated by other users. Medical History Acute hemorrhoid Wrist fracture, left Family History Family history of hypertension Social History Smoking Status: Current every day smoker tobacco type: cigarettes and e-cigarettes alcohol intake: current current occupational status: employed and other Travel in the last 8 weeks: None household members: significant other housing: apartment lives independently: Yes marital status: single education level: high school service: No snf: No well-balanced diet: daily or most days caffeine: No Review of Systems Review of Systems Review of systems (narrative): 14 point review of systems performed, pertinent positives and negatives as per HPI Meds Home Medications and Allergies Home Medications Medication Instructions Recorded Confirmed Type No Known Home Medications 12/23/22 12/23/22 History New Prescriptions to Start Prescriptions: Allergies Allergy/AdvReac Type Severity Reaction Status Date / Time No Known Allergies Allergy Verified 12/23/22 16:04 Exam Data for Last 24 hours Vital signs and Labs for Last 24 Hours: Temp Pulse Resp BP Pulse Ox O2 Del Method 97.9 F 100 H 19 166/125 H 95 Room Air 12/23/22 15:50 12/23/22 16:26 12/23/22 15:50 12/23/22 15:50 12/23/22 16:26 12/23/22 16:26 Laboratory Results - last 24 hr 12/23/22 13:25: WBC 4.8, RBC 5.52, Hgb 16.5, Hct 49.3, MCV 89.4, MCH 29.8, MCHC 33.4, RDW 13.6, Plt Count 194, MPV 9.3, Neut % (Auto) 69.6, Lymph % (Auto) 24.5, [place] % (Auto) 5.0, Eos % (Auto) 0.4, Baso % (Auto) 0.5, Neut # (Auto) 3.3, Lymph # (Auto) 1.2, [place] # (Auto) 0.2, Eos # (Auto) 0.0, Baso # (Auto) 0.0, PT 10.9, INR 1.01, APTT 20.8 L, Sodium 132 L, Potassium 3.9, Chloride 95 L, Carbon Dioxide 19 L, Anion Gap 21.9 H, BUN 18, Creatinine 1.00, Estimated Creat Clear 127, Estimated GFR 89, Est GFR ( Amer) 108, Glucose 137 H, Calcium 9.4, Total Bilirubin 1.5 H, AST 410 H*, ALT 199 H, Alkaline Phosphatase 137 H, Total Protein 8.3 H, Albumin 4.7, Globulin 3.6 H, Albumin/Globulin Ratio 1.3, Lipase 102 I & O for Last 24 hours: Intake &
[2022-12-23 17:51] LABS: Vitamin B12 400 pg/mL (239-931)
[2022-12-23 17:52] LABS: Folate 7.49 ng/mL
[2022-12-24] VITALS (11 sets, daily range): BP systolic 141–155; BP diastolic 94–108; PULSE 80–118; RESP 16–20; TEMP 35.9–37.4; O2SAT 95–100; BMI 24.3
[2022-12-24 06:27] LABS: Basophils % 0.4 % (0.1-2.0); Eosinophils % 0.6 % (0.1-12.0); Hematocrit 45.8 % (42.0-52.0); Hemoglobin 15.6 g/dL (14.1-18.0); Lymphocytes # 1.5 K/mm3 (0.7-4.5); Lymphocytes % 31.8 % (10-50); Mean Corpuscular Hemoglobin 30.2 pg (27.0-31.2); Mean Corpuscular Volume 88.8 fl (80-94); Mean Platelet Volume 8.9 fl (7.4-10.4); Monocytes # 0.2 K/mm3 (0.1-1.0); Monocytes % 4.6 % (1.7-9.3); Neutrophils # 2.9 K/mm3 (1.8-7.8); Neutrophils % 62.6 % (37.0-80.0); Platelet Count 135 K/mm3 (142-424); Red Blood Count 5.16 M/mm3 (4.60-6.20); Red Cell Distribution Width 13.5 % (11.5-17.5); White Blood Count 4.7 K/mm3 (4.8-10.8)
[2022-12-24 06:29] LABS: Alanine Aminotransferase 200 U/L (12-78); Albumin Level 4.1 g/dl (3.5-5.0); Albumin/Globulin Ratio 1.4 (1.1-1.8); Alkaline Phosphatase 112 U/L (38-126); Anion Gap 12.2 mEq/L (5-15); Aspartate Amino Transferase 443 U/L (17-59); Bilirubin,Total 2.5 mg/dl (0.2-1.3); Blood Urea Nitrogen 10 mg/dl (9-20); Calcium 9.1 mg/dl (8.4-10.2); Carbon Dioxide 28 mmol/L (22.0-30.0); Chloride 98 mmol/L (98-107); Creatinine Clearance Estimated 144 mL/min (50-200); Estimated Glomerular Filt Rate 100 ml/min (>60); GFR (African American) 122 ML/MIN (>60); Globulin 2.9 g/dL (1.3-3.2); Glucose 99 mg/dl (74-100); Phosphorous 3.3 mg/dl (2.5-4.5); Potassium 3.2 mmoL/L (3.5-5.1); Sodium 135 mmol/L (136-145)
[2022-12-24 07:24] LABS: Amphetamine/Metha Screen,Urine Negative ng/ml (<1000); Barbiturates Screen,Urine Negative ng/ml (<200); Benzodiazepines Screen,Urine Negative ng/ml (<200); Cannabinoid Screen,Urine Negative ng/ml (<50); Cocaine Screen,Urine Negative ng/ml (<300); Opiate Screen,Urine Negative ng/ml (<300); Phencyclidine Screen,Urine Negative ng/ml (<25)
--- NOTE | 2022-12-24 11:58 | EXP.ACUTE.PN ---
Subjective *Date: 12/24/22 *Time: 17:03 Interval history: Patient states he is feeling little bit better. Tremors improving. CIWA scores ranged from 6-12 overnight. No nausea or vomiting. Able to tolerate p.o. intake this morning for breakfast. Complaining of restless leg. Stable on room air. Afebrile. Medical Exam Vital signs and Labs for Last 24 Hours: Vital Signs Temp Pulse Pulse Resp BP BP Pulse Ox 12/24/22 11:00 99.0 F 84 16 141/98 H 98 12/24/22 10:43 12/24/22 08:00 100 H 12/24/22 09:00 12/24/22 07:43 112 H 97 12/24/22 07:34 99.0 F 112 H 18 144/107 H 97 12/24/22 04:00 90 12/24/22 00:00 90 12/24/22 06:48 12/24/22 05:00 12/24/22 03:00 12/23/22 20:00 110 H 12/24/22 04:00 96.6 F L 114 H 18 144/108 H 100 12/24/22 00:00 99.3 F 98 H 18 152/101 H 99 12/24/22 01:00 12/23/22 23:00 12/23/22 21:00 12/23/22 20:00 12/23/22 20:00 99.1 F 139 H 18 144/09 H 98 12/23/22 18:40 12/23/22 17:00 12/23/22 16:26 100 H 95 12/23/22 15:50 97.9 F 100 H 19 166/125 H 95 12/23/22 15:39 98.0 F 106 H 20 166/120 H 12/23/22 15:39 12/23/22 15:00 112 H 164/98 H 97 12/23/22 14:30 101 H 154/101 H 96 12/23/22 14:00 99 H 150/101 H 97 12/23/22 13:10 97.7 F 138 H 24 98 O2 Del Method 12/24/22 11:00 Room Air 12/24/22 10:43 Room Air 12/24/22 08:00 12/24/22 09:00 Room Air 12/24/22 07:43 Room Air 12/24/22 07:34 Room Air 12/24/22 04:00 12/24/22 00:00 12/24/22 06:48 Room Air 12/24/22 05:00 Room Air 12/24/22 03:00 Room Air 12/23/22 20:00 12/24/22 04:00 Room Air 12/24/22 00:00 Room Air 12/24/22 01:00 Room Air 12/23/22 23:00 Room Air 12/23/22 21:00 Room Air 12/23/22 20:00 Room Air 12/23/22 20:00 Room Air 12/23/22 18:40 Room Air 12/23/22 17:00 Room Air 12/23/22 16:26 Room Air 12/23/22 15:50 Room Air 12/23/22 15:39 Room Air 12/23/22 15:39 Room Air 12/23/22 15:00 Room Air 12/23/22 14:30 Room Air 12/23/22 14:00 12/23/22 13:10 Room Air Intake and Output 12/23/22 12/24/22 12/24/22 23:59 07:59 15:59 Intake Total 480 / 2480 300 / 300 Output Total 0 / 500 500 / 500 Balance 480 / 2480 300 / -200 -500 / -200 Intake: Intake, Oral Amount 480 / 480 300 / 300 Output: Output, Urine Amount 0 / 500 500 / 500 Other: Number of Unmeasured Voids 1 1 Weight 83.178 kg Patient Weight 12/24/22 23:59 Weight 83.178 kg Laboratory Results - last 24 hr 12/23/22 13:25: WBC 4.8, RBC 5.52, Hgb 16.5, Hct 49.3, MCV 89.4, MCH 29.8, MCHC 33.4, RDW 13.6, Plt Count 194, MPV 9.3, Neut % (Auto) 69.6, Lymph % (Auto) 24.5, Alfalfa % (Auto) 5.0, Eos % (Auto) 0.4, Baso % (Auto) 0.5, Neut # (Auto) 3.3, Lymph # (Auto) 1.2, Alfalfa # (Auto) 0.2, Eos # (Auto) 0.0, Baso # (Auto) 0.0, PT 10.9, INR 1.01, APTT 20.8 L, Sodium 132 L, Potassium 3.9, Chloride 95 L, Carbon Dioxide 19 L, Anion Gap 21.9 H, BUN 18, Creatinine 1.00, Estimated Creat Clear 127, Estimated GFR 89, Est GFR ( Amer) 108, Glucose 137 H, Calcium 9.4, Total Bilirubin 1.5 H, AST 410 H*, ALT 199 H, Alkaline Phosphatase 137 H, Total Protein 8.3 H, Albumin 4.7, Globulin 3.6 H, Albumin/Globulin Ratio 1.3, Lipase 102 12/23/22 14:30: Urine Opiates Screen Negative, Ur Barbituates Screen Negative, Ur Phencyclidine Scrn Negative, Ur Amphetamines Screen Negative, U Benzodiazepines Scrn Negative, Urine Cocaine Screen Negative, U Marijuana (THC) Screen Negative 12/23/22 16:00: Vitamin B12 400, Folate 7.49 12/24/22 05:25: WBC 4.7 L, RBC 5.16, Hgb 15.6, Hct 45.8, MCV 88.8, MCH 30.2, MCHC 34.0, RDW 13.5, Plt Count 135 L D, MPV 8.9, Neut % (Auto) 62.6, Lymph % (Auto) 31.8, Alfalfa % (Auto) 4.6, Eos % (Auto) 0.6, Baso % (Auto) 0.4, Neut # (Auto) 2.9, Lymph # (Auto) 1.5, Alfalfa # (Auto) 0.2, Eos # (Auto) 0.0, Baso # (Auto) 0.0, Sodium 135 L, Potassium 3.2 L, Chloride 98,
[2022-12-24 16:56] LABS: Methadone Screen,Urine Negative ng/ml (<300)
--- NOTE | 2022-12-24 16:56 | PC.NURSE ---
pt alert and oriented t/o shift. Ls clear t/o. abdomen soft, nontender, bs active. pt has had intermittent nausea this shift and was medicated per MAR. pt has been up ambulating around the room intermittently, pt on supply chain program manager and when up ambulating pt's heart rate goes to 130s. pt resting heart rate has been low 100s. pt scored on CIWA q4 hours and medicated per JUL. pt has stated that he feels like his appetite has improved. seizure pads in place. call light w/i reach.
--- NOTE | 2022-12-24 19:55 | PC.NURSE ---
Pt tachycardic 130's to 160's on telemetry. upon entering pts room pt states he was having out of body experience . CIWA score 16 at this time. Hospitalist notified.
[2022-12-25] VITALS (9 sets, daily range): BP systolic 120–161; BP diastolic 89–116; PULSE 80–115; RESP 16–22; TEMP 36.4–37.1; O2SAT 94–98; BMI 24.5
--- NOTE | 2022-12-25 05:15 | PC.NURSE ---
Pt has been medicated PRN per JUL this shift for CIWA scores, N/V, and headache. Pt has ambulated to bathroom with standby assist and tolerated well. HR has been 90's-160's this shift. HR <130 with rest. Remains NPO since midnight.
[2022-12-25 06:18] LABS: Chloride 99 mmol/L (98-107); Potassium 3.6 mmoL/L (3.5-5.1); Sodium 133 mmol/L (136-145)
[2022-12-25 06:21] LABS: Alanine Aminotransferase 175 U/L (12-78); Albumin Level 3.8 g/dl (3.5-5.0); Albumin/Globulin Ratio 1.4 (1.1-1.8); Alkaline Phosphatase 100 U/L (38-126); Anion Gap 11.6 mEq/L (5-15); Aspartate Amino Transferase 239 U/L (17-59); Bilirubin,Total 1.6 mg/dl (0.2-1.3); Blood Urea Nitrogen 9 mg/dl (9-20); Carbon Dioxide 26 mmol/L (22.0-30.0); Creatinine Clearance Estimated 145 mL/min (50-200); Estimated Glomerular Filt Rate 100 ml/min (>60); GFR (African American) 122 ML/MIN (>60); Globulin 2.8 g/dL (1.3-3.2); Total Protein,Serum 6.6 g/dl (6.3-8.2)
[2022-12-25 06:22] LABS: Calcium 9.2 mg/dl (8.4-10.2); Glucose 102 mg/dl (74-100); Magnesium 2.1 mg/dl (1.6-2.3)
--- NOTE | 2022-12-25 06:30 | EXP.ACUTE.PN ---
Subjective *Date: 12/25/22 *Time: 15:48 Interval history: Patient states he is feeling anxious and would like to go home and drink. I told him that we would obtain another CIWA and treat his withdraw s/s. Also c/o hungry due to being NPO all night for abd ultrasound this morning. Did require several doses of 2mg of Ativan over night. Due to CIWA being over 16 and tachycardia I upgraded admission status. Medical Exam Vital signs and Labs for Last 24 Hours: Vital Signs Temp Pulse Pulse Resp BP Pulse Ox O2 Del Method 12/25/22 05:00 Room Air 12/25/22 04:00 95 Room Air 12/25/22 04:00 100 H 12/25/22 04:00 98.7 F 96 H 20 132/94 H 96 Room Air 12/25/22 03:00 Room Air 12/25/22 02:00 96 H 17 149/110 H 97 Room Air 12/25/22 00:00 100 H 12/24/22 20:00 100 H 12/25/22 01:00 Room Air 12/25/22 00:00 97.6 F 108 H 22 144/97 H 98 Room Air 12/24/22 23:00 Room Air 12/24/22 22:00 118 H 20 155/103 H 95 Room Air 12/24/22 21:00 Room Air 12/24/22 20:00 Room Air 12/24/22 20:00 98.2 F 116 H 18 141/101 H 98 Room Air 12/24/22 18:39 Room Air 12/24/22 16:00 90 12/24/22 16:53 Room Air 12/24/22 12:00 80 12/24/22 15:08 98.8 F 98 H 18 148/94 H 98 Room Air 12/24/22 14:43 Room Air 12/24/22 13:00 Room Air 12/24/22 11:00 99.0 F 84 16 141/98 H 98 Room Air 12/24/22 10:43 Room Air 12/24/22 08:00 100 H 12/24/22 09:00 Room Air 12/24/22 07:43 112 H 97 Room Air 12/24/22 07:34 99.0 F 112 H 18 144/107 H 97 Room Air 12/24/22 06:48 Room Air Intake and Output 12/24/22 12/24/22 12/25/22 15:59 23:59 07:59 Intake Total 300 / 840 240 / 840 Output Total 500 / 500 0 / 500 0 / 0 Balance -200 / 340 240 / 340 0 / 0 Intake: Intake, Oral Amount 300 / 840 240 / 840 Output: Output, Urine Amount 500 / 500 0 / 500 0 / 0 Other: Number of Unmeasured Voids 1 1 2 Number of Bowel Movements 1 Weight 83.971 kg Patient Weight 12/25/22 23:59 Weight 83.971 kg Laboratory Results - last 24 hr 12/23/22 14:30: Urine Opiates Screen Negative, Urine Methadone Screen Negative, Ur Barbituates Screen Negative, Ur Phencyclidine Scrn Negative, Ur Amphetamines Screen Negative, U Benzodiazepines Scrn Negative, Urine Cocaine Screen Negative, U Marijuana (THC) Screen Negative 12/24/22 05:25: Sodium 135 L, Potassium 3.2 L, Chloride 98, Carbon Dioxide 28, Anion Gap 12.2, BUN 10 D, Creatinine 0.90, Estimated Creat Clear 144, Estimated GFR 100, Est GFR ( Amer) 122, Glucose 99 D, Calcium 9.1, Phosphorus 3.3, Magnesium 2.0, Total Bilirubin 2.5 H, AST 443 H*, ALT 200 H, Alkaline Phosphatase 112, Total Protein 7.0, Albumin 4.1 D, Globulin 2.9, Albumin/Globulin Ratio 1.4 I & O for Labs for Last 24 Hours: Intake & Output 12/22/22 12/23/22 12/24/22 12/25/22 23:59 23:59 23:59 23:59 Intake Total 2480 / 2480 840 / 840 Output Total 500 / 500 0 / 0 Balance 2480 / 2480 340 / 340 0 / 0 Weight 83.178 kg 83.178 kg 83.971 kg Head: Present atraumatic Eyes: Present as per HPI ENT: Present normal exam Neck: Present full ROM Respiratory: Present normal respiratory effort Cardiac: Present Tachycardia GI: Present soft and hyperactive bowel sounds; Absent distention or tenderness Rectal (male): Present deferred (male): Present deferred Extremities: Present full ROM Skin: Present intact Assessment and Plan *Assessment and plan (1) Acute alcoholic hepatitis: Status: Acute Category: Medical Code(s): K70.10 - Alcoholic hepatitis without ascites (2) Alcoholic ketoacidosis: Status: Acute Category: Medical Code(s): E87.29 - Other acidosis (3) Alcohol withdrawal: Status: Acute Qualifiers: Complication of substance-induced condition: uncomplicated Qualified Code(s): F10.930 - Alcohol use, unspecified with withdr
[2022-12-25 06:35] LABS: Basophils % 0.5 % (0.1-2.0); Eosinophils % 0.5 % (0.1-12.0); Hematocrit 43.9 % (42.0-52.0); Hemoglobin 14.5 g/dL (14.1-18.0); Lymphocytes # 1.4 K/mm3 (0.7-4.5); Lymphocytes % 31.7 % (10-50); Mean Corpuscular HGB Conc 32.9 g/dL (31.8-35.4); Mean Corpuscular Hemoglobin 30.2 pg (27.0-31.2); Mean Corpuscular Volume 91.7 fl (80-94); Mean Platelet Volume 8.5 fl (7.4-10.4); Monocytes # 0.3 K/mm3 (0.1-1.0); Neutrophils # 2.7 K/mm3 (1.8-7.8); Neutrophils % 61.2 % (37.0-80.0); Platelet Count 116 K/mm3 (142-424); Red Blood Count 4.79 M/mm3 (4.60-6.20); Red Cell Distribution Width 13.5 % (11.5-17.5); White Blood Count 4.5 K/mm3 (4.8-10.8)
--- NOTE | 2022-12-25 08:00 | US_ITS ---
FINAL REPORT CLINICAL HISTORY: transaminitis/alcoholic hepatitis FINDINGS: Sonographic images of the right upper quadrant were obtained. The pancreas is partially obscured. There is fatty infiltration of the liver The gallbladder appears normal without evidence of gallstones.There is no evidence of biliary ductal dilatation.The common duct measures 3 mm. Limited images of the right kidney are unremarkable. IMPRESSION: Fatty infiltration of the liver. Reviewed, Interpreted and Dictated by Bolivar Ojeda III, MD Transcribed by Marycruz Lima Authenticated and [facility]
--- NOTE | 2022-12-25 08:14 | SW/DCPLANNER ---
I spoke with patient this AM regarding outpatient and inpatient alcohol resources. After a lengthy discussion patient stated that he is not interested in inpatient or outpatient resources at this time. Patient stated that his goal is to change his support system and is working on changing jobs. [facility] resource list has been provided to this patient. I have also provided my name and number to this patient as a future reference. Patient has no further needs/questions at this time. Patient stated that he may discharge home today.
--- NOTE | 2022-12-25 09:20 | PC.NURSE ---
[address] alonzo hold gabapentin until sees pt 0915 ok for pt to have breakfast tray as he has already had US this am.
--- NOTE | 2022-12-25 09:35 | EXP.DC.SUM ---
General Admission date:: 12/23/22 Discharge date: 12/25/22 HPI HPI HPI: Mr. Menard is a 27-year-old male with a history of alcohol dependence. Previously heavy drinker for the past few years, 1 pint of liquor a day. Decided to quit drinking about 5 days ago. Has attempted to stop but developed significant nausea, abdominal pain, vomiting. Was having nonbloody/nonbilious emesis. Got to the point that he had nothing else to throw up and just had dry heaves. Decided to try and drink a little bit over the past 2 days but was unable to drink more than a few sips of water or alcohol. Presented to the ER today due to tremor, abdominal pain, feeling weak. Pain predominantly in the epigastrium. Denies any noted jaundice, fever, chills, sweats, melena, blood in stool. Of note has had an episode of pancreatitis in the past. Denies any history of gastritis or ulcers. Work-up in the ER positive for mild hepatitis with AST: AST ratio 2:1. Bilirubin mildly elevated. Coags normal. CT abdomen no perforation or free air. As patient still having significant pain, alcohol withdrawal symptoms, and unable to tolerate p.o. intake, ER consulted medicine for admission. On evaluation after arriving to the floor, patient is stable on room air. Has mild tremor in his hands. Tolerating rally pack. Would like to try to eat something but complaining of epigastric pain. We will trial GI cocktail. Denies any francisca emesis since admission. Hospital Course Hospital Course Hospital Course: 27-year-old male with history of alcohol dependence, presents with withdrawal symptoms, alcoholic hepatitis, alcoholic ketoacidosis. Initiated on CIWA protocol for alcohol withdrawal. Required medication daily for his symptoms. Given improving CIWA scores and patient's desire to go home to see his daughter, patient was deemed stable for discharge home with close follow-up with his PCP. Liver enzymes improving but not quite normal yet. Social work and case management assisted with providing resources and discussions on follow-up after discharge to facilitate an continued alcohol abstinence. Problems addressed as follows: Acute alcoholic hepatitis Alcoholic ketoacidosis, resolved Alcohol withdrawal -Patient presented with abdominal pain, nausea, vomiting, inability to keep food down, and withdrawal symptoms from alcohol. Found to have elevated liver enzymes on admission with AST/ALT 400/200 respectively. Improved somewhat to AST/ALT 239/175 on day of discharge. Needs repeat labs the beginning of next week to monitor for improvement. Right upper quadrant ultrasound obtained on morning of discharge showing fatty infiltration. Given that he was still having some mild withdrawal symptoms, discharged home with a few days of Ativan to assist with self tapering at home until he sees his PCP next week. Recommend continuing daily multivitamin. Treated with rally pack, thiamine, folate during admission. Patient tolerated this well. Nausea and vomiting Epigastric pain -Concern for gastritis versus esophagitis. Continue pantoprazole 40 mg daily. Tolerated GI cocktail well with increase in p.o. intake. Has been eating well since admission. Will continue pantoprazole at discharge. Zofran sent for as needed usage if he develops any nausea at home. Extensive conversation about treatment options to assist with alcohol cessation. Counseled on new medications and potential side effects. Counseled on follow-up with labs in the coming days and seeing his PCP next week. Referred to behavioral health for medical assisted therapy discussion. Spent 30 minutes in discharge counseling and direct care with patient. Exam Data for Last 24 hours Vital signs and Labs for Last 24 Hours: Temp Pulse Resp BP Pulse Ox O2 Del Method 98.2 F 90 20 138/91 H 97 Room Air 12/25/22 07:40 12/25/22 07:40 12/25/22 07:40 12/25/22 07:40 12/25/22 07:40 12/25/22 07:40 Laboratory Results - last
--- NOTE | 2022-12-26 13:53 | CARE MANAGER ---
Unable to reach patient to discuss recent discharge. Phone number is not a working number.
[2022-12-30 15:10] LABS: Vitamin B1 144.1 nmol/L (66.5-200.0)
== END 2022-12-25 13:45 | disposition home or self-care (01) | DRG 897 ==
LOC: ER 15:09 → 2ND 15:36
PROVIDERS: Admitting Provider Internal Medicine Adolescent Medicine; Emergency Provider Student in an Organized Health Care Education/Training Program; PCP Family Medicine; Visit Provider Internal Medicine Adolescent Medicine
DX: F10.239 Alcohol dependence with withdrawal, unspecified (principal); E87.29 Other acidosis; K70.10 Alcoholic hepatitis without ascites; F17.210 Nicotine dependence, cigarettes, uncomplicated; F17.290 Nicotine dependence, other tobacco product, uncomplicated
CPT/HCPCS: 36415; 74177; 76705; 80053; 80305; 82607; 82746; 83690; 83735; 84100; 84425; 85025; 85610; 85730; 99285; J2405; Q9967

== ENCOUNTER → 2022-12-29 11:58 | Outpatient (CLI) | payer OTHER, SELFPAY ==
[2022-12-29 12:42] LABS: Alanine Aminotransferase 188 U/L (12-78); Albumin Level 4.4 g/dl (3.5-5.0); Albumin/Globulin Ratio 1.6 (1.1-1.8); Alkaline Phosphatase 84 U/L (38-126); Anion Gap 12.1 mEq/L (5-15); Aspartate Amino Transferase 131 U/L (17-59); Bilirubin,Total 0.6 mg/dl (0.2-1.3); Blood Urea Nitrogen 10 mg/dl (9-20); Calcium 9.5 mg/dl (8.4-10.2); Carbon Dioxide 27 mmol/L (22.0-30.0); Chloride 103 mmol/L (98-107); Estimated Glomerular Filt Rate 115 ml/min (>60); GFR (African American) 139 ML/MIN (>60); Globulin 2.8 g/dL (1.3-3.2); Glucose 97 mg/dl (74-100); Potassium 4.1 mmoL/L (3.5-5.1); Sodium 138 mmol/L (136-145); Total Protein,Serum 7.2 g/dl (6.3-8.2)
== END ==
PROVIDERS: PCP Family Medicine; Visit Provider Internal Medicine Adolescent Medicine
DX: R10.13 Epigastric pain (principal); R11.2 Nausea with vomiting, unspecified; K70.10 Alcoholic hepatitis without ascites; F10.930 Alcohol use, unspecified with withdrawal, uncomplicated; E87.29 Other acidosis
CPT/HCPCS: 36415; 80053

== ENCOUNTER → 2022-12-30 10:51 | Outpatient (CLI) | payer OTHER, SELFPAY ==
--- NOTE | 2022-12-30 13:20 | CT_ITS ---
FINAL REPORT TECHNIQUE: Axial CT images of the abdomen and pelvis were obtained before and after the administration of IV contrast. Oral contrast was administered.This study was performed with techniques to keep radiation doses as low as reasonably achievable (ALARA). Individualized dose reduction techniques using automated exposure control or adjustment of mA and/or kV according to the patient''s size were employed. CLINICAL HISTORY: APPENDICITIS COMPARISON: 12/23/2022 FINDINGS: Abdomen: The lung bases are clear. The heart is normal in size. The liver has an unremarkable appearance, without evidence of mass or biliary duct dilatation. . The spleen is unremarkable. No adrenal masses present. The pancreas has an unremarkable appearance. The kidneys enhance normally. No evidence of renal stone or hydronephrosis. The aorta is normal in caliber. There is no free fluid or adenopathy. No mass or abnormal fluid collection is seen. Precontrast images demonstrate no evidence of nephrolithiasis. Pelvis: The appendix is at the upper limits of normal measuring 6 mm. There is no adjacent inflammation seen. No convincing evidence of appendicitis. The appearance is stable. The urinary bladder is unremarkable. There is no evidence of mass or adenopathy. There is partial improvement in the wall thickening of the distal ileum and ascending colon which may represent improved enteritis. No fluid collection identified. IMPRESSION: No convincing evidence for appendicitis. Partial improvement in wall thickening of the ileum and ascending colon may represent improved enteritis. Reviewed, Interpreted and Dictated by Bolivar Ojeda III, MD Transcribed by Milagros Forrest Authenticated and . [facility]
== END ==
PROVIDERS: PCP Family Medicine; Visit Provider Family Medicine
DX: R10.9 Unspecified abdominal pain (principal)
CPT/HCPCS: 74178; Q9967

== ENCOUNTER 2023-03-11 09:09 | Inpatient (IN) | payer OTHER, SELFPAY ==
[2023-03-11] VITALS (12 sets, daily range): BP systolic 128–182; BP diastolic 87–116; PULSE 77–134; RESP 12–24; TEMP 36.6–36.9; O2SAT 96–99; BMI 22.4; BMI 22.7
--- NOTE | 2023-03-11 09:08 | ECG_ITS ---
APPROVED REPORT Exam: Resting ECG HR:155 bpm ECG Measurements Heart Rate 155 AXES MD 96 P 82 QRSd 92 QRS 108 QT 309 T 72 QTc 396 Conclusion SINUS TACHYCARDIA WITH SHORT MD INTERVAL, POSSIBLE ATRIAL FLUTTER RIGHT AXIS DEVIATION [QRS AXIS > 100] NONSPECIFIC T-WAVE ABNORMALITY CRITICAL TEST RESULT UNCONFIRMED REPORT Electronically signed by : Jignesh Crawford MD 03/12/2023 21:28:38
--- NOTE | 2023-03-11 09:16 | PC.NURSE ---
seizure pads placed on BL bed rails
[2023-03-11 09:33] LABS: Basophils % 0.1 % (0.1-2.0); Eosinophils # 0.2 K/mm3 (0.0-0.4); Eosinophils % 0.6 % (0.1-12.0); Hematocrit 52.2 % (42.0-52.0); Mean Corpuscular HGB Conc 34.8 g/dL (31.8-35.4); Mean Corpuscular Hemoglobin 30.6 pg (27.0-31.2); Mean Corpuscular Volume 88.1 fl (80-94); Mean Platelet Volume 9.2 fl (7.4-10.4); Monocytes # 1.2 K/mm3 (0.1-1.0); Neutrophils # 22.2 K/mm3 (1.8-7.8); Neutrophils % 90.3 % (37.0-80.0); Platelet Count 382 K/mm3 (142-424); Red Blood Count 5.93 M/mm3 (4.60-6.20); Red Cell Distribution Width 13.3 % (11.5-17.5); White Blood Count 24.5 K/mm3 (4.8-10.8)
[2023-03-11 09:35] LABS: MANUAL DIFFERENTIAL MANUAL DIFFERENTIAL (MANUAL DIFF)
[2023-03-11 09:41] LABS: Albumin Level 5.5 g/dl (3.5-5.0); Albumin/Globulin Ratio 1.5 (1.1-1.8); Alkaline Phosphatase 125 U/L (38-126); Bilirubin,Total 1.7 mg/dl (0.2-1.3); Blood Urea Nitrogen 17 mg/dl (9-20); Calcium 10.1 mg/dl (8.4-10.2); Carbon Dioxide 21 mmol/L (22.0-30.0); Chloride 92 mmol/L (98-107); Creatinine Clearance Estimated 119 mL/min (50-200); Estimated Glomerular Filt Rate 88 ml/min (>60); GFR (African American) 107 ML/MIN (>60); Globulin 3.7 g/dL (1.3-3.2); Glucose 177 mg/dl (74-100); Lipase 168 U/L (23-300); Magnesium 1.2 mg/dl (1.6-2.3); Total Protein,Serum 9.2 g/dl (6.3-8.2)
--- NOTE | 2023-03-11 09:43 | PC.NURSE ---
medicated per JUL, abel rails up and seizure pads on bed, call light in reach.
[2023-03-11 09:46] LABS: Alanine Aminotransferase 139 U/L (12-78)
[2023-03-11 09:47] LABS: Aspartate Amino Transferase 102 U/L (17-59)
[2023-03-11 09:49] LABS: Sodium 139 mmol/L (136-145)
[2023-03-11 09:52] LABS: Troponin I < 0.01 ng/ml (0.00-0.034)
[2023-03-11 09:54] LABS: Lymphocytes % 3 % (10-50); Monocytes % 4 % (2-9); Neutrophils % 91 % (42-76); Total Cells Counted 100
[2023-03-11 09:55] LABS: Platelet Estimate Normal; RBC Morphology Normal
[2023-03-11 10:01] LABS: Hemoglobin 18.2 g/dL (14.1-18.0)
--- NOTE | 2023-03-11 10:01 | PC.NURSE ---
dr. simons at with u/s
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
--- NOTE | 2023-03-11 10:23 | XR_ITS ---
FINAL REPORT CLINICAL HISTORY: hematemesis FINDINGS: ABDOMEN SINGLE VIEW There is a nonspecific bowel gas pattern. No bowel dilation is identified. There is a moderate amount of retained stool throughout the colon. No abnormal calcification is seen. IMPRESSION: Moderate stool burden. Reviewed, Interpreted and Dictated by Bolivar Ojeda III, MD Transcribed by Lula Hernandez Authenticated and [facility]
--- NOTE | 2023-03-11 10:23 | XR_ITS ---
FINAL REPORT CLINICAL HISTORY: hematemesis COMPARISON: 06/26/2021 FINDINGS: SINGLE-VIEW CHEST The heart size is normal. The mediastinum is normal. The lungs are clear. There is no pneumothorax. IMPRESSION: No acute cardiopulmonary process. Reviewed, Interpreted and Dictated by Bolivar Ojeda III, MD Transcribed by Lula Hernandez Authenticated and [facility]
--- NOTE | 2023-03-11 10:43 | PC.NURSE ---
rad at bs
--- NOTE | 2023-03-11 11:08 | PC.NURSE ---
waiting blood donor recruiter for hospitalist
--- NOTE | 2023-03-11 11:09 | PC.NURSE ---
waiting industrial education instructor back from hospitalist
--- NOTE | 2023-03-11 11:22 | PC.NURSE ---
ER MD Ontiveros speaking with dr. alonzo
--- NOTE | 2023-03-11 11:25 | PC.NURSE ---
speaking with hospitalist
[2023-03-11 11:46] LABS: Phosphorous 3.1 mg/dl (2.5-4.5)
--- NOTE | 2023-03-11 11:51 | HMH.PHAINT1 ---
Pharmacy Intervention Comments: MEDICATION RECONCILIATION COMPLETED ON PATIENT USING EXTERNAL FILL HISTORY FROM PHARMACY. -MICHAEL CHAPIN, SUSAND
[2023-03-11 11:58] LABS: Activated Partial Thrombo Time 26.3 seconds (22.8-30.6); INR 1.04 (0.9-1.1); Prothrombin Time 11.2 seconds (10.1-12.5)
--- NOTE | 2023-03-11 12:12 | PC.NURSE ---
report called to emeka yadav on second floor
--- NOTE | 2023-03-11 13:01 | PC.NURSE ---
arrived by w/c from ED
[2023-03-11 13:31] LABS: Amphetamine/Metha Screen,Urine Negative ng/ml (<1000); Benzodiazepines Screen,Urine Positive ng/ml (<200)
[2023-03-11 13:32] LABS: Barbiturates Screen,Urine Negative ng/ml (<200)
[2023-03-11 13:33] LABS: Cannabinoid Screen,Urine Negative ng/ml (<50); Cocaine Screen,Urine Negative ng/ml (<300)
[2023-03-11 13:34] LABS: Methadone Screen,Urine Negative ng/ml (<300); Opiate Screen,Urine Positive ng/ml (<300)
[2023-03-11 13:35] LABS: Phencyclidine Screen,Urine Negative ng/ml (<25)
--- NOTE | 2023-03-11 14:44 | EXP.HP ---
History of Present Illness *Admission Date: 03/11/23 *Reason for visit:: Tremor, nausea and vomiting *History of present illness: Mr. Menadr is a 28-year-old male with history of chronic alcohol abuse. Presents with abdominal pain, tremor, nausea and vomiting. States pain has become very severe after he quit cold turkey approximately 1 day ago. Had been drinking heavily for the past week due to increased social stress. After quitting drinking, he developed significant nausea, vomiting, tremors. Reports severe epigastric pain. Quite shaky and tremulous. No seizures or loss Asnis. Work-up in the ER positive for elevation of liver enzymes and significant withdrawal score of CIWA greater than 15. Initiated on Valium and medicine consulted for admission for alcohol withdrawal. Patient started on IV fluids. After arriving to the floor, patient has been initiated on alcohol withdrawal protocol. Seeing some improvement in his symptoms with Valium. Complaining of significant pain in his abdomen, epigastrium is quite tender. Reviewed labs, lipase normal. On room air but tachycardic because of pain and withdrawal. Tremor in hands. Alert and oriented x3. States he has not eaten in over a week. Also reports having had some blood in his vomit and diarrhea. Expresses concern for pancreatitis which she has had in the past with his alcoholism. Was being referred by his PCP for Kristinl, interested in quitting alcohol. Recognizes his addiction. Has been going to counseling. Would like to continue treatment for alcohol abstinence after he improves from his withdrawal. [facility] Disclaimer: The information contained in this section may have been updated after the patient was seen, as this information can be updated by other users. Medical History Acute hemorrhoid Wrist fracture, left Family History Family history of hypertension Social History Smoking Status: Current every day smoker tobacco type: cigarettes and e-cigarettes alcohol intake: current current occupational status: employed and other Travel in the last 8 weeks: None household members: significant other housing: apartment lives independently: Yes marital status: single education level: high school service: No shelter: No well-balanced diet: daily or most days caffeine: No Review of Systems Review of Systems Review of systems (narrative): 14 point review of systems performed, pertinent positives and negatives as per HPI Meds Home Medications and Allergies Home Medications Medication Instructions Recorded Confirmed Type carvedilol 6.25 mg tablet 6.25 mg PO BID High Blood Pressure 03/11/23 03/11/23 History hydroxyzine HCl 10 mg tablet 10 mg PO DAILYP PRN Anxiety 03/11/23 03/11/23 History pantoprazole 40 mg tablet,delayed 40 mg PO DAILY Acid Reflux 03/11/23 03/11/23 History release New Prescriptions to Start Prescriptions: Allergies Allergy/AdvReac Type Severity Reaction Status Date / Time No Known Allergies Allergy Verified 12/23/22 16:04 Exam Data for Last 24 hours Vital signs and Labs for Last 24 Hours: Temp Pulse Resp BP Pulse Ox O2 Del Method 97.8 F 125 H 16 155/104 H 97 Room Air 03/11/23 13:51 03/11/23 13:51 03/11/23 13:51 03/11/23 13:51 03/11/23 13:51 03/11/23 13:51 Laboratory Results - last 24 hr 03/11/23 09:14: WBC 24.5 H*, RBC 5.93, Hgb 18.2 H, Hct 52.2 H, MCV 88.1, MCH 30.6, MCHC 34.8, RDW 13.3, Plt Count 382, MPV 9.2, Neut % (Auto) 90.3 H, Lymph % (Auto) 4.0 L, [place] % (Auto) 5.0, Eos % (Auto) 0.6, Baso % (Auto) 0.1, Neut # (Auto) 22.2 H, Lymph # (Auto) 1.0, [place] # (Auto) 1.2 H, Eos # (Auto) 0.2, Baso # (Auto) 0.0, Total Counted 100, Neutrophils % (Manual) 91 H, Lymphocytes % (Manual) 3 L, Monocytes % (Manual) 4, Metamyelocytes %
--- NOTE | 2023-03-11 17:36 | PC.NURSE ---
Pt has c/o pain to abdomen with a rating of 10 on the [employer] scale. Dilaudid administered and pain level is now tolerable. He has also c/o nausea. He remains sinus tach on telemetry. MD aware. Call light within reach.
--- NOTE | 2023-03-11 20:35 | PC.NURSE ---
pt ambulated to toilet with standby, denies bloody output. seizure pads place on bed railing.
--- NOTE | 2023-03-11 23:28 | PC.NURSE ---
Addendum entered by Eric Suarez RN 03/11/23 23:31: nausea reported. tx per JUL Original Note: pt woke up in pain, went to the bathroom - tx per jul & gave broth
[2023-03-12] VITALS (11 sets, daily range): BP systolic 112–162; BP diastolic 71–104; PULSE 60–117; RESP 12–34; TEMP 36.5–36.9; O2SAT 92–98; BMI 23.9
--- NOTE | 2023-03-12 02:20 | PC.NURSE ---
pt states I feel much better now
--- NOTE | 2023-03-12 03:05 | PC.NURSE ---
pt woke up with increased abd pain. notified hospitalist Tang, increased frequency of Dilaudid from Q4 to Q3
[2023-03-12 07:02] LABS: Chloride 103 mmol/L (98-107); Potassium 3.8 mmoL/L (3.5-5.1); Sodium 137 mmol/L (136-145)
[2023-03-12 07:05] LABS: Alanine Aminotransferase 61 U/L (12-78); Albumin/Globulin Ratio 1.5 (1.1-1.8); Alkaline Phosphatase 73 U/L (38-126); Anion Gap 8.8 mEq/L (5-15); Aspartate Amino Transferase 56 U/L (17-59); Bilirubin,Total 1.4 mg/dl (0.2-1.3); Blood Urea Nitrogen 12 mg/dl (9-20); Calcium 8.5 mg/dl (8.4-10.2); Carbon Dioxide 29 mmol/L (22.0-30.0); Creatinine Clearance Estimated 140 mL/min (50-200); Estimated Glomerular Filt Rate 100 ml/min (>60); GFR (African American) 121 ML/MIN (>60); Globulin 2.6 g/dL (1.3-3.2); Glucose 89 mg/dl (74-100); Total Protein,Serum 6.6 g/dl (6.3-8.2)
[2023-03-12 07:06] LABS: Magnesium 2.1 mg/dl (1.6-2.3)
[2023-03-12 08:40] LABS: Mean Corpuscular Hemoglobin 31.1 pg (27.0-31.2); Monocytes # 0.3 K/mm3 (0.1-1.0)
[2023-03-12 08:46] LABS: Basophils % 0.4 % (0.1-2.0); Eosinophils % 0.4 % (0.1-12.0); Hematocrit 37.5 % (42.0-52.0); Hemoglobin 13.3 g/dL (14.1-18.0); Lymphocytes % 30.2 % (10-50); Mean Corpuscular HGB Conc 35.4 g/dL (31.8-35.4); Mean Corpuscular Volume 87.8 fl (80-94); Mean Platelet Volume 9.5 fl (7.4-10.4); Monocytes % 4.8 % (1.7-9.3); Neutrophils # 4.3 K/mm3 (1.8-7.8); Neutrophils % 64.2 % (37.0-80.0); Platelet Count 205 K/mm3 (142-424); Red Blood Count 4.28 M/mm3 (4.60-6.20); Red Cell Distribution Width 13.2 % (11.5-17.5); White Blood Count 6.8 K/mm3 (4.8-10.8)
--- NOTE | 2023-03-12 14:05 | SW/DCPLANNER ---
Addendum entered by Vivienne Vicnete 03/13/23 14:34: I spoke w/ patient again regarding inpatient rehab resources: patient is not interested in rehab at this time. Patient would like to return home w/ family, continue / [facility] and establish care w/ Regina Noyola on Thursday03/18/23. Original Note: I spoke w/ this patient regarding plans once medically stable for discharge. Patient and I discussed inpatient rehab vs outpatient rehab. Patient stated that he is currently enrolled in counseling / [facility] and attends AA meetings. Patient is not interested in inpatient rehab at this time due to not being able to be away for 30 days. Patient that his PCP has set him up w/ Behavioral Health at [facility] for medication mgt. Patient expressed that he would like to go to his Behavioral Health apt on 03/18/23 w/ Jossy Noyola and continue to follow up / [facility] at this time. Patient did not have any further needs/questions. I will follow up w/ patient tomorrow morning. [facility] Resource list has been provided to this patient. Discharge date is unknown at this time.
--- NOTE | 2023-03-12 15:21 | CARE MANAGER ---
Laboratory Tests 03/11/23 03/11/23 03/12/23 09:14 13:06 05:35 WBC 24.5 H* RBC 5.93 Hgb 18.2 H Hct 52.2 H MCV 88.1 MCH 30.6 MCHC 34.8 RDW 13.3 Plt Count 382 MPV 9.2 Neut % (Auto) 90.3 H Lymph % (Auto) 4.0 L [place] % (Auto) 5.0 Eos % (Auto) 0.6 Baso % (Auto) 0.1 Neut # (Auto) 22.2 H Lymph # (Auto) 1.0 [place] # (Auto) 1.2 H Eos # (Auto) 0.2 Baso # (Auto) 0.0 Total Counted 100 Neutrophils % (Manual) 91 H Lymphocytes % (Manual) 3 L Monocytes % (Manual) 4 Metamyelocytes % 2.0 H Platelet Estimate Normal RBC Morphology Normal PT 11.2 INR 1.04 APTT 26.3 Sodium 139 137 Potassium 4.0 3.8 Chloride 92 L 103 Carbon Dioxide 21 L 29 Anion Gap 30.0 H 8.8 BUN 17 12 D Creatinine 1.00 0.90 Estimated Creat Clear 119 140 Estimated GFR 88 100 Est GFR ( Amer) 107 121 Glucose 177 H 89 D Calcium 10.1 8.5 Phosphorus 3.1 Magnesium 1.2 L 2.1 D Total Bilirubin 1.7 H 1.4 H AST 102 H 56 D ALT 139 H 61 D Alkaline Phosphatase 125 73 Troponin I < 0.01 Total Protein 9.2 H D 6.6 D Albumin 5.5 H 4.0 D Globulin 3.7 H 2.6 Albumin/Globulin Ratio 1.5 1.5 Lipase 168 Urine Opiates Screen Positive H Urine Methadone Screen Negative Ur Barbituates Screen Negative Ur Phencyclidine Scrn Negative Ur Amphetamines Screen Negative U Benzodiazepines Scrn Positive H Urine Cocaine Screen Negative U Marijuana (THC) Screen Negative 03/12/23 08:25 WBC 6.8 D RBC 4.28 L D Hgb 13.3 L D Hct 37.5 L MCV 87.8 MCH 31.1 MCHC 35.4 RDW 13.2 Plt Count 205 D MPV 9.5 Neut % (Auto) 64.2 Lymph % (Auto) 30.2 [place] % (Auto) 4.8 Eos % (Auto) 0.4 Baso % (Auto) 0.4 Neut # (Auto) 4.3 Lymph # (Auto) 2.0 [place] # (Auto) 0.3 Eos # (Auto) 0.0 Baso # (Auto) 0.0 Total Counted Neutrophils % (Manual) Lymphocytes % (Manual) Monocytes % (Manual) Metamyelocytes % Platelet Estimate RBC Morphology PT INR APTT Sodium Potassium Chloride Carbon Dioxide Anion Gap BUN Creatinine Estimated Creat Clear Estimated GFR Est GFR ( Amer) Glucose Calcium Phosphorus Magnesium Total Bilirubin AST ALT Alkaline Phosphatase Troponin I Total Protein Albumin Globulin Albumin/Globulin Ratio Lipase Urine Opiates Screen Urine Methadone Screen Ur Barbituates Screen Ur Phencyclidine Scrn Ur Amphetamines Screen U Benzodiazepines Scrn Urine Cocaine Screen U Marijuana (THC) Screen
--- NOTE | 2023-03-12 19:26 | EXP.ACUTE.PN ---
Subjective *Date: 03/12/23 *Time: 19:26 Interval history: CIWA scores overnight less than 6. Scored high this morning however at 17. Still having abdominal pain. Tolerating liquid intake. Heart rate improving. Afebrile. On room air Medical Exam Vital signs and Labs for Last 24 Hours: Vital Signs Temp Pulse Pulse Resp BP Pulse Ox O2 Del Method 03/12/23 17:49 Room Air 03/12/23 16:00 98.2 F 79 17 162/78 H 96 Room Air 03/12/23 16:00 90 03/12/23 12:00 80 03/12/23 15:53 Room Air 03/12/23 14:32 Room Air 03/12/23 13:00 Room Air 03/12/23 12:00 98.4 F 82 18 140/90 93 L Room Air 03/12/23 10:59 Room Air 03/12/23 08:04 110 H 03/12/23 08:00 93 L Room Air 03/12/23 08:38 Room Air 03/12/23 08:00 108 H 34 H 112/78 92 L Room Air 03/12/23 08:00 98.3 F 03/12/23 06:34 Room Air 03/12/23 06:00 117 H 19 146/104 H 96 Room Air 03/12/23 05:00 Room Air 03/12/23 04:00 94 L Room Air 03/12/23 04:25 60 03/12/23 04:00 97.7 F 03/12/23 03:00 Room Air 03/12/23 03:07 112 H 21 149/92 H 95 Room Air 03/12/23 02:00 74 19 133/94 H 97 Room Air 03/11/23 20:00 90 03/12/23 00:00 80 03/12/23 01:00 Room Air 03/12/23 00:00 82 12 135/91 H 96 Room Air 03/11/23 22:31 Room Air 03/11/23 22:00 77 12 128/87 97 Room Air 03/11/23 20:44 Room Air 03/11/23 20:00 108 H 97 Room Air 03/11/23 20:00 98.5 F O2 Flow Rate 03/12/23 17:49 03/12/23 16:00 03/12/23 16:00 03/12/23 12:00 03/12/23 15:53 03/12/23 14:32 03/12/23 13:00 03/12/23 12:00 03/12/23 10:59 03/12/23 08:04 03/12/23 08:00 03/12/23 08:38 03/12/23 08:00 03/12/23 08:00 03/12/23 06:34 03/12/23 06:00 03/12/23 05:00 96 03/12/23 04:00 03/12/23 04:25 03/12/23 04:00 03/12/23 03:00 03/12/23 03:07 03/12/23 02:00 03/11/23 20:00 03/12/23 00:00 03/12/23 01:00 03/12/23 00:00 03/11/23 22:31 03/11/23 22:00 03/11/23 20:44 03/11/23 20:00 03/11/23 20:00 Intake and Output 03/12/23 03/12/23 03/12/23 07:59 15:59 23:59 Intake Total 950 / 1070 120 / 1070 Output Total 1050 / 1050 0 / 1050 0 / 1050 Balance -1050 / 20 950 / 20 120 / 20 Intake: Intake, Oral Amount 400 / 520 120 / 520 Intake, Total IV Amount 550 / 550 Ceftriaxone Sodium 1 gm In 0.9 50 / 50 % Sodium Chloride 50 ml @ 100 mls/hr IV Q24H MAGDALENE Rx#:[id number] Mvi, Adult No.1 with Vit K 10 500 / 500 ml Thiamine HCl 100 mg Magnesium Sulfate 2 gm In Lactated Ringers 1000ML 1,000 ml @ 125 mls/hr IV DAILY [facility] Rx #:[id number] Output: Output, Urine Amount 1050 / 1050 0 / 1050 0 / 1050 Other: Number of Unmeasured Voids 1 1 Weight 81.9 kg Patient Weight 03/12/23 23:59 Weight 81.9 kg Laboratory Results - last 24 hr 03/12/23 05:35: Sodium 137, Potassium 3.8, Chloride 103, Carbon Dioxide 29, Anion Gap 8.8, BUN 12 D, Creatinine 0.90, Estimated Creat Clear 140, Estimated GFR 100, Est GFR ( Amer) 121, Glucose 89 D, Calcium 8.5, Magnesium 2.1 D, Total Bilirubin 1.4 H, AST 56 D, ALT 61 D, Alkaline Phosphatase 73, Total Protein 6.6 D, Albumin 4.0 D, Globulin 2.6, Albumin/Globulin Ratio 1.5 03/12/23 08:25: WBC 6.8 D, RBC 4.28 L D, Hgb 13.3 L D, Hct 37.5 L, MCV 87.8, MCH 31.1, MCHC 35.4, RDW 13.2, Plt Count 205 D, MPV 9.5, Neut % (Auto) 64.2, Lymph % (Auto) 30.2, [place] % (Auto) 4.8, Eos % (Auto) 0.4, Baso % (Auto) 0.4, Neut # (Auto) 4.3, Lymph # (Auto) 2.0, [place] # (Auto) 0.3, Eos # (Auto) 0.0, Baso # (Auto) 0.0 I & O for Labs for Last 24 Hours: Intake & Output 03/09/23 03/10/23 03/11/23 03/12/23 23:59 23:59 23:59 23:59 Intake Total 1969 / 1969 1070 / 1070 Output Total 600 / 1350 1050 / 1050 Balance 1370 / 620 Weight 78.1 kg 81.9 kg Constitutional: Present no
[2023-03-13] VITALS: BP 144/99; PULSE 76; RESP 18; TEMP 37.1; O2SAT 996
[2023-03-13 04:00] VITALS: BP 145/87; PULSE 84; RESP 18; TEMP 36.5; O2SAT 94; BMI 24.0
--- NOTE | 2023-03-13 05:17 | PC.NURSE ---
CIWA SCORES 3-4. C/O EPIGASTRIC/STOMACH DISCOMFORT. SAYS HE HAS PANCREATITIS. RECEIVING DILAUDID 2 MG IV Q 3 HRS. C/O NAUSEA AND MILD H/A.
[2023-03-13 06:43] LABS: Basophils % 0.4 % (0.1-2.0); Eosinophils # 0.1 K/mm3 (0.0-0.4); Eosinophils % 0.8 % (0.1-12.0); Hemoglobin 12.4 g/dL (14.1-18.0); Lymphocytes # 2.2 K/mm3 (0.7-4.5); Lymphocytes % 38.6 % (10-50); Mean Corpuscular HGB Conc 33.6 g/dL (31.8-35.4); Mean Corpuscular Hemoglobin 30.9 pg (27.0-31.2); Mean Corpuscular Volume 91.9 fl (80-94); Mean Platelet Volume 9.5 fl (7.4-10.4); Monocytes # 0.3 K/mm3 (0.1-1.0); Monocytes % 5.5 % (1.7-9.3); Neutrophils # 3.1 K/mm3 (1.8-7.8); Neutrophils % 54.7 % (37.0-80.0); Platelet Count 173 K/mm3 (142-424); Red Blood Count 4.02 M/mm3 (4.60-6.20); Red Cell Distribution Width 13.1 % (11.5-17.5); White Blood Count 5.6 K/mm3 (4.8-10.8)
[2023-03-13 06:48] LABS: Chloride 103 mmol/L (98-107)
[2023-03-13 06:49] LABS: Potassium 3.9 mmoL/L (3.5-5.1); Sodium 135 mmol/L (136-145)
[2023-03-13 06:51] LABS: Alanine Aminotransferase 48 U/L (12-78); Aspartate Amino Transferase 41 U/L (17-59); Bilirubin,Total 0.7 mg/dl (0.2-1.3); Blood Urea Nitrogen 6 mg/dl (9-20); Creatinine Clearance Estimated 159 mL/min (50-200); Estimated Glomerular Filt Rate 114 ml/min (>60); GFR (African American) 138 ML/MIN (>60)
[2023-03-13 06:52] LABS: Albumin Level 3.7 g/dl (3.5-5.0); Albumin/Globulin Ratio 1.5 (1.1-1.8); Alkaline Phosphatase 68 U/L (38-126); Anion Gap 6.9 mEq/L (5-15); Calcium 8.4 mg/dl (8.4-10.2); Carbon Dioxide 29 mmol/L (22.0-30.0); Globulin 2.4 g/dL (1.3-3.2); Glucose 95 mg/dl (74-100); Magnesium 1.9 mg/dl (1.6-2.3); Total Protein,Serum 6.1 g/dl (6.3-8.2)
[2023-03-13 08:00] VITALS: BP 132/79; PULSE 79; RESP 20; TEMP 36.8; O2SAT 98
[2023-03-13 09:16] LABS: Lipase 87 U/L (23-300)
--- NOTE | 2023-03-13 10:39 | US_ITS ---
FINAL REPORT CLINICAL HISTORY: RUQ pain, N/V FINDINGS: Sonographic images of the right upper quadrant were obtained. The pancreas is partially obscured.The liver has an unremarkable appearance. The gallbladder is contracted with mild wall thickening. The gallbladder wall measures up to 4 mm in thickness. There is no evidence of gallstones. There is no evidence of biliary ductal dilatation.The common duct measures 3 mm. Limited images of the right kidney are unremarkable. IMPRESSION: Collapsed gallbladder with mild wall thickening as a nonspecific finding. No evidence of gallstones or biliary ductal dilatation. Authenticated and ERN
--- NOTE | 2023-03-13 11:31 | PC.NURSE ---
courtesy tech note: chicken broth was given upon request. pt is sitting up in bed with family at BS. call light is within reach.
[2023-03-13 11:55] VITALS: BP 144/87; PULSE 67; RESP 16; TEMP 37; O2SAT 99
[2023-03-13 15:55] VITALS: BP 151/105; PULSE 85; RESP 18; TEMP 37.2; O2SAT 100
--- NOTE | 2023-03-13 16:30 | PC.NURSE ---
PT IS RESTING IN BED WITH VISITOR AT BEDSIDE. ALERT AND ORIENTED X4. PT VOMITED THIS MORNING AFTER BREAKFAST. CIWA SCORE THIS MORNING WAS 10 AND IS NOW A 6. PT MEDICATED PER MAR FOR DISCOMFORT. PT STATES HIS PAIN IS IN THE EPIGASTRIC REGION RADIATES TO THE RUQ. LUNG SOUNDS CLEAR. ABDOMEN SOFT/TENDER WITH ACTIVE BOWEL SOUNDS. AMBULATES TO THE BATHROOM. PT STATES HIS PAIN IS WORSE WITH MOVEMENT. WILL CONTINUE TO MONITOR.
--- NOTE | 2023-03-13 17:12 | EXP.ACUTE.PN ---
Subjective *Date: 03/13/23 *Time: 17:12 Interval history: Patient having fewer withdrawal symptoms. Still necessitating Valium however. Biggest complaint overnight has been nausea and abdominal pain. Still having right upper quadrant pain. Afebrile and hemodynamically stable. Improving heart rate. On room air. No diarrhea. No blood in vomit. Medical Exam Vital signs and Labs for Last 24 Hours: Vital Signs Temp Pulse Resp BP Pulse Ox O2 Del Method 03/13/23 15:55 98.9 F 85 18 151/105 H 100 Room Air 03/13/23 15:00 Room Air 03/13/23 13:00 Room Air 03/13/23 11:55 98.6 F 67 16 144/87 H 99 Room Air 03/13/23 11:00 Room Air 03/13/23 08:00 Room Air 03/13/23 09:00 Room Air 03/13/23 08:00 98.2 F 79 20 132/79 98 Room Air 03/13/23 06:26 Room Air 03/13/23 05:00 Room Air 03/13/23 04:00 97.7 F 84 18 145/87 H 94 L Room Air 03/13/23 03:00 Room Air 03/13/23 01:00 Room Air 03/12/23 23:00 Room Air 03/12/23 21:00 Room Air 03/12/23 20:00 98 Room Air 03/13/23 00:00 98.7 F 76 18 144/99 H 996 H Room Air 03/12/23 20:00 98.2 F 89 18 132/71 98 Room Air 03/12/23 17:49 Room Air Intake and Output 03/13/23 03/13/23 03/13/23 07:59 15:59 23:59 Intake Total 240 / 450 210 / 450 Output Total 600 / 600 Balance -360 / -150 210 / -150 Intake: Intake, Oral Amount 240 / 450 210 / 450 Output: Output, Urine Amount 600 / 600 Other: Weight 82.4 kg Patient Weight 03/13/23 23:59 Weight 82.4 kg Laboratory Results - last 24 hr 03/13/23 06:08: WBC 5.6, RBC 4.02 L, Hgb 12.4 L, Hct 37.0 L, MCV 91.9, MCH 30.9, MCHC 33.6, RDW 13.1, Plt Count 173, MPV 9.5, Neut % (Auto) 54.7, Lymph % (Auto) 38.6, [place] % (Auto) 5.5, Eos % (Auto) 0.8, Baso % (Auto) 0.4, Neut # (Auto) 3.1, Lymph # (Auto) 2.2, [place] # (Auto) 0.3, Eos # (Auto) 0.1, Baso # (Auto) 0.0, Sodium 135 L, Potassium 3.9, Chloride 103, Carbon Dioxide 29, Anion Gap 6.9, BUN 6 L D, Creatinine 0.80, Estimated Creat Clear 159, Estimated GFR 114, Est GFR ( Amer) 138, Glucose 95, Calcium 8.4, Magnesium 1.9, Total Bilirubin 0.7, AST 41 D, ALT 48, Alkaline Phosphatase 68, Total Protein 6.1 L, Albumin 3.7, Globulin 2.4, Albumin/Globulin Ratio 1.5 03/13/23 08:46: Lipase 87 I & O for Labs for Last 24 Hours: Intake & Output 03/10/23 03/11/23 03/12/23 03/13/23 23:59 23:59 23:59 23:59 Intake Total 1969 / 1969 1070 / 1310 450 / 450 Output Total 600 / 1350 1651 / 1951 600 / 600 Balance 1370 / 620 -581 / -641 -150 / -150 Weight 78.1 kg 81.9 kg 82.4 kg Constitutional: Present no acute distress Head: Present atraumatic and normocephalic ENT: Present normal exam Respiratory: Present normal respiratory effort Cardiac: Present Reg Rate and Rhythm GI: Present soft, tenderness (Epigastric and right upper quadrant) and normal bowel sounds; Absent distention Extremities: Present normal inspection and full ROM Skin: Present intact; Absent erythema Neuro: Present Grossly Intact, alert, awake, oriented x 3 and moves all extremities Comment:: tremor Assessment and Plan *Assessment and plan (1) Acute alcoholic hepatitis: Status: Acute Category: Medical Code(s): K70.10 - Alcoholic hepatitis without ascites (2) Alcoholic ketoacidosis: Status: Resolved Category: Medical Code(s): E87.29 - Other acidosis (3) Alcohol withdrawal: Status: Acute Qualifiers: Complication of substance-induced condition: with unspecified complication Qualified Code(s): F10.939 - Alcohol use, unspecified with withdrawal, unspecified Category: Medical Code(s): F10.939 - Alcohol use, unspecified with withdrawal, unspecified (4) Nausea & vomiting: Status: Resolved Qualifiers: Vomiting type: unspecified Qualified Code(s): R11.2 - Nausea with vomiting, unspecified Category: Medical Code(s): R11.2 - Naus
[2023-03-13 20:00] VITALS: BP 149/98; PULSE 79; RESP 18; TEMP 37.5; O2SAT 97
[2023-03-14] VITALS: BP 146/82; PULSE 50; RESP 16; TEMP 36.9; O2SAT 95
[2023-03-14 04:00] VITALS: BP 126/71; PULSE 56; RESP 16; TEMP 36.8; O2SAT 97; BMI 24.0
--- NOTE | 2023-03-14 06:05 | PC.NURSE ---
Patient has rested well this shift, at beginning of shift CIWA was a 5- medicated per orders. Patient then rested most of the shift with c/o pain when he woke up, medication given. CIWA this morning only a 2, with mild tremors, no other symptoms present at this time. Cooperative and pleasant with care. No acute changes. Has been up to bathroom independently. Will continue plan of care and medsur protocols.
--- NOTE | 2023-03-14 07:34 | EXP.DC.SUM ---
General Admission date:: 03/11/23 Discharge date: 03/14/23 HPI HPI HPI: Mr. Menard is a 28-year-old male with history of chronic alcohol abuse. Presents with abdominal pain, tremor, nausea and vomiting. States pain has become very severe after he quit cold turkey approximately 1 day ago. Had been drinking heavily for the past week due to increased social stress. After quitting drinking, he developed significant nausea, vomiting, tremors. Reports severe epigastric pain. Quite shaky and tremulous. No seizures or loss Asnis. Work-up in the ER positive for elevation of liver enzymes and significant withdrawal score of CIWA greater than 15. Initiated on Valium and medicine consulted for admission for alcohol withdrawal. Patient started on IV fluids. After arriving to the floor, patient has been initiated on alcohol withdrawal protocol. Seeing some improvement in his symptoms with Valium. Complaining of significant pain in his abdomen, epigastrium is quite tender. Reviewed labs, lipase normal. On room air but tachycardic because of pain and withdrawal. Tremor in hands. Alert and oriented x3. States he has not eaten in over a week. Also reports having had some blood in his vomit and diarrhea. Expresses concern for pancreatitis which she has had in the past with his alcoholism. Was being referred by his PCP for Kristinl, interested in quitting alcohol. Recognizes his addiction. Has been going to counseling. Would like to continue treatment for alcohol abstinence after he improves from his withdrawal. Hospital Course Hospital Course Hospital Course: 27-year-old male with history of alcohol dependence, presents with withdrawal symptoms, alcoholic hepatitis, alcoholic ketoacidosis. Initiated on CIWA protocol. ER consulted medicine for admission. Discussed case, given severity of symptoms, need for almost 30 mg of Valium while in the ER to control symptoms, request admission for further treatment. Patient would like to get off alcohol and proceed with abstinence therapy. Medicine agreed to admit to stepdown unit of care for further inpatient management. Patient has responded appropriately to CIWA protocol with gradual resolution of his withdrawal symptoms. Still having some mild anxiety at night. Continue care in the short-term until able to see psychiatry on Thursday for more definitive treatment for abstinence therapy. Still having some mild abdominal pain but tolerating p.o. liquids and minor nutrition. Has some gallbladder dysfunction on ultrasound. Stable for discharge home to continue to convalesce. Problems addressed as follows: Acute alcoholic hepatitis Alcoholic ketoacidosis Alcohol withdrawal -On presentation, liver enzymes and bilirubin slightly elevated. Had significantly elevated leukocytosis and elevated hemoglobin. Was initiated on CIWA protocol and treated for his severe withdrawal symptoms. Patient's symptoms have defervesced. Doing well at this time with CIWA scores of 0-6 in the past 24 hours. Treated with daily vitamin therapy and rally pack's. Was initiated on gabapentin to assist with alcohol withdrawal symptoms. We will continue gabapentin 200 mg twice daily with a 10-day course prescribed. Sent with short course of Valium for night for his anxiety until he sees psychiatry on Thursday. Has follow-up scheduled on 03/18 to discuss Vivitrol treatment. Recommend continuing daily multivitamin. Stable for discharge home. Nausea and vomiting Epigastric pain -Concern for gastritis versus esophagitis. Initiated on GI cocktail, pantoprazole, sucralfate. Has had gradual improvement in gastritis/GERD symptoms. Still having some right upper quadrant pain, worse after eating. Ultrasound obtained showing contracted gallbladder. Will refer to surgery for outpatient eval as he recovers from his acute event. Will need further evaluation for gallbladder dysfunction. No concerns for cholecystitis or choledocholithiasis
[2023-03-14 07:38] LABS: Chloride 102 mmol/L (98-107); Sodium 136 mmol/L (136-145)
[2023-03-14 07:40] LABS: Blood Urea Nitrogen 7 mg/dl (9-20); Creatinine Clearance Estimated 181 mL/min (50-200); Estimated Glomerular Filt Rate 133 ml/min (>60); GFR (African American) 161 ML/MIN (>60)
[2023-03-14 07:41] LABS: Alanine Aminotransferase 64 U/L (12-78); Albumin Level 4.5 g/dl (3.5-5.0); Albumin/Globulin Ratio 1.6 (1.1-1.8); Alkaline Phosphatase 70 U/L (38-126); Aspartate Amino Transferase 60 U/L (17-59); Calcium 9.3 mg/dl (8.4-10.2); Carbon Dioxide 24 mmol/L (22.0-30.0); Globulin 2.8 g/dL (1.3-3.2); Glucose 95 mg/dl (74-100); Total Protein,Serum 7.3 g/dl (6.3-8.2)
[2023-03-14 07:43] LABS: Basophils % 0.2 % (0.1-2.0); Eosinophils # 0.1 K/mm3 (0.0-0.4); Eosinophils % 0.6 % (0.1-12.0); Hematocrit 41.9 % (42.0-52.0); Hemoglobin 14.4 g/dL (14.1-18.0); Lymphocytes # 1.3 K/mm3 (0.7-4.5); Mean Corpuscular HGB Conc 34.4 g/dL (31.8-35.4); Mean Corpuscular Hemoglobin 30.4 pg (27.0-31.2); Mean Corpuscular Volume 88.4 fl (80-94); Mean Platelet Volume 9.8 fl (7.4-10.4); Monocytes # 0.4 K/mm3 (0.1-1.0); Monocytes % 3.3 % (1.7-9.3); Neutrophils # 9.9 K/mm3 (1.8-7.8); Neutrophils % 84.9 % (37.0-80.0); Platelet Count 180 K/mm3 (142-424); Red Blood Count 4.74 M/mm3 (4.60-6.20); White Blood Count 11.7 K/mm3 (4.8-10.8)
[2023-03-14 07:52] VITALS: BP 155/88; PULSE 60; RESP 16; TEMP 36.6; O2SAT 98
[2023-03-14 08:32] LABS: Magnesium 1.9 mg/dl (1.6-2.3)
--- NOTE | 2023-03-17 11:32 | CARE MANAGER ---
Attempted to contact patient x2 related to hospital discharge. Phone number is not working. ZAINAB Henriquez
== END 2023-03-14 11:40 | disposition home or self-care (01) | DRG 897 ==
LOC: ER 11:35 → 2ND 11:57
PROVIDERS: Admitting Provider Internal Medicine Adolescent Medicine; Emergency Provider Emergency Medicine; PCP Family Medicine; Visit Provider Internal Medicine Adolescent Medicine
DX: F10.239 Alcohol dependence with withdrawal, unspecified (principal); E87.29 Other acidosis; K92.0 Hematemesis; K70.10 Alcoholic hepatitis without ascites; R10.13 Epigastric pain; F17.210 Nicotine dependence, cigarettes, uncomplicated; F17.290 Nicotine dependence, other tobacco product, uncomplicated
CPT/HCPCS: 36415; 71045; 74019; 76705; 80053; 80305; 83690; 83735; 84100; 84484; 85007; 85025; 85610; 85730; 93005; 99291; J0696; J2405; J3475

== ENCOUNTER → 2023-03-27 10:14 | Outpatient (CLI) | payer OTHER, SELFPAY ==
--- NOTE | 2023-03-27 10:17 | NM_ITS ---
FINAL REPORT CLINICAL HISTORY: right upper quad pain u/s neg for stones 10:45 am 7.95 mci Tc choletec 1.7 mcg of cck pain during cck COMPARISON: None FINDINGS: Sequential anterior projection images of the abdomen were obtained after the intravenous injection of 7.95 mCi technetium 99m Choletec. There is normal uptake of radiotracer by the liver. The gallbladder and bile ducts are visualized by 10 minutes. Small bowel activity is normal. After 1 hour, 1.7 ?g of CCK was injected intravenously for calculation of gallbladder ejection fraction. The gallbladder ejection fraction is 93 %, which is within normal limits. IMPRESSION: No evidence of cystic duct or bile duct obstruction. Normal gallbladder ejection fraction of 93 %. Reviewed, Interpreted and Dictated by Bekah Gagnon MD Transcribed by Milagros Forrest Authenticated and [facility]
== END ==
PROVIDERS: PCP Family Medicine; Visit Provider Surgery
DX: R10.11 Right upper quadrant pain (principal)
CPT/HCPCS: 78227; A9537; J2805

== ENCOUNTER 2023-04-02 10:52 | Day surgery (SDC) | payer OTHER, SELFPAY ==
[2023-04-02] VITALS (11 sets, daily range): BP systolic 113–151; BP diastolic 69–108; PULSE 70–95; RESP 16–18; TEMP 35.8–36.7; O2SAT 97–100; BMI 24.0
--- NOTE | 2023-04-02 11:24 | ECG_ITS ---
APPROVED REPORT Exam: Resting ECG HR:80 bpm ECG Measurements Heart Rate 80 AXES UT 136 P 51 QRSd 90 QRS 43 QT 320 T 47 QTc 357 Conclusion SINUS RHYTHM NORMAL ECG UNCONFIRMED REPORT Electronically signed by : Jignesh Crawford MD 04/02/2023 20:56:23
--- NOTE | 2023-04-02 11:41 | P.PNANES_ITS ---
[facility] Disclaimer: The information contained in this section may have been updated after the patient was seen, as this information can be updated by other users. Medical History (Updated 04/02/23 @ 11:31 by Nimesh Paul RN) Acute hemorrhoid Anxiety and depression GERD (gastroesophageal reflux disease) HTN (hypertension) Wrist fracture, left Surgical History (Updated 04/02/23 @ 11:31 by Nimesh Paul RN) History of wisdom tooth extraction Family History (Updated 04/02/23 @ 11:31 by Nimesh Paul RN) Other Family history of cancer Family history of hypertension Social History (Updated 04/02/23 @ 11:32 by Nimesh Paul RN) Smoking Status: Current every day smoker tobacco type: cigarettes and e- cigarettes alcohol intake: former substance use type: other details: EtOH abuse current occupational status: employed and other Travel in the last 8 weeks: None household members: significant other housing: apartment lives independently: Yes marital status: single education level: high school service: No prison: No well-balanced diet: daily or most days caffeine: No [facility] Anesthesia Checklist Patient Identification Patient Identification: Arm Band and Verbal (Name & ) Structural Data Admitted From: Home Planned Operative Procedure/s: Lap Lisa Consent for Planned Operative Procedure(s) Verified: Yes Verified Documents: Surgical Consent and History and Physical NPO Status Verified Time NPO: 20:00 Chart Verification Results Verified: CBC, BMP, ECG and Chest Xray Additional verifications Patient : No Anesthesia Reactions: No Hx Blood Transfusions: No Blood Transfusion Reaction: No Cephalosporin Allergy: No Previous Colonoscopy: No Cardiovascular Assessment Heart Sounds: S1 & S2 Pulse Rhythm: Irregular Peripheral Edema: No Airway Assessment Mallampati Score:: Class II C-Spine Mobility Assessed: Yes (FROM) TMJ Mobility Assessed: Yes Dentition: Good Dentition (Nothing loose per pt.) Neurological Assessment Level of Consciousness: Awake, Alert, Appropriate and Follows Commands Hx Seizures: No Numbness or tingling in extremities: No Anesthesia Plan Anesthesia Risk discussed: Yes Anesthesia Plan: Verified ASA Class: III Anesthesia Type: General
--- NOTE | 2023-04-02 13:07 | P.OP_ITS ---
Date of procedure: 04/02/23 Pre-op Diagnosis:: Biliary dyskinesia Post-op Diagnosis:: Chronic cholecystitis Procedure performed:: Laparoscopic cholecystectomy Surgeon:: Bertrand Joseph MD Anesthesia: GETCatracho Estimated blood loss (mL): 15 Operative findings:: Fairly severe infundibular thickening Operative note:: After informed consent was obtained, the patient was taken to the operating room and placed in the supine position. General anesthesia was induced and the abdomen was prepped and draped in a sterile fashion. After infiltration with local anesthetic an infraumbilical incision was made. A Veress needle was placed in position. The abdomen was insufflated. A 5 mm optical trocar was placed in position. Under direct visualization, a 12 mm trocar was placed in the subxiphoid position and 2 additional 5 mm trocars were placed in the right upper quadrant. The gallbladder was elevated up and over the liver margin. The tissue around the cystic duct was carefully dissected. 3 clips were placed proximally and the duct was transected with harmonic silvino. Harmonic silvino were then utilized to dissect the gallbladder away from the liver margin with careful attention to the control of the cystic artery. The gallbladder was p laced in a retrieval bag and removed through the subxiphoid trocar site. The right upper quadrant was thoroughly irrigated. No active bleeding or bile leak was noted. Fascia at the subxiphoid trocar site was reapproximated utilizing the NeoClose device. The remaining trocars were removed. All wounds were irrigated and skin was closed with 4-0 Monocryl in a mattress fashion to facilitate hemostasis. Dressings were applied. The patient's anesthetic agents were reversed and extubation was completed prior to transfer to recovery in stable condition. Condition: stable Disposition: PACU Specimens:: Gallbladder and contents Complications:: No immediate
--- NOTE | 2023-04-02 13:21 | P.PNANES_ITS ---
[facility] Anesthesia Record Part I Anesthesia Record I Intake, IV Amount: 750 Hydration: Adequate Estimated blood loss (mL): 25 Urine output (mL): 0 Blood Products used (#): none Blood Pressure: 151/108 SaO2: 99 Pulse Rate: 95 Airway Patency: Patent Respiratory Rate: 18 Temperature: 96.4 F Patient is:: Awake (Talking) and Stable Stable to PACU at:: 13:19
--- NOTE | 2023-04-06 07:14 | EXP.ANES.II ---
[facility] Anesthesia Record Part II Anesthesia Record Part II Discharge Time: 14:04 Destination: Surgical Day Care (OP Surgery) PACU nurse assessment reviewed?: Yes Patient Condition:: Good Anesthesia Complications:: None Swallowing reflex intact?: Yes Airway Patency: Patent Cyanosis?: No Blood Pressure: 133/77 SaO2: 98 Respiratory Rate: 16 Pulse Rate: 74 Temperature: 98 F Mental Status: Alert & Oriented Pain level:: 0 Nausea and/or vomitting:: None Intake, IV Amount: 0 Hydration: Adequate
[2023-04-06 07:16] VITALS: BP 133/77; PULSE 74; RESP 16; TEMP 36.6; O2SAT 98
== END 2023-04-02 14:35 | disposition home or self-care (01) ==
PROVIDERS: PCP Family Medicine; Visit Provider Surgery
PROC: 0FT44ZZ Resection of Gallbladder, Percutaneous Endoscopic Approach (ICD-10-PCS; CPT 47562; principal; 2023-04-02 13:00)
DX: K81.1 Chronic cholecystitis (principal)
CPT/HCPCS: 47562; 93005; 96374; J2405